=== PATIENT | female | born 1970 | race Caucasian/White ===

== ENCOUNTER 2016-12-30 01:21 | Emergency (ER) | payer OTHER ==
[~2016-12-30] VITALS: Ht 167.6 cm; Wt 84.1 kg
[~2016-12-30 01:21] MED LIST: ALBUAER19 INH; ATOR10TA82 PO; BECL0.3A INH; BUSP15TA70 PO; CLX20 PO; DOCU100C22 PO; ESTR0.3T PO; INSDGI SQ; LISI-461 PO; MAGN400T6 PO; METO25TA3 PO; NVLGI SC; ONDA4TAB46 PO; PRLSR20 PO
[2016-12-30 01:25] VITALS: TEMP 36.6; Ht 167.6 cm; Wt 84.1 kg
[2016-12-30] MEDS ORDERED: KETOROLAC TROMETHAMINE 30 MG/ML VIAL IV STA (01:51)
--- NOTE | 2016-12-30 01:51 | EMERGENCY ROOM VISIT NOTE ---
History Report prepared by Charisse: Marina Vásquez Under the Supervision of: Dr. Luz Avina D.O. First contact with patient: 01:33 Chief Complaint: NECK PAIN Stated Complaint: SEVER NECK PAIN, PRESSURE DOWN SPINE & JOINT PAIN History of Present Illness The patient is a 46 year old female who presents to the Emergency Room with complaints of constant neck pain beginning 1 week ago. The patient states that she has cervical disc disease and has been seen by multiple physicians and surgeons in the last 5 years. She notes that she had an injection in July that only helped for a few days. She reports that today she is having pressure and pain going down her spine that she has never experienced before. She complains of spine pain, joint pain in her fingers, hands, legs, feet, hip pain , leg pain, and lack of sleep secondary to pain. The patient reports that she has been diagnosed with Lyme disease and was taking antibiotics and her joint pain has worsened tonight. She notes that she goes to a pain clinic and was on hydrocodone in July. The patient reports that she was told that she also had a bulging disc. Source of History: patient Onset: 1 week ago Position: neck Quality: pressure Timing: constant Note: She complains of spine pain, joint pain in her fingers, hands, legs, feet, hip pain, leg pain, and lack of sleep secondary to pain. Review of Systems See HPI for pertinent positives & negatives. A total of 10 systems reviewed and were otherwise negative. Past Medical & Surgical Medical Problems: (1) Abdominal pain (2) Anxiety (3) section (4) DIAB MARGARITA WO COMPL, TYPE II OR UNSPEC TYPE, NOT UNCNTRLD (5) Diabetes (6) ESOPHAGEAL REFLUX (7) HTN (hypertension) (8) HYPERLIPIDEMIA NEC/NOS (9) Hypertension (10) Kidney disease (11) MIGRAINE W/O AURA W/O INTRACT MGRN W/O STATUS MIGRAINOSUS (12) OVARIAN CYST NEC/NOS (13) TOBACCO USE DISORDER (14) UTERINE LEIOMYOMA NOS Surgical Problems: (1) H/O esophagogastroduodenoscopy (2) H/O laparoscopy (3) H/O oophorectomy (4) H/O: (5) History of partial hysterectomy (6) History of tonsillectomy (7) S/P cholecystectomy Family History FH: cancer FHx: diabetes mellitus FHx: gallbladder disease FHx: heart disease FHx: hypertension FHx: lung disease FHx: seizures Heart disease Social History Smoking Status: Current Every Day Smoker Alcohol Use: none Drug Use: none Marital Status: Housing Status: lives with family Occupation Status: employed Current/Historical Medications Scheduled Amitriptyline Hcl (Elavil), 10-20 MG PO HS Beclomethasone Dip (Qvar), 2 PUFFS PO BID Citalopram (Citalopram Hydrobromide), 20 MG PO DAILY Estrogens, Conjugated (Premarin), 0.3 MG PO DAILY Insulin Aspart (Novolog Penfill), SQ AC Insulin Glargine (Lantus), SC QPM Lisinopril (Lisinopril), 10 MG PO DAILY Lorazepam (Lorazepam), 1 MG PO HS Metoclopramide HCl (Metoclopramide HCl), 5 MG PO ACHS Metoprolol Succinate (Metoprolol Succinate ER), 25 MG PO DAILY Omeprazole (Prilosec), 20 MG PO DAILY Sennosides (Senokot), 2 TAB PO BID Scheduled PRN Albuterol Hfa (Ventolin Hfa), 2 PUFFS INH Q4 PRN for SOB/Wheezing Ondansetron Hcl (Zofran), 8 MG PO Q6 PRN for Nausea or Vomiting Polyethylene Glycol 3350 (Miralax), 17 GM PO DAILY PRN for Constipation Allergies Coded Allergies: Sulfa Antibiotics (Unverified Allergy, Intermediate, RASH/SWELLS/HIVES, ) Cefuroxime (Verified Allergy, Mild, RASH, 12/30/16) BEE STING (Unverified Allergy, Unknown, swelling, 12/30/16) Nicotine (Verified Allergy, Unknown, RASH, 12/30/16) NICOTINE PATCH Physical Exam Vital Signs Date Time Temp Pulse Resp B/P Pulse Ox O2 Delivery O2 Flow Rate FiO2 12/30/16 04:13 77 18 124/73 95 12/30/16 03:06 68 16 107/73 97 Room Air 12/30/16 01:25 36.6 76 18 120/70 95 Room Air Physical Exam HEENT: Head - normocephalic and atraumatic Pupils are equal, round, and reactive to light. Extraocular eye muscles are intact, and sclera are anicteric. Nose - moist nasal mucosa without discharge. Mouth - moist buccal mucosa. Oropharynx is nonerythematous and there is no tonsillar exudate or edema noted. Neck: Supple; no JVD, nuchal rigidity, cervical lymphadenopathy, or auscultated bruits. Some discomfort with palpation over the cervical spine. Heart: Regular rate and rhythm. There is a normal S1 and S2 with no murmurs, clicks, or gallops appreciated. Lungs: Clear to auscultation bilaterally with no wheezes, rales, or rhonchi. Abdomen: Soft, completely nontender, nondistended, with good bowel sounds. There are no palpable pulsatile masses or hepatosplenomegaly. There is no guarding, rigidity, or rebound noted. Extremities: No evidence of cyanosis, clubbing, or edema. There are easily palpable peripheral pulses. Skin: warm and dry with good turgor and no rashes. Neuro: No deficits noted; nonfocal exam. Medical Decision & Procedures Laboratory Results 12/30/16 02:06 Red Blood Count 4.66, Mean Corpuscular Volume 82.8, Mean Corpuscular Hemoglobin 28.5, Mean Corpuscular Hemoglobin Concent 34.5, Mean Platelet Volume 10.3, Neutrophils (%) (Auto) 52.7, Lymphocytes (%) (Auto) 38.0, Monocytes (%) (Auto) 7.5, Eosinophils (%) (Auto) 1.3, Basophils (%) (Auto) 0.4, Neutrophils # (Auto) 4.13, Lymphocytes # (Auto) 2.98, Monocytes # (Auto) 0.59, Eosinophils # (Auto) 0.10, Basophils # (Auto) 0.03 12/30/16 02:06 Test 12/30/16 02:06 White Blood Count 7.84 K/uL (4.8-10.8) Red Blood Count 4.66 M/uL (4.2-5.4) Hemoglobin 13.3 g/dL (12.0-16.0) Hematocrit 38.6 % (37-47) Mean Corpuscular Volume 82.8 fL (80-100) Mean Corpuscular Hemoglobin 28.5 pg (25-34) Mean Corpuscular Hemoglobin Concent 34.5 g/dl (32-36) Platelet Count 140 K/uL (130-400) Mean Platelet Volume 10.3 fL (7.4-10.4) Neutrophils (%) (Auto) 52.7 % Lymphocytes (%) (Auto) 38.0 % Monocytes (%) (Auto) 7.5 % Eosinophils (%) (Auto) 1.3 % Basophils (%) (Auto) 0.4 % Neutrophils # (Auto) 4.13 K/uL (1.4-6.5) Lymphocytes # (Auto) 2.98 K/uL (1.2-3.4) Monocytes # (Auto) 0.59 K/uL (0.11-0.59) Eosinophils # (Auto) 0.10 K/uL (0-0.5) Basophils # (Auto) 0.03 K/uL (0-0.2) RDW Standard Deviation 40.2 fL (36.4-46.3) RDW Coefficient of Variation 13.3 % (11.5-14.5) Immature Granulocyte % (Auto) 0.1 % Immature Granulocyte # (Auto) 0.01 K/uL (0.00-0.02) Erythrocyte Sedimentation Rate 17 mm/hr (0-21) Anion Gap 8.0 mmol/L (3-11) Est Creatinine Clear Calc Drug Dose 124.5 ml/min Estimated GFR () 126.4 Estimated GFR (Non- 109.1 BUN/Creatinine Ratio 10.6 (10-20) Calcium Level 8.6 mg/dl (8.5-10.1) C-Reactive Protein 0.69 mg/dl (0-0.29) Beta-Hydroxybutyric Acid 0.67 mg/dL (0.2-2.81) Lyme Disease IgG Antibody NEG (NEG) Laboratory results per my review. Medications Administered Medications (Trade) Dose Ordered Sig/Terrance Route Start Time Stop Time Status Last Admin Dose Admin Ketorolac Tromethamine (Toradol Inj) 30 mg NOW STAT IV 12/30/16 01:51 12/30/16 01:52 DC 12/30/16 02:07 30 MG Hydromorphone HCl (Dilaudid Inj) 2 mg NOW STAT IV 12/30/16 03:29 12/30/16 03:30 DC 12/30/16 03:43 2 MG Procedure 0151: Toradol Inj 30mg IV. 0329: Dilaudid Inj 2mg IV. ED Course 0136: Past medical records reviewed. The patient was evaluated in room A11. A complete history and physical exam was performed. Laboratory studies were drawn as above. 0151: Toradol Inj 30mg IV. 0324: I reevaluated the patient and she is still in pain. 0329: Dilaudid Inj 2mg IV. 0404: Upon reevaluation, the patient is doing well . I discussed findings and results with her. She verbalized agreement of the treatment plan. The patient was discharged home. Medical Decision The patient is a 46 year old female who presents to the ED with neck pain. Differential diagnosis includes cervical radiculopathy, cervical disc disease, degenerative joint disease of the neck, recurrent lyme disease, arthralgias. LABS: Sed Rate 17 Lyme IGM is equivocal IGG is negative C-Reactive Protein is 0.6 Glucose of 321 BHA of 0.67 Normal Renal Function This is a 46-year-old female patient presents to the emergency department with cervical neck pain that is a chronic problem for her but has worsened over the past 4 or 5 days. Patient also describes significant arthralgias. The patient has a history of Lyme disease for which she has taken a course of antibiotics. However, her joint pain has reappeared. Her Lyme titer was a equivocal. She had an MRI just one year ago the cervical spine which showed some degenerative changes. I recommended that she follow-up with her orthopedic spine surgeon for further evaluation of the increased neck pain. As for the arthralgias, the patient can follow-up with her PCP for narcotic pain medication. She will also require close follow-up for the result of the Lyme titer. She will potentially need to go back on antibiotics. The patient was significantly hyperglycemic. I've asked her to watch her sugars closely and dose her insulin accordingly. She should follow-up with her PCP with regards to this. Impression Primary Impression: Neck pain Additional Impressions: Hyperglycemia Arthralgia Scribe Attestation The scribe's documentation has been prepared under my direction and personally reviewed by me in its entirety. I confirm that the note above accurately reflects all work, treatment, procedures, and medical decision making performed by me. Departure Information Dispostion Home / Self-Care Referrals Allyson Dent M.D. (PCP) Forms HOME CARE DOCUMENTATION FORM, IMPORTANT VISIT INFORMATION, WORK / SCHOOL INSTRUCTIONS Patient Instructions My [facility] Additional Instructions Follow up with your PCP about Lyme result and high blood sugar. Keep a strict log of your BSG for follow up Follow up with Dr. Magana about the neck pain and possible need for another MRI Problem Qualifiers
[2016-12-30 02:11] LABS: BASO % 0.4 %; BASO ABS # 0.03 K/uL (0-0.2); COMPLETE YES; EOS % 1.3 %; HEMATOCRIT 38.6 % (37-47); IG% 0.1 %; LYMPH ABS # 2.98 K/uL (1.2-3.4); MEAN CELL VOLUME 82.8 fL (80-100); MEAN CORPUSCULAR HEMOGLOBIN 28.5 pg (25-34); MEAN CORPUSCULAR HGB CONC 34.5 g/dl (32-36); MEAN PLATELET VOLUME 10.3 fL (7.4-10.4); MONO % 7.5 %; NEUT % 52.7 %; PLATELET COUNT 140 K/uL (130-400); RED BLOOD COUNT 4.66 M/uL (4.2-5.4); WHITE BLOOD COUNT 7.84 K/uL (4.8-10.8)
[2016-12-30 02:37] LABS: BUN/CREATININE RATIO 10.6 (10-20); CALCIUM 8.6 mg/dl (8.5-10.1); CREATININE 0.63 mg/dl (0.60-1.20); POTASSIUM 3.8 mmol/L (3.5-5.1)
[2016-12-30 02:38] LABS: C-REACTIVE PROTEIN 0.69 mg/dl (0-0.29)
[2016-12-30 02:48] LABS: BETA-HYDROXYBUTYRATE 0.67 mg/dL (0.2-2.81)
[2016-12-30 03:01] LABS: LYME DISEASE AB IGG NEG (NEG)
[2016-12-30 03:07] LABS: LYME DISEASE AB IGM EQUIVOCAL (NEG)
[2016-12-30] MEDS ORDERED: TPRSR/25 PO (03:10)
[2016-12-30] MEDS ORDERED: RGL/5 PO (03:15)
[2016-12-30] MEDS ORDERED: AMIT10TA6 PO (03:17)
[2016-12-30] MEDS ORDERED: INSU1INJ2 SQ (03:19)
[2016-12-30] MEDS ORDERED: INSDGI SC (03:19)
[2016-12-30] MEDS ORDERED: HYDROmorphone INJ 2 MG/ML SYR/VIAL IV STA (03:29)
[2016-12-30 04:13] VITALS: BP 124/73; PULSE 77; O2SAT 95
[2017-01-02 10:16] LABS: 18KDIGG BAND NONREACTIVE (NONREACTIVE); 23KDIGG BAND REACTIVE (NONREACTIVE); 23KDIGM BAND REACTIVE (NONREACTIVE); 28KDIGG BAND NONREACTIVE (NONREACTIVE); 30KDIGG BAND NONREACTIVE (NONREACTIVE); 39KDIGG BAND REACTIVE (NONREACTIVE); 39KDIGM BAND NONREACTIVE (NONREACTIVE); 41KDIGG BAND REACTIVE (NONREACTIVE); 41KDIGM BAND NONREACTIVE (NONREACTIVE); 45KDIGG BAND NONREACTIVE (NONREACTIVE); 58KDIGG BAND NONREACTIVE (NONREACTIVE); 66KDIGG BAND REACTIVE (NONREACTIVE); 93KDIGG BAND NONREACTIVE (NONREACTIVE)
[2017-06-15] MEDS ORDERED: ASPEC81 PO (12:03)
[2017-06-15] MEDS ORDERED: TPRSR25 PO (12:03)
[2017-06-15] MEDS ORDERED: PRT40 PO (12:03)
[2017-06-15] MEDS ORDERED: SIMV20TA5 PO (12:38)
[2017-07-29] MEDS ORDERED: POLY335019 PO (00:34)
[2017-07-29] MEDS ORDERED: LISI-461 PO (03:10)
[2017-07-29] MEDS ORDERED: PRM/3 PO (03:10)
[2017-07-29] MEDS ORDERED: QVRINH80 PO (03:13)
[2017-07-29] MEDS ORDERED: VNTHFA/IN INH (03:13)
[2017-07-29] MEDS ORDERED: ONDA8TAB6 PO (03:15)
[2017-07-29] MEDS ORDERED: SENN-63 PO (03:17)
[2017-07-29] MEDS ORDERED: ATV1 PO (03:41)
== END 2016-12-30 04:10 | disposition home or self-care (01) ==
LOC: C.EDB 01:24 → C.EDA 04:10
DX: M54.2 Cervicalgia (principal); E11.65 Type 2 diabetes mellitus with hyperglycemia; M25.50 Pain in unspecified joint; E78.5 Hyperlipidemia, unspecified; I12.9 Hypertensive chronic kidney disease with stage 1 through stage 4 chronic kidney disease, or unspecified chronic kidney disease; N18.9 Chronic kidney disease, unspecified; K21.9 Gastro-esophageal reflux disease without esophagitis; N83.209 Unspecified ovarian cyst, unspecified side; F41.9 Anxiety disorder, unspecified; F17.200 Nicotine dependence, unspecified, uncomplicated; Z90.710 Acquired absence of both cervix and uterus; Z90.49 Acquired absence of other specified parts of digestive tract; Z90.721 Acquired absence of ovaries, unilateral; Z98.890 Other specified postprocedural states; Z79.4 Long term (current) use of insulin; Z79.899 Other long term (current) drug therapy; Z88.2 Allergy status to sulfonamides; Z88.8 Allergy status to other drugs, medicaments and biological substances; Z80.9 Family history of malignant neoplasm, unspecified; Z83.3 Family history of diabetes mellitus; Z83.79 Family history of other diseases of the digestive system; Z82.49 Family history of ischemic heart disease and other diseases of the circulatory system; Z82.0 Family history of epilepsy and other diseases of the nervous system

== ENCOUNTER 2016-12-31 14:26 | Inpatient (IN) | payer OTHER ==
[~2016-12-31] VITALS: Ht 167.6 cm; Wt 86.4 kg
[~2016-12-31 14:26] MED LIST changes: -ALBUAER19 INH; +AMIT10TA6 PO; -ATOR10TA82 PO; -BECL0.3A INH; -BUSP15TA70 PO; -DOCU100C22 PO; -ESTR0.3T PO; +INSDGI SC; -INSDGI SQ; +INSU1INJ2 SQ; -LISI-461 PO; -MAGN400T6 PO; -METO25TA3 PO; -NVLGI SC; -ONDA4TAB46 PO; +RGL/5 PO; +TPRSR/25 PO
[2016-12-31] MEDS ORDERED: KETOROLAC TROMETHAMINE 30 MG/ML VIAL IV STA (16:33)
[2016-12-31] MEDS ORDERED: SODIUM CHLORIDE 0.9% 1000ML 1,000 ML IV STA (16:33)
[2016-12-31] MEDS ORDERED: ONDANSETRON INJ 2 MG/ML 2 ML VIAL IV STA (16:33)
[2016-12-31] MEDS ORDERED: FENTANYL CITRATE INJ 50 MCG/1 ML 2 ML VIAL IV PRN (16:45)
--- NOTE | 2016-12-31 16:48 | EMERGENCY ROOM VISIT NOTE ---
History Report prepared by Charisse: Lana Morelos Under the Supervision of: Dr. Alban Amanad D.O. First contact with patient: 16:23 Chief Complaint: VOMITING Stated Complaint: SEVERE JOINT PAIN, VOMITING Nursing Triage Summary: Pt reports "severe" joint pain for 2 weeks vomiting since yesterday Seen Saturday for same History of Present Illness The patient is a 46 year old female who presents to the Emergency Room with complaints of persistent vomiting that started yesterday. She notes she has not been able to keep any food or water or down. Zofran has provided minimal relief. She called her primary care doctors office this morning and states they had no openings, so they referred her to the ED for further evaluation. The patient also complains of persistent joint pain for the past 2 weeks, rating her current discomfort as a 10/10. She admits to a history of Lyme disease that was fist diagnosed in June 2016. She was treated with antibiotics immediately afterwards. The patient was seen here in the ED yesterday for the same symptoms and produced an inconclusive Lyme test. She was also noted to have elevated CRP levels. The patient states the pain is worse in her wrists, knees and toes. Source of History: patient Onset: yesterday Position: other (global) Quality: other (vomiting) Timing: other (persistent) Modifying Factors (Relieving): anti-emetics (Zofran) Review of Systems See HPI for pertinent positives & negatives. A total of 10 systems reviewed and were otherwise negative. Past Medical & Surgical Medical Problems: (1) Abdominal pain (2) Anxiety (3) section (4) DIAB MARGARITA WO COMPL, TYPE II OR UNSPEC TYPE, NOT UNCNTRLD (5) Diabetes (6) ESOPHAGEAL REFLUX (7) HTN (hypertension) (8) HYPERLIPIDEMIA NEC/NOS (9) Hypertension (10) Kidney disease (11) MIGRAINE W/O AURA W/O INTRACT MGRN W/O STATUS MIGRAINOSUS (12) OVARIAN CYST NEC/NOS (13) TOBACCO USE DISORDER (14) UTERINE LEIOMYOMA NOS Surgical Problems: (1) H/O esophagogastroduodenoscopy (2) H/O laparoscopy (3) H/O oophorectomy (4) H/O: (5) History of partial hysterectomy (6) History of tonsillectomy (7) S/P cholecystectomy Family History FH: cancer FHx: diabetes mellitus FHx: gallbladder disease FHx: heart disease FHx: hypertension FHx: lung disease FHx: seizures Heart disease Social History Smoking Status: Current Every Day Smoker Alcohol Use: none Drug Use: none Marital Status: Housing Status: lives with family Occupation Status: employed Current/Historical Medications Scheduled Amitriptyline Hcl (Elavil), 10-20 MG PO HS Beclomethasone Dip (Qvar), 2 PUFFS PO BID Citalopram (Citalopram Hydrobromide), 20 MG PO DAILY Estrogens, Conjugated (Premarin), 0.3 MG PO DAILY Insulin Aspart (Novolog Penfill), SQ AC Insulin Glargine (Lantus), SC QPM Lisinopril (Lisinopril), 10 MG PO DAILY Lorazepam (Lorazepam), 1 MG PO HS Metoclopramide HCl (Metoclopramide HCl), 5 MG PO ACHS Metoprolol Succinate (Metoprolol Succinate ER), 25 MG PO DAILY Omeprazole (Prilosec), 20 MG PO DAILY Sennosides (Senokot), 2 TAB PO BID Scheduled PRN Albuterol Hfa (Ventolin Hfa), 2 PUFFS INH Q4 PRN for SOB/Wheezing Ondansetron Hcl (Zofran), 8 MG PO Q6 PRN for Nausea or Vomiting Polyethylene Glycol 3350 (Miralax), 17 GM PO DAILY PRN for Constipation Allergies Coded Allergies: Sulfa Antibiotics (Unverified Allergy, Intermediate, RASH/SWELLS/HIVES, ) Cefuroxime (Verified Allergy, Mild, RASH, 12/31/16) BEE STING (Unverified Allergy, Unknown, swelling, 12/31/16) Nicotine (Verified Allergy, Unknown, RASH, 12/31/16) NICOTINE PATCH Physical Exam Vital Signs Date Time Temp Pulse Resp B/P Pulse Ox O2 Delivery O2 Flow Rate FiO2 12/31/16 18:30 110/69 12/31/16 18:26 63 24 96 12/31/16 18:00 114/79 12/31/16 17:56 72 15 96 12/31/16 17:40 65 18 113/79 94 Room Air 12/31/16 17:34 113/79 12/31/16 17:34 64 12/31/16 14:34 36.7 92 18 126/85 97 Room Air Physical Exam CONSTITUTIONAL/VITAL SIGNS: Reviewed / noted above. GENERAL: Non-toxic in appearance. INTEGUMENTARY: Warm, dry, and [place]. HEAD: Normocephalic. EYES: without scleral icterus or trauma. ENT/OROPHARYNX: clear and moist. LYMPHADENOPATHY/NECK: Is supple without lymphadenopathy or meningismus. RESPIRATORY: Lungs clear and equal. CARDIOVASCULAR: Regular rate and rhythm. GI/ABDOMEN: Soft and nontender. No organomegaly or pulsatile mass. No rebound or guarding. Normal bowel sounds. EXTREMITIES: Warm and well perfused. BACK: No CVA tenderness. NEUROLOGICAL: Intact without focal deficits. PSYCHIATRIC: normal affect. MUSCULOSKELETAL: Normally developed with good muscle tone. Medical Decision & Procedures ER Provider Diagnostic Interpretation: This X-Ray was reviewed and interpreted by myself and the radiologist. CHEST ONE VIEW PORTABLE IMPRESSION: No significant change compared to the prior study. No acute process. Electronically signed by: Hoang Jules M.D. 12/31/2016 4:51 PM Laboratory Results 12/31/16 17:09 Red Blood Count 4.61, Mean Corpuscular Volume 83.9, Mean Corpuscular Hemoglobin 28.9, Mean Corpuscular Hemoglobin Concent 34.4, Mean Platelet Volume 10.4, Neutrophils (%) (Auto) 53.0, Lymphocytes (%) (Auto) 40.4, Monocytes (%) (Auto) 5.1, Eosinophils (%) (Auto) 1.0, Basophils (%) (Auto) 0.4, Neutrophils # (Auto) 3.77, Lymphocytes # (Auto) 2.88, Monocytes # (Auto) 0.36, Eosinophils # (Auto) 0.07, Basophils # (Auto) 0.03 12/31/16 17:09 Test 12/31/16 17:09 White Blood Count 7.12 K/uL (4.8-10.8) Red Blood Count 4.61 M/uL (4.2-5.4) Hemoglobin 13.3 g/dL (12.0-16.0) Hematocrit 38.7 % (37-47) Mean Corpuscular Volume 83.9 fL (80-100) Mean Corpuscular Hemoglobin 28.9 pg (25-34) Mean Corpuscular Hemoglobin Concent 34.4 g/dl (32-36) Platelet Count 154 K/uL (130-400) Mean Platelet Volume 10.4 fL (7.4-10.4) Neutrophils (%) (Auto) 53.0 % Lymphocytes (%) (Auto) 40.4 % Monocytes (%) (Auto) 5.1 % Eosinophils (%) (Auto) 1.0 % Basophils (%) (Auto) 0.4 % Neutrophils # (Auto) 3.77 K/uL (1.4-6.5) Lymphocytes # (Auto) 2.88 K/uL (1.2-3.4) Monocytes # (Auto) 0.36 K/uL (0.11-0.59) Eosinophils # (Auto) 0.07 K/uL (0-0.5) Basophils # (Auto) 0.03 K/uL (0-0.2) RDW Standard Deviation 40.3 fL (36.4-46.3) RDW Coefficient of Variation 13.4 % (11.5-14.5) Immature Granulocyte % (Auto) 0.1 % Immature Granulocyte # (Auto) 0.01 K/uL (0.00-0.02) Prothrombin Time 11.4 SECONDS (9.0-12.0) Prothromb Time International Ratio 1.1 (0.9-1.1) Activated Partial Thromboplast Time 24.9 SECONDS (21.0-31.0) Partial Thromboplastin Ratio 1.0 Urine Color YELLOW Urine Appearance CLEAR (CLEAR) Urine pH 6.5 (4.5-7.5) Urine Specific [place] 1.018 (1.000-1.030) Urine Protein NEG (NEG) Urine Glucose (UA) 3+ (NEG) Urine Ketones NEG (NEG) Urine Occult Blood NEG (NEG) Urine Nitrite NEG (NEG) Urine Bilirubin NEG (NEG) Urine Urobilinogen NEG (NEG) Urine Leukocyte Esterase NEG (NEG) Urine WBC (Auto) 1-5 /hpf (0-5) Urine RBC (Auto) 0-4 /hpf (0-4) Urine Hyaline Casts (Auto) 0 /lpf (0-5) Urine Epithelial Cells (Auto) 10-20 /lpf (0-5) Urine Bacteria (Auto) NEG (NEG) Anion Gap 4.0 mmol/L (3-11) Est Creatinine Clear Calc Drug Dose 104.9 ml/min Estimated GFR () 114.2 Estimated GFR (Non- 98.5 BUN/Creatinine Ratio 11.0 (10-20) Calcium Level 9.3 mg/dl (8.5-10.1) Total Bilirubin 0.5 mg/dl (0.2-1) Direct Bilirubin < 0.1 mg/dl (0-0.2) Aspartate Amino Transf (AST/SGOT) 11 U/L (15-37) Alanine Aminotransferase (ALT/SGPT) 37 U/L (12-78) Alkaline Phosphatase 112 U/L (45-117) Total Protein 7.1 gm/dl (6.4-8.2) Albumin 3.6 gm/dl (3.4-5.0) Lipase 1075 U/L (73-393) Beta-Hydroxybutyric Acid 0.54 mg/dL (0.2-2.81) Laboratory results as stated above per my review. Medications Administered Medications (Trade) Dose Ordered Sig/Terrance Route Start Time Stop Time Status Last Admin Dose Admin Sodium Chloride (Nss 1000ml) 1,000 ml @ 999 mls/hr Q1H1M STAT IV 12/31/16 16:33 12/31/16 17:33 DC 12/31/16 17:29 999 MLS/HR Ondansetron HCl (Zofran Inj) 4 mg NOW STAT IV 12/31/16 16:33 12/31/16 16:36 DC 12/31/16 17:29 4 MG Fentanyl Citrate (Fentanyl Inj) 100 mcg Q1H PRN IV 12/31/16 16:45 01/14/17 16:44 12/31/16 17:32 100 MCG Ketorolac Tromethamine (Toradol Inj) 30 mg NOW STAT IV 12/31/16 16:33 12/31/16 16:36 DC 12/31/16 17:30 30 MG ED Course 1629: Previous medical records were reviewed. The patient was evaluated in room B8. A complete history and physical examination was performed. 1633: Toradol 30 mg IV, Zofran 4 mg IV, NSS 1000 ml @ 999 mls/hr IV. 1645: Fentanyl Citrate 100 mcg IV. 1855: I reevaluated the patient. I discussed my recommendation that she remain in the hospital for further evaluation and management and she verbalized complete understanding and agreement. 1899: I discussed the patients case with Emani Alfredo. The patient will be further evaluated. Medical Decision Etiologies such as gastroenteritis, food borne illness, infections, appendicitis , diverticulitis, inflammatory bowel disease, obstruction, GI bleed, biliary pathology, as well as others were entertained. This is a 46-year-old female who presents to the ED with a chief complaint of nausea and vomiting. The patient was seen here yesterday for severe joint pain and neck pain. She had a workup including a CBC, sedimentation rate and Lyme disease testing. The patient states that her nausea and vomiting started last night. She reports some generalized abdominal pain. Vital signs are normal. She is in no distress. Exam reveals some mild diffuse abdominal tenderness. Nothing focal. Exam was otherwise unremarkable. Chest x-ray was negative for acute disease. CBC is normal. LFTs are normal. Glucose was elevated at 326. Lipase is 1075. The patient was treated with IV fluids, IV Toradol and IV fentanyl. She was given IV Zofran. The patient has minimal tenderness after reevaluation the epigastric area. She'll be seen for further inpatient evaluation and care by the hospitalist service. Consults Time Called: 1856 Consulting Physician: Emani Alfredo Returned Call: [phone] I discussed the patients case with Emani Alfredo. The patient will be further evaluated. Impression Primary Impression: Vomiting Additional Impression: Pancreatitis Scribe Attestation The scribe's documentation has been prepared under my direction and personally reviewed by me in its entirety. I confirm that the note above accurately reflects all work, treatment, procedures, and medical decision making performed by me. Departure Information Dispostion Being Evaluated By Hospitalist Patient Instructions My [facility] Problem Qualifiers
--- NOTE | 2016-12-31 16:53 | DIAGNOSTIC IMAGING REPORT ---
CHEST ONE VIEW PORTABLE HISTORY: Generalized abdominal pain. COMPARISON: Chest 11/13/2015. FINDINGS: Mild interstitial thickening at the lung bases, unchanged. This is likely chronic. No new focal lung consolidations to suggest pneumonia. No evidence for pulmonary edema. The heart is top normal in size. No pleural effusions. No pneumothorax. IMPRESSION: No significant change compared to the prior study. No acute process. Electronically signed by: Hoang Jules M.D. 12/31/2016 4:51 PM Dictated Date/Time: 12/31/2016 4:50 PM
[2016-12-31 17:40] LABS: BASO % 0.4 %; BASO ABS # 0.03 K/uL (0-0.2); COMPLETE YES; HEMATOCRIT 38.7 % (37-47); IG% 0.1 %; LYMPH % 40.4 %; LYMPH ABS # 2.88 K/uL (1.2-3.4); MEAN CELL VOLUME 83.9 fL (80-100); MEAN CORPUSCULAR HEMOGLOBIN 28.9 pg (25-34); MEAN CORPUSCULAR HGB CONC 34.4 g/dl (32-36); MEAN PLATELET VOLUME 10.4 fL (7.4-10.4); MONO % 5.1 %; PLATELET COUNT 154 K/uL (130-400); RED BLOOD COUNT 4.61 M/uL (4.2-5.4); WHITE BLOOD COUNT 7.12 K/uL (4.8-10.8)
[2016-12-31 17:51] LABS: INR 1.1 (0.9-1.1); PROTHROMBIN TIME (PATIENT) 11.4 SECONDS (9.0-12.0)
[2016-12-31 17:52] LABS: URINE APPEARANCE CLEAR (CLEAR); URINE BILIRUBIN NEG (NEG); URINE COLOR YELLOW; URINE NITRITE NEG (NEG); URINE PH 6.5 (4.5-7.5); URINE SPECIFIC GRAVITY 1.018 (1.000-1.030); UROBILINOGEN NEG (NEG); ZZUR CULT IF INDIC CLEAN CATCH NO
[2016-12-31 17:58] LABS: MANUAL MICROSCOPIC REQUIRED? NO; REVIEW REQ? NO
[2016-12-31 18:12] LABS: ALT/SGPT 37 U/L (12-78); AST/SGOT 11 U/L (15-37); BLOOD UREA NITROGEN 8 mg/dl (7-18); CALCIUM 9.3 mg/dl (8.5-10.1); CARBON DIOXIDE 31 mmol/L (21-32); CHLORIDE 99 mmol/L (98-107); CREATININE 0.74 mg/dl (0.60-1.20); GLUCOSE 326 mg/dl (70-99); SODIUM 134 mmol/L (136-145)
[2016-12-31 18:21] LABS: ALKALINE PHOSPHATASE 112 U/L (45-117); BETA-HYDROXYBUTYRATE 0.54 mg/dL (0.2-2.81)
[2016-12-31 20:30] VITALS: BP 102/68; PULSE 76; TEMP 36.4; O2SAT 95; BMI 29.5
[2016-12-31] MEDS ORDERED: POLYETHYLENE (MIRALAX) 17 GM PACK PO PRN (20:30)
[2016-12-31] MEDS ORDERED: GLUCOSE 10 TABS/TUBE PO PRN (20:30)
[2016-12-31] MEDS ORDERED: GLUCOSE 40% GEL 15 GM TUBE PO PRN (20:30)
[2016-12-31] MEDS ORDERED: MoRPHine SULFATE 2 MG/ML CARP IV PRN (20:30)
[2016-12-31] MEDS ORDERED: ONDANSETRON 8 MG TAB PO PRN (20:30)
[2016-12-31] MEDS ORDERED: AMITRIPTYLINE HCL 10 MG TAB PO PRN (20:30)
[2016-12-31] MEDS ORDERED: DEXTROSE 50% 50 ML SYR IV PRN (20:30)
[2016-12-31] MEDS ORDERED: NITROGLYCERIN 0.4 MG SL PER TAB CHARGE SL PRN (20:30)
[2016-12-31] MEDS ORDERED: ACETAMINOPHEN 325 MG TAB PO PRN (20:30)
[2016-12-31] MEDS ORDERED: IBUPROFEN 200 MG TAB PO PRN (20:30)
[2016-12-31] MEDS ORDERED: GLUCAGON FOR INJ 1 MG VIAL SQ PRN (20:30)
[2016-12-31 20:49] LABS: MAGNESIUM 1.7 mg/dl (1.8-2.4); THYROID STIMULATING HORMONE 0.553 uIu/ml (0.300-4.500)
[2016-12-31] MEDS: INSULIN ASPART 100 UNITS/ML 3 ML PEN SC SCH (21:00)
[2016-12-31] MEDS ORDERED: MoRPHine SULFATE 2 MG/ML CARP ONE (21:20)
[2016-12-31] MEDS ORDERED: MAGNESIUM SULFATE 1GM / D5W 1 GM in PREMIXED IN D5W 100 ML IV ONE (21:30)
--- NOTE | 2016-12-31 22:25 | DIAGNOSTIC IMAGING REPORT ---
ULTRASOUND RIGHT UPPER QUADRANT ABDOMEN CLINICAL HISTORY: Right upper quadrant abdominal pain. COMPARISON STUDY: Abdominal CT dated 01/05/2016. TECHNIQUE: Real-time, grayscale, and color flow sonography of the right upper quadrant of the abdomen was performed. Images are reviewed in the transverse and longitudinal planes. FINDINGS: Liver: The liver is top normal in size and demonstrates heterogeneously increased echotexture suggesting hepatic steatosis. There is minimal central intrahepatic biliary ductal dilatation. The main portal vein is patent. Gallbladder: The gallbladder is surgically absent. The common bile duct measures up to 0.6 cm in diameter. Pancreas: Visualized portions of the pancreatic head and body are normal in appearance. Right kidney: Survey images of the right kidney demonstrate normal size and echotexture. There is no hydronephrosis. Ascites: None. IMPRESSION: 1. No acute sonographic abnormality is identified in the right upper quadrant noting status post cholecystectomy. 2. Findings suggest mild hepatic steatosis. Electronically signed by: Dilan Lazo M.D. 12/31/2016 10:23 PM Dictated Date/Time: 12/31/2016 10:21 PM
[2016-12-31] MEDS: LACTATED RINGER'S 1000ML 1,000 ML IV SCH (23:10)
[2016-12-31] MEDS: LORAZEPAM 1 MG TAB PO SCH (23:14)
[2016-12-31] MEDS: SENNA 8.6 MG TAB PO SCH (23:14)
[2016-12-31] MEDS: METOCLOPRAMIDE HCL 5 MG TAB PO SCH (23:14)
[2016-12-31 23:15] VITALS: BP 91/56; PULSE 67; TEMP 36.4; O2SAT 94
[2016-12-31] MEDS: INSULIN GLARGINE SOLOSTAR 100 UNITS/ML 3 ML PEN SC SCH (23:15)
[2016-12-31] MEDS: BECLOMETHASONE DIP HFA 80 MCG 8.7G INH INH SCH (23:16)
[2016-12-31] MEDS: ENOXAPARIN 40 MG/0.4 ML SYR SC SCH (23:18)
--- NOTE | 2016-12-31 23:37 | HISTORY & PHYSICAL EXAMINATION ---
DATE OF ADMISSION: 12/31/2016 PRIMARY CARE DOCTOR: Dr. Filipe Hoffman obtained from px and records. CHIEF COMPLAINT: Abdominal pain, nausea and vomiting. HISTORY OF PRESENT ILLNESS: Medical history significant for hypertension, hyperlipidemia, DM2 insulin requiring, ongoing tobacco abuse, GERD, gastroparesis as per records , hx Lyme disease status post treatment. Recent confinement in March 2016 for headache, abnormal Lyme tests and possible viral illness. Patient completed an outpatient course of Doxycycline prescribed by PCP as per records. Since that time has constant joint aches all over, stiffness especially in the hands and neck stiffness. Patient was seen at the Emergency Room yesterday for worsening neck and joint pain over the last few days. equiv Lyme test, abn CRP Patient subsequently sent home. Today the patient had sharp epigastric pain, intractable nausea and vomiting. Good bowel movement. Transient substernal pain, pleuritic w/sob. No fever, no chills. She denies alcohol intake. MEDICAL HISTORY: As above. SURGERIES: She has had hysterectomy, tonsillectomy, cholecystectomy, oophorectomy and other gynecologic procedures. HOME MEDICATIONS: Include; Ventolin, Elavil, citalopram, Lantus, lisinopril, lorazepam, Reglan, metoclopramide, Prilosec, Zofran, MiraLax and Senokot. ALLERGIES: TO BEE STING, CEFUROXIME, NICOTINE AND SULFA. FAMILY HISTORY: Heart disease, diabetes and rheumatoid arthritis. PERSONAL AND SOCIAL HISTORY: Half a pack daily. She denies alcohol intake. Homemaker. REVIEW OF SYSTEMS: As per HPI, all others negative. PHYSICAL EXAMINATION: VITAL SIGNS: Blood pressure is noted to be 110/60, pulse rate 63, RR 20, temperature 37 O2 sats 98 on room air. GENERAL: Noted to be uncomfortable, overweight. No respiratory distress. Looks older than stated age. SKIN: Normal color. HEENT: [place] palpebral conjunctivae. Dry mucosa. NECK: No JVD. Supple. CHEST: Clear to auscultation. No anterior chest wall tenderness. ABDOMEN: Epigastric tenderness. EXTREMITIES: No edema, no tenderness NEUROLOGIC: No gross focality. LABORATORIES: Hemoglobin was noted to be 13.3 hematocrit 38.7, white cell count 10 platelets 154. Sodium 130, potassium 4, chloride 99, CO2 31, BUN 8, creatinine 0.7 and glucose 326. Troponin was normal. Lipase was 1075. D-dimer was normal. HgA1c 9.1 (03/2016) Chest x-ray; borderline cardiomegaly. EKG; no ischemia. ASSESSMENT: 1. Atypical chest pain/sob possibly from anxiety/nausea/vomiting sx 2. hyperlipasemia 2 vomiting sx possible pancreatitis 3. joint aches/neck pain for months px attributes sx to Lyme dse sp tx ro rheumatoid arthritis. 4. History of Lyme disease status post treatment equivocal rpt Lyme test from yesterday's ER visit 5. HTN , stable 6. DM2, insulin-requiring suboptimal control as of recent outpx HgA1c. 7. ongoing tobacco abuse PLAN: PCU. analgesia (judicious narcotic use), anti-emetics, anxiolytic prn Follow cardiac markers, 2D echo. Follow lipase. IVF, bowel rest for now. Biliary ultrasound. Further management pending workup results. serologic testing for rheumatoid arthritis outpx Rheumatology consult ID consult RE abn Lyme test Px counselled to stop smoking. Basal insulin adjusted for n.p.o./sips state for now, ISS BG goal 140-180. Carb count coverage indicated for suboptimal blood sugar control. Px due for HgA1C recheck. DVT prophylaxis. Lovenox SQ Full code. MTDD
[2017-01-01 04:17] VITALS: BP 100/62; PULSE 61; TEMP 36.6; O2SAT 95
[2017-01-01 06:10] LABS: BASO % 0.5 %; BASO ABS # 0.03 K/uL (0-0.2); COMPLETE YES; EOS % 1.3 %; IG% 0.2 %; LYMPH % 49.2 %; MEAN CORPUSCULAR HEMOGLOBIN 28.6 pg (25-34); MEAN CORPUSCULAR HGB CONC 33.7 g/dl (32-36); MEAN PLATELET VOLUME 9.8 fL (7.4-10.4); MONO % 5.4 %; NEUT % 43.4 %; PLATELET COUNT 126 K/uL (130-400); RED BLOOD COUNT 4.12 M/uL (4.2-5.4)
[2017-01-01] MEDS: METOCLOPRAMIDE HCL 5 MG TAB PO SCH ×4 (06:28→21:17)
[2017-01-01] MEDS: LACTATED RINGER'S 1000ML 1,000 ML IV SCH ×3 (06:28→16:45)
[2017-01-01] MEDS: OXYCODONE/ACETAMINOPHEN 5-325 TAB PO PRN ×3 (06:35→23:13)
[2017-01-01 06:51] LABS: ALKALINE PHOSPHATASE 102 U/L (45-117); ALT/SGPT 64 U/L (12-78); AST/SGOT 55 U/L (15-37); BLOOD UREA NITROGEN 8 mg/dl (7-18); BUN/CREATININE RATIO 14.8 (10-20); C-REACTIVE PROTEIN 0.36 mg/dl (0-0.29); CALCIUM 8.5 mg/dl (8.5-10.1); CARBON DIOXIDE 30 mmol/L (21-32); CHLORIDE 105 mmol/L (98-107); CREATININE 0.53 mg/dl (0.60-1.20); GLUCOSE 206 mg/dl (70-99); HDL CHOLESTEROL 20 mg/dl; MAGNESIUM 1.9 mg/dl (1.8-2.4); SODIUM 139 mmol/L (136-145); TRIGLYCERIDES 402 mg/dl (0-150)
[2017-01-01 06:53] LABS: ESTIMATED AVERAGE GLUCOSE 235 mg/dl; HA1C FLAG Normal (Normal)
[2017-01-01 06:56] LABS: CHOLESTEROL 191 mg/dl (0-200); CHOLESTEROL/HDL RATIO 9.6; RHEUMATOID FACTOR < 10.0 U/mL (0-15)
[2017-01-01 07:41] VITALS: BP 99/64; PULSE 67; TEMP 37; O2SAT 93
[2017-01-01] MEDS: BECLOMETHASONE DIP HFA 80 MCG 8.7G INH INH SCH ×2 (08:13→21:19)
[2017-01-01] MEDS: CITALOPRAM 20 MG TAB PO SCH (08:13)
[2017-01-01] MEDS: SENNA 8.6 MG TAB PO SCH ×2 (08:14→21:19)
[2017-01-01] MEDS: PANTOprazole SOD 40 MG TAB PO SCH (08:14)
[2017-01-01] MEDS: METOPROLOL SUCC 25MG EXT REL TAB PO SCH (08:15)
[2017-01-01] MEDS: LISINOPRIL 10 MG TAB PO SCH (08:15)
[2017-01-01] MEDS: KETOROLAC TROMETHAMINE 30 MG/ML VIAL IV PRN ×2 (08:16→17:46)
[2017-01-01] MEDS: INSULIN GLARGINE SOLOSTAR 100 UNITS/ML 3 ML PEN SC SCH ×2 (08:18→21:28)
[2017-01-01] MEDS: INSULIN ASPART 100 UNITS/ML 3 ML PEN SC SCH ×4 (08:19→21:27)
[2017-01-01 12:05] VITALS: Ht 167.6 cm; Wt 86.4 kg
--- NOTE | 2017-01-01 14:25 | ECHOCARDIOGRAM REPORT ---
*NOTICE TO RECEIVING LIBERTARIAN AGENCY This information is strictly Confidential and protected under [place] law. [place] law prohibits you from making any further disclosure of this information unless further disclosure is expressly permitted by the written consent of the person to whom it pertains or is authorized by law. A general authorization for the release of medical or other information is not sufficient for this purpose. Hospital accepts no responsibility if the information is made available to any other person, INCLUDING THE PATIENT. Interpretation Summary * Name: HIEN BECKHAM Study Date: 01/01/2017 10:54 AM BP: 99/64 mmHg * Patient Location: [facility]\S\N277\S\1 HR: 56 * : 1970 (M/d/yyyy) Gender: Female Height: 66 in * Age: 46 yrs Ethnicity: [place] Weight: 181 lb * Ordering Physician: Saw French * Referring Physician: Self, Referred * Performed By: Esther Corbin RCS * * Reason For Study: CHEST PAIN * BSA: 1.9 m2 * -- Conclusions -- * The left ventricle is normal in size. * Left ventricular systolic function is normal. * Ejection Fraction = 55-60%. * The right ventricular systolic function is normal. * The left atrial size is normal. * Right atrial size is normal. * No significant valvular pathology. Procedure Details * A complete two-dimensional transthoracic echocardiogram was performed (2D, M-mode, Doppler and color flow Doppler). Left Ventricle * The left ventricle is normal in size. * There is mild concentric left ventricular hypertrophy. * Ejection Fraction = 55-60%. * Left ventricular systolic function is normal. Right Ventricle * The right ventricle is normal in size and function. * There is normal right ventricular wall thickness. * The right ventricular systolic function is normal. Atria * The left atrial size is normal. * Right atrial size is normal. * The interatrial septum is intact with no evidence for an atrial septal defect. Mitral Valve * The mitral valve is normal in structure and function. * There is no mitral valve stenosis. * There is no mitral regurgitation noted. Tricuspid Valve * The tricuspid valve is normal in structure and function. * There is trace tricuspid regurgitation. Aortic Valve * The aortic valve is normal in structure and function. * No aortic regurgitation is present. Pulmonic Valve * The pulmonic valve is normal in structure and function. * There is no pulmonic valvular regurgitation. Great Vessels * The aortic root is normal size. * No obvious dissection could be visualized. * The pulmonary artery is normal size. Pericardium/Pleural * There is no pericardial effusion. MMode 2D Measurements and Calculations IVSd 1.1 cm IVSs 1.7 cm LVIDd 4.8 cm LVIDs 3.3 cm LVPWd 1.5 cm LVPWs 1.5 cm IVS/LVPW 0.70 FS 30.8 % EDV(Teich) 106.2 ml ESV(Teich) 44.3 ml EF(Teich) 58.2 % EDV(cubed) 108.9 ml ESV(cubed) 36.1 ml EF(cubed) 66.8 % % IVS thick 55.8 % % LVPW thick -1.73 % LV mass(C)d 244.3 grams LV mass(C)dI 127.5 grams/m\S\2 LV mass(C)s 197.3 grams LV mass(C)sI 102.9 grams/m\S\2 SV(Teich) 61.9 ml SI(Teich) 32.3 ml/m\S\2 SV(cubed) 72.7 ml SI(cubed) 37.9 ml/m\S\2 Ao root diam 4.6 cm Ao root area 16.7 cm\S\2 LA dimension 3.6 cm LA/Ao 0.79 LVOT diam 2.2 cm LVOT area 3.7 cm\S\2 LVAd ap4 37.0 cm\S\2 LVLd ap4 9.3 cm EDV(MOD-sp4) 122.0 ml EDV(sp4-el) 125.0 ml LVAs ap4 25.0 cm\S\2 LVLs ap4 8.0 cm ESV(MOD-sp4) 66.3 ml ESV(sp4-el) 66.2 ml EF(MOD-sp4) 45.7 % EF(sp4-el) 47.0 % LVAd ap2 33.2 cm\S\2 LVLd ap2 8.5 cm EDV(MOD-sp2) 115.5 ml EDV(sp2-el) 109.5 ml LVAs ap2 20.3 cm\S\2 LVLs ap2 6.8 cm ESV(MOD-sp2) 54.8 ml ESV(sp2-el) 51.6 ml EF(MOD-sp2) 52.5 % EF(sp2-el) 52.9 % LVLd %diff -8.98 % EDV(MOD-bp) 123.2 ml LVLs %diff -17.82 % ESV(MOD-bp) 65.0 ml EF(MOD-bp) 47.2 % SV(MOD-sp4) 55.7 ml SI(MOD-sp4) 29.1 ml/m\S\2 SV(MOD-sp2) 60.7 ml SI(MOD-sp2) 31.7 ml/m\S\2 SV(MOD-bp) 58.2 ml SI(MOD-bp) 30.4 ml/m\S\2 SV(sp4-el) 58.8 ml SI(sp4-el) 30.7 ml/m\S\2 SV(sp2-el) 57.9 ml SI(sp2-el) 30.2 ml/m\S\2 Doppler Measurements and Calculations MV E max sukhdeep 59.9 cm/sec MV A max sukhdeep 39.9 cm/sec MV E/A 1.5 MV P1/2t max sukhdeep 64.7 cm/sec MV P1/2t 67.8 msec MVA(P1/2t) 3.2 cm\S\2 MV dec slope 279.5 cm/sec\S\2 MV dec time 0.34 sec Ao V2 max 135.8 cm/sec Ao max PG 7.4 mmHg Ao max PG (full) 4.1 mmHg HAROON(V,A) 2.5 cm\S\2 HAROON(V,D) 2.5 cm\S\2 LV V1 max PG 3.2 mmHg LV V1 max 89.8 cm/sec PA V2 max 82.4 cm/sec PA max PG 2.7 mmHg
--- NOTE | 2017-01-01 14:40 | Progress Note ---
Progress Note Date of Service Jan 01, 2017. Progress Note ID Consult Dictated #[id number] A/P: 1. Equivocal lyme titer -can start doxy emperically pending titer -Continue supportive care -Will follow, thank you
--- NOTE | 2017-01-01 15:05 | INFECT. DISEASE CONSULTATION ---
DATE OF CONSULTATION: 01/01/2017 REQUESTING PHYSICIAN: Saw French MD HISTORY OF PRESENT ILLNESS: This is a 46-year-old female who was admitted from home after she had worsening nausea and diffuse joint pain at home. She states that the nausea started 1-2 days prior to admission. She initially presented to the ER on the 30 of December and was discharged to home. She continued to have nausea and difficulty eating and she represented to the Emergency Room yesterday. Her lipase was noted to be greater than 1000 and she was subsequently admitted to the hospital. An ultrasound of the abdomen done today shows a surgically absent gallbladder, but no pathology is noted. Her lipase has improved to 668. Her urinalysis was negative. An HARLEY is pending. She did have a Lyme screen done when she was in the Emergency Room on the 30 of December and this was equivocal. She states she was tested for Lyme disease in July and this was a positive test. At that time she also had an equivocal screen. She did have 2 out of 3 IgM bands and she was treated with a course of doxycycline by her primary care physician. She states at that time, her major symptoms were joint pain and fatigue. She did have resolution of her symptoms with the treatment. She presents now with 3 weeks of joint pain which she describes as diffuse hands, feet, shoulders and knees. She is able to ambulate and carry on activities of daily living but does have pain. She has tried Tylenol and ibuprofen at home without success. She does not admit to any fevers. Her white blood cell count was normal at 6.3, her sed rate is 7. She has not been started on any antibiotics. She has been afebrile since admission to the hospital. She currently states she does not feel significantly better since admission to the hospital. She denies any headache or neck stiffness. She denies any fevers or chills currently. She denies chest pain, cough, shortness of breath. She still has abdominal pain and nausea. She is eating. She has no urinary symptoms. All remaining review of systems are reviewed and are negative except for as noted above. PAST MEDICAL HISTORY: Significant for hypertension, high cholesterol, type 2 diabetes, GERD, gastroparesis, and history of Lyme disease in July. PAST SURGICAL HISTORY: Significant for hysterectomy, tonsillectomy, cholecystectomy, oophorectomy. ALLERGIES: CEFTIN AND SULFA. FAMILY HISTORY: Noncontributory. SOCIAL HISTORY: Significant for daily tobacco use. She denies any alcohol or drug use. She denies any tick bites in the recent past. She states that a few weeks ago she had bilateral hand rash which were itchy, but she does not describe a rash in bulls eye pattern. CURRENT MEDICATIONS: Celexa, Zestril, Toprol-XL, Protonix, Lovenox, insulin, QVAR, Lantus, Ativan, Reglan, Senokot, Tylenol, Advil, Percocet, Toradol, morphine, Elavil, Zofran, MiraLax. PHYSICAL EXAMINATION: VITAL SIGNS: She is afebrile, pulse 67, respiratory rate is 20, blood pressure 99/64, oxygen saturation is 93% to 95% on room air. GENERAL: She is awake, alert and oriented x3. She is in no acute distress. HEENT: Mucous membranes are moist. Extraocular muscles are intact. HEART: Regular. LUNGS: Clear bilaterally. ABDOMEN: Soft, nontender, nondistended. There is no edema. SKIN: Without rash. LABORATORY STUDIES: A Lyme screen from the is equivocal. Lyme titer is pending. CBC today reveals a white blood cell count of 6.3, hemoglobin 11.8, platelets are 126. Sed rate is 7. Chemistry panel reveals a sodium of 139, potassium 4.0, chloride 105, bicarbonate 30, BUN 8, creatinine 0.5, glucose is 154, AST is 55, ALT is 64. CRP is 0.3. Lipase is 668 improved from 1075 yesterday. Urinalysis on the is unremarkable. There is no micro to review. Imaging is as above. ASSESSMENT AND PLAN: Equivocal Lyme screen. Certainly, she can be started empirically on doxycycline pending the results of her Lyme titer. She does have a history of previously diagnosed and treated Lyme disease in July. An HARLEY is pending. Rheumatoid factor and vitamin D could also be checked as well. We will follow along with you. Thank you for this consultation.
[2017-01-01] MEDS ORDERED: OPTIRAY 320 IV PRN (15:15)
[2017-01-01 15:40] VITALS: BP 94/58; PULSE 57; TEMP 36.7; O2SAT 95
--- NOTE | 2017-01-01 15:49 | DIAGNOSTIC IMAGING REPORT ---
CT ABD/PELVIS IV CONTRAST ONLY CLINICAL HISTORY: Chest and upper abdominal pain. Possible pancreatitis. COMPARISON STUDY: 01/05/2016 TECHNIQUE: Following the IV administration of 94 mL of Optiray-320, CT scan of the abdomen and pelvis was performed from the lung bases to the proximal femurs. Images are reviewed in the axial, sagittal, and coronal planes. IV contrast was administered without complication. CT DOSE: 538.70 mGy.cm FINDINGS: Lower chest: There is mild septal thickening and dependent atelectatic change. There are bilateral subcentimeter breast nodules. Liver: There is hepatic steatosis. No focal masses are visualized. Gallbladder: Surgically absent Spleen: The spleen is enlarged measuring 16 cm Pancreas: No pancreatic masses are visualized. There are no peripancreatic fluid collections. There are no CT findings to indicate acute pancreatitis. Adrenal glands: Unremarkable. Kidneys: There is symmetric renal cortical enhancement. The kidneys are normal in size without hydronephrosis. Bowel: There are no transition zones indicate bowel obstruction. There is no evidence of acute diverticulitis. There is no evidence of acute appendicitis. Peritoneum: There is no intraperitoneal free air or abdominal ascites. Vasculature: The abdominal aorta is normal in course and caliber. Adenopathy: None. Pelvic viscera: The uterus appears surgically absent. Skeletal structures: No destructive osseous lesions are seen. IMPRESSION: 1. No evidence of bowel obstruction. No evidence of free air 2. Surgically absent gallbladder and uterus 3. Hepatic steatosis 4. Splenomegaly 5. No evidence of diverticulitis. No evidence of acute appendicitis 6. No evidence of pancreatitis 7. Mild pulmonary septal edema Electronically signed by: Anthony Shepherd M.D. 01/01/2017 3:47 PM Dictated Date/Time: 01/01/2017 3:42 PM
--- NOTE | 2017-01-01 15:49 | Progress Note ---
Internal Med Progress Note Date of Service: Jan 01, 2017. Provider Documentation: SUBJECTIVE: resting comfortably afebrile says nausea resolved has mild abdominal tenderness 'says hungry and request for food OBJECTIVE: Vital Signs-as noted below Exam: General-Alert and oriented ENT-normal hearing Neck-no neck masses Lungs-cta b/l no wheezing or crackles Heart-s1 and s2 heard regular rate and rhythm no murmurs Abdomen-soft bowel sounds present mild epigastric tenderness no distension Extremities-no edema no erythema Neuro-Alert and oriented moves extremities Lab data as noted below. ASSESSMENT & PLAN: 1. Atypical chest pain/sob possibly from anxiety/nausea/vomiting sx serial CE, ekg and Echo unremarkable currently asymptomatic 2. hyperlipasemia 2 vomiting sx possible pancreatitis will f/u ct scan 3. joint aches/neck pain for months px attributes sx to Lyme dse sp tx ro rheumatoid arthritis. ID on board 4. History of Lyme disease status post treatment equivocal rpt Lyme test from yesterday's ER visit 5. HTN , stable 6. DM2, insulin-requiring suboptimal control as of recent outpx HgA1c. Plan to d/c on insulin pens will monitor 7. ongoing tobacco abuse DVT PROPHYLAXIS Lovenox DISPOSITION to be determined Vital Signs: Date Time Temp Pulse Resp B/P Pulse Ox O2 Delivery O2 Flow Rate FiO2 01/01/17 15:40 36.7 57 20 94/58 95 Room Air 01/01/17 12:00 Room Air 01/01/17 08:00 Room Air 01/01/17 07:41 37.0 67 99/64 93 Room Air 01/01/17 04:17 36.6 61 20 100/62 95 Room Air 01/01/17 04:00 Room Air 01/01/17 00:00 Room Air 12/31/16 23:15 36.4 67 20 91/56 94 Room Air 12/31/16 20:30 36.4 76 18 102/68 95 Room Air 12/31/16 20:12 62 18 123/80 98 12/31/16 18:30 110/69 12/31/16 18:26 63 24 96 12/31/16 18:00 114/79 12/31/16 17:56 72 15 96 12/31/16 17:40 65 18 113/79 94 Room Air 12/31/16 17:34 113/79 12/31/16 17:34 64 Lab Results: Results Past 24 Hours Test 12/31/16 17:09 12/31/16 21:22 01/01/17 05:59 01/01/17 06:59 Range/Units White Blood Count 7.12 6.30 4.8-10.8 K/uL Red Blood Count 4.61 4.12 4.2-5.4 M/uL Hemoglobin 13.3 11.8 12.0-16.0 g/dL Hematocrit 38.7 35.0 37-47 % Mean Corpuscular Volume 83.9 85.0 80-100 fL Mean Corpuscular Hemoglobin 28.9 28.6 25-34 pg Mean Corpuscular Hemoglobin Concent 34.4 33.7 32-36 g/dl Platelet Count 154 126 130-400 K/uL Mean Platelet Volume 10.4 9.8 7.4-10.4 fL Neutrophils (%) (Auto) 53.0 43.4 % Lymphocytes (%) (Auto) 40.4 49.2 % Monocytes (%) (Auto) 5.1 5.4 % Eosinophils (%) (Auto) 1.0 1.3 % Basophils (%) (Auto) 0.4 0.5 % Neutrophils # (Auto) 3.77 2.74 1.4-6.5 K/uL Lymphocytes # (Auto) 2.88 3.10 1.2-3.4 K/uL Monocytes # (Auto) 0.36 0.34 0.11-0.59 K/uL Eosinophils # (Auto) 0.07 0.08 0-0.5 K/uL Basophils # (Auto) 0.03 0.03 0-0.2 K/uL RDW Standard Deviation 40.3 41.6 36.4-46.3 fL RDW Coefficient of Variation 13.4 13.5 11.5-14.5 % Immature Granulocyte % (Auto) 0.1 0.2 % Immature Granulocyte # (Auto) 0.01 0.01 0.00-0.02 K/uL Prothrombin Time 11.4 9.0-12.0 SECONDS Prothromb Time International Ratio 1.1 0.9-1.1 Activated Partial Thromboplast Time 24.9 21.0-31.0 SECONDS Partial Thromboplastin Ratio 1.0 D-Dimer 400 0-500 ug/L FEU Urine Color YELLOW Urine Appearance CLEAR CLEAR Urine pH 6.5 4.5-7.5 Urine Specific Coyle 1.018 1.000-1.030 Urine Protein NEG NEG Urine Glucose (UA) 3+ NEG Urine Ketones NEG NEG Urine Occult Blood NEG NEG Urine Nitrite NEG NEG Urine Bilirubin NEG NEG Urine Urobilinogen NEG NEG Urine Leukocyte Esterase NEG NEG Urine WBC (Auto) 1-5 0-5 /hpf Urine RBC (Auto) 0-4 0-4 /hpf Urine Hyaline Casts (Auto) 0 0-5 /lpf Urine Epithelial Cells (Auto) 10-20 0-5 /lpf Urine Bacteria (Auto) NEG NEG Sodium Level 134 139 136-145 mmol/L Potassium Level 4.0 4.0 3.5-5.1 mmol/L Chloride Level 99 105 98-107 mmol/L Carbon Dioxide Level 31 30 21-32 mmol/L Anion Gap 4.0 4.0 3-11 mmol/L Blood Urea Nitrogen 8 8 7-18 mg/dl Creatinine 0.74 0.53 0.60-1.20 mg/dl Est Creatinine Clear Calc Drug Dose 104.9 146.9 ml/min Estimated GFR () 114.2 133.8 Estimated GFR (Non- 98.5 115.5 BUN/Creatinine Ratio 11.0 14.8 10-20 Random Glucose 326 206 70-99 mg/dl Estimated Average Glucose 235 mg/dl Hemoglobin A1c 9.8 4.5-5.6 % Calcium Level 9.3 8.5 8.5-10.1 mg/dl Magnesium Level 1.7 1.9 1.8-2.4 mg/dl Total Bilirubin 0.5 0.5 0.2-1 mg/dl Direct Bilirubin < 0.1 0-0.2 mg/dl Aspartate Amino Transf (AST/SGOT) 11 55 15-37 U/L Alanine Aminotransferase (ALT/SGPT) 37 64 12-78 U/L Alkaline Phosphatase 112 102 45-117 U/L Troponin I < 0.015 < 0.015 0-0.045 ng/ml Total Protein 7.1 5.9 6.4-8.2 gm/dl Albumin 3.6 3.0 3.4-5.0 gm/dl Lipase 1075 668 73-393 U/L Beta-Hydroxybutyric Acid 0.54 0.2-2.81 mg/dL Thyroid Stimulating Hormone (TSH) 0.553 0.300-4.500 uIu/ml Bedside Glucose 174 187 70-90 mg/dl Erythrocyte Sedimentation Rate 7 0-21 mm/hr C-Reactive Protein 0.36 0-0.29 mg/dl Globulin 2.9 2.5-4.0 gm/dl Albumin/Globulin Ratio 1.0 0.9-2 Triglycerides Level 402 0-150 mg/dl Cholesterol Level 191 0-200 mg/dl HDL Cholesterol 20 mg/dl LDL Cholesterol, Calculated mg/dl VLDL Cholesterol, Calculated mg/dl Cholesterol/HDL Ratio 9.6 Rheumatoid Factor < 10.0 0-15 U/mL Cyclic Citrullinated Peptide IgG Ab < 0.40 0-4.99 U/mL Test 01/01/17 11:29 Range/Units Bedside Glucose 154 70-90 mg/dl
[2017-01-01 19:35] VITALS: BP 108/20; PULSE 55; TEMP 36.9; O2SAT 95
[2017-01-01] MEDS: ENOXAPARIN 40 MG/0.4 ML SYR SC SCH (21:19)
[2017-01-01] MEDS: LORAZEPAM 1 MG TAB PO SCH (21:21)
[2017-01-01 23:38] VITALS: BP 117/71; PULSE 75; TEMP 36.9; O2SAT 96
[2017-01-02] VITALS (8 sets, daily range): BP systolic 111–156; BP diastolic 71–83; PULSE 57–75; TEMP 36.7–36.9; O2SAT 91–97
[2017-01-02] MEDS: LACTATED RINGER'S 1000ML 1,000 ML IV SCH ×2 (01:17→09:39)
[2017-01-02] MEDS: KETOROLAC TROMETHAMINE 30 MG/ML VIAL IV PRN (01:48)
[2017-01-02] MEDS: OXYCODONE/ACETAMINOPHEN 5-325 TAB PO PRN (05:11)
[2017-01-02] MEDS: INSULIN ASPART 100 UNITS/ML 3 ML PEN SC SCH ×2 (06:30→13:00)
[2017-01-02] MEDS: METOPROLOL SUCC 25MG EXT REL TAB PO SCH (07:47)
[2017-01-02] MEDS: BECLOMETHASONE DIP HFA 80 MCG 8.7G INH INH SCH (07:50)
[2017-01-02] MEDS: SENNA 8.6 MG TAB PO SCH (07:50)
[2017-01-02] MEDS: CITALOPRAM 20 MG TAB PO SCH (07:51)
[2017-01-02] MEDS: METOCLOPRAMIDE HCL 5 MG TAB PO SCH ×2 (07:51→10:37)
[2017-01-02] MEDS: LISINOPRIL 10 MG TAB PO SCH (07:51)
[2017-01-02] MEDS: PANTOprazole SOD 40 MG TAB PO SCH (07:51)
[2017-01-02] MEDS: INSULIN GLARGINE SOLOSTAR 100 UNITS/ML 3 ML PEN SC SCH (08:39)
--- NOTE | 2017-01-02 12:52 | Discharge Instructions ---
Discharge Instructions Date of Service Jan 02, 2017. Admission Reason for Admission: Chest Pain, Pancreatitis Discharge Discharge Diagnosis / Problem: abdominal pain joint pains Discharge Goals Goal(s): Decrease discomfort, Improve function Activity Recommendations Activity Limitations: resume your previous activity . Instructions / Follow-Up Instructions / Follow-Up FOLLOWUP WITH FAMILY DOCTOR ON January AT 1PM Current Hospital Diet Patient's current hospital diet: Low Fiber Diet Discharge Diet Recommended Diet: AHA Diet (Heart Healthy), Diabetes Type 2 Diet Pending Studies Studies pending at discharge: no Laboratory Results Hemoglobin A1c Test 12/31/16 17:09 Range/Units Estimated Average Glucose 235 mg/dl Hemoglobin A1c 9.8 H 4.5-5.6 % Lipid Panel Test 01/01/17 05:59 Range/Units Triglycerides Level 402 H 0-150 mg/dl Cholesterol Level 191 0-200 mg/dl HDL Cholesterol 20 mg/dl Cholesterol/HDL Ratio 9.6 LDL Cholesterol, Calculated mg/dl Medical Emergencies . Who to Call and When: Medical Emergencies: If at any time you feel your situation is an emergency, please call 911 immediately. . Non-Emergent Contact Non-Emergency issues call your: Primary Care Provider . . "Provider Documentation" section prepared by Hraesh Lockett. . VTE Core Measure Inpt VTE Proph given/why not?: Enoxaparin (Lovenox)SQ
--- NOTE | 2017-01-02 18:13 | Progress Note ---
Internal Med Progress Note Date of Service: Jan 02, 2017. Provider Documentation: SUBJECTIVE: resting comfortably no nausea or abdominal pain tolerating soft diet still has joint pains wants to go home OBJECTIVE: Vital Signs-as noted below Exam: General-Alert and oriented ENT-normal hearing Neck-no neck masses Lungs-cta b/l no wheezing or crackles Heart-s1 and s2 heard regular rate and rhythm no murmurs Abdomen-soft bowel sounds present no epigastric tenderness no distension Extremities-no edema no erythema Neuro-Alert and oriented moves extremities Lab data as noted below. ASSESSMENT & PLAN: 1. Atypical chest pain/sob possibly from anxiety/nausea/vomiting sx serial CE, ekg and Echo unremarkable currently asymptomatic 2. hyperlipasemia 2 vomiting sx possible pancreatitis ct scan unremarkable;e abdominal pain resolved toleratying diet 3. joint aches/neck pain for months px attributes sx to Lyme dse sp tx ro rheumatoid arthritis. RA factor and HARLEY negative lyme titer unremarkable ID on board f/u with pcp 4. History of Lyme disease status post treatment equivocal rpt Lyme test from yesterday's ER visit d/w ID and no plan for treatment 5. HTN , stable 6. DM2, insulin-requiring suboptimal control as of recent outpx HgA1c. There was a Plan to d/c on insulin pens- may be can done with pcp 7. ongoing tobacco abuse Discharged home Vital Signs: Date Time Temp Pulse Resp B/P Pulse Ox O2 Delivery O2 Flow Rate FiO2 01/02/17 13:07 36.7 75 18 97 Room Air 01/02/17 12:00 91 Room Air 01/02/17 11:39 36.7 75 18 156/83 97 Room Air 01/02/17 08:00 91 Room Air 01/02/17 07:22 36.9 58 18 111/71 91 Room Air 01/02/17 04:36 36.8 57 16 134/79 95 Room Air 01/02/17 04:00 96 Room Air 01/02/17 00:00 96 Room Air 01/01/17 23:38 36.9 75 20 117/71 96 Room Air 01/01/17 20:20 Room Air 01/01/17 19:35 36.9 55 18 108/20 95 Room Air Lab Results: Results Past 24 Hours Test 01/01/17 20:18 01/02/17 07:31 Range/Units Bedside Glucose 190 140 70-90 mg/dl
--- NOTE | 2017-01-02 18:18 | Discharge Summary ---
Discharge Summary Date of Service Jan 02, 2017. Discharge Summary Admission Date: Dec 31, 2016 at 19:41 Discharge Date: Jan 02, 2017 Discharge Disposition: Home Principal Diagnosis: abdominal pain 'joint pains Secondary Diagnoses/Problems: for hypertension, hyperlipidemia, DM2 insulin requiring, ongoing tobacco abuse, GERD, gastroparesis as per records , hx Lyme disease status post treatment. Procedures: ABDOMINAL US: 1. No acute sonographic abnormality is identified in the right upper quadrant noting status post cholecystectomy. 2. Findings suggest mild hepatic steatosis. CT ABD/PELVIS: 1. No evidence of bowel obstruction. No evidence of free air 2. Surgically absent gallbladder and uterus 3. Hepatic steatosis 4. Splenomegaly 5. No evidence of diverticulitis. No evidence of acute appendicitis 6. No evidence of pancreatitis 7. Mild pulmonary septal edema Consultations: ID Medication Reconciliation Continued Medications: Albuterol Hfa (Ventolin Hfa) 200 Puffs/51493 Mcg Aers 2 PUFFS INH Q4 PRN for SOB/Wheezing, #1 INHALER Amitriptyline Hcl (Elavil) 10 Mg Tab 10-20 MG PO HS Beclomethasone Dip (Qvar) 80 Mcg/Act Aer 2 PUFFS PO BID Citalopram (Citalopram Hydrobromide) 20 Mg Tab 20 MG PO DAILY, TAB Estrogens, Conjugated (Premarin) 0.3 Mg Tab 0.3 MG PO DAILY Insulin Aspart (Novolog Penfill) 100 Unit/Ml Inj SQ AC SLIDING SCALE COVERAGE Insulin Glargine (Lantus) 100 Unit/Ml Inj SC QPM SLIDING SCALE BSG <150 TAKE 5-8 UNITS BSG >150 TAKE 15 UNITS Lisinopril (Lisinopril) 10 Mg Tab 10 MG PO DAILY Lorazepam (Lorazepam) 1 Mg Tab 1 MG PO HS Metoclopramide HCl (Metoclopramide HCl) 5 Mg Tab 5 MG PO ACHS Metoprolol Succinate (Metoprolol Succinate ER) 25 Mg Tabcr 25 MG PO DAILY Omeprazole (Prilosec) 20 Mg Capcr 20 MG PO DAILY, CAP Ondansetron Hcl (Zofran) 8 Mg Tab 8 MG PO Q6 PRN for Nausea or Vomiting, TAB Polyethylene Glycol 3350 (Miralax) 1 Pow Pow 17 GM PO DAILY PRN for Constipation, #255 GM Sennosides (Senokot) 8.6 Mg Tab 2 TAB PO BID, TAB Admission Information HPI (per Admitting provider): Medical history significant for hypertension, hyperlipidemia, DM2 insulin requiring, ongoing tobacco abuse, GERD, gastroparesis as per records , hx Lyme disease status post treatment. Recent confinement in March 2016 for headache, abnormal Lyme tests and possible viral illness. Patient completed an outpatient course of Doxycycline prescribed by PCP as per records. Since that time has constant joint aches all over, stiffness especially in the hands and neck stiffness. Patient was seen at the Emergency Room yesterday for worsening neck and joint pain over the last few days. equiv Lyme test, abn CRP Patient subsequently sent home. Today the patient had sharp epigastric pain, intractable nausea and vomiting. Good bowel movement. Transient substernal pain, pleuritic w/sob. No fever, no chills. She denies alcohol intake. Physical Exam (per Admitting): VITAL SIGNS: Blood pressure is noted to be 110/60, pulse rate 63, RR 20, temperature 37 O2 sats 98 on room air. GENERAL: Noted to be uncomfortable, overweight. No respiratory distress. Looks older than stated age. SKIN: Normal color. HEENT: [place] palpebral conjunctivae. Dry mucosa. NECK: No JVD. Supple. CHEST: Clear to auscultation. No anterior chest wall tenderness. ABDOMEN: Epigastric tenderness. EXTREMITIES: No edema, no tenderness NEUROLOGIC: No gross focality. Hospital Course 1. Atypical chest pain/sob possibly from anxiety/nausea/vomiting sx serial CE, ekg and Echo unremarkable currently asymptomatic 2. hyperlipasemia 2 vomiting sx possible pancreatitis ct scan unremarkable;e abdominal pain resolved toleratying diet 3. joint aches/neck pain for months px attributes sx to Lyme dse sp tx ro rheumatoid arthritis. RA factor and HARLEY negative lyme titer unremarkable ID on board f/u with pcp 4. History of Lyme disease status post treatment equivocal rpt Lyme test from yesterday's ER visit d/w ID and no plan for treatment 5. HTN , stable 6. DM2, insulin-requiring suboptimal control as of recent outpx HgA1c. There was a Plan to d/c on insulin pens- may be can done with pcp 7. ongoing tobacco abuse Discharged home Total time spent on discharge = 35MINUTES This includes examination of the patient, discharge planning, medication reconciliation, and communication with other providers. Discharge Instructions Discharge Instructions Date of Service Jan 02, 2017. Admission Reason for Admission: Chest Pain, Pancreatitis Discharge Discharge Diagnosis / Problem: abdominal pain joint pains Discharge Goals Goal(s): Decrease discomfort, Improve function Activity Recommendations Activity Limitations: resume your previous activity . Instructions / Follow-Up Instructions / Follow-Up FOLLOWUP WITH FAMILY DOCTOR ON January AT 1PM Current Hospital Diet Patient's current hospital diet: Low Fiber Diet Discharge Diet Recommended Diet: AHA Diet (Heart Healthy), Diabetes Type 2 Diet Pending Studies Studies pending at discharge: no Laboratory Results Hemoglobin A1c Test 12/31/16 17:09 Range/Units Estimated Average Glucose 235 mg/dl Hemoglobin A1c 9.8 H 4.5-5.6 % Lipid Panel Test 01/01/17 05:59 Range/Units Triglycerides Level 402 H 0-150 mg/dl Cholesterol Level 191 0-200 mg/dl HDL Cholesterol 20 mg/dl Cholesterol/HDL Ratio 9.6 LDL Cholesterol, Calculated mg/dl Medical Emergencies . Who to Call and When: Medical Emergencies: If at any time you feel your situation is an emergency, please call 911 immediately. . Non-Emergent Contact Non-Emergency issues call your: Primary Care Provider . . "Provider Documentation" section prepared by Haresh Lockett. . VTE Core Measure Inpt VTE Proph given/why not?: Enoxaparin (Lovenox)SQ
[2017-06-15] MEDS ORDERED: TPRSR25 PO (12:03)
[2017-06-15] MEDS ORDERED: ASPEC81 PO (12:03)
[2017-06-15] MEDS ORDERED: PRT40 PO (12:03)
[2017-06-15] MEDS ORDERED: SIMV20TA5 PO (12:38)
[2017-07-29] MEDS ORDERED: POLY335019 PO (00:34)
[2017-07-29] MEDS ORDERED: LISI-461 PO (03:10)
[2017-07-29] MEDS ORDERED: PRM/3 PO (03:10)
[2017-07-29] MEDS ORDERED: QVRINH80 PO (03:13)
[2017-07-29] MEDS ORDERED: VNTHFA/IN INH (03:13)
[2017-07-29] MEDS ORDERED: ONDA8TAB6 PO (03:15)
[2017-07-29] MEDS ORDERED: SENN-63 PO (03:17)
[2017-07-29] MEDS ORDERED: ATV1 PO (03:41)
== END 2017-01-02 13:34 | disposition home or self-care (01) | DRG 440 ==
LOC: ENRESERVTM → ENRESERVDT → C.EDB 14:27 → C.MED 19:41
PROVIDERS: ADMIT Internal Medicine; ATTEND Internal Medicine
DX: K85.90 Acute pancreatitis without necrosis or infection, unspecified (principal); R07.89 Other chest pain; M06.9 Rheumatoid arthritis, unspecified; K21.9 Gastro-esophageal reflux disease without esophagitis; F17.210 Nicotine dependence, cigarettes, uncomplicated; E11.43 Type 2 diabetes mellitus with diabetic autonomic (poly)neuropathy; K31.84 Gastroparesis; E78.00 Pure hypercholesterolemia, unspecified; E78.5 Hyperlipidemia, unspecified; E11.22 Type 2 diabetes mellitus with diabetic chronic kidney disease; N18.9 Chronic kidney disease, unspecified; I12.9 Hypertensive chronic kidney disease with stage 1 through stage 4 chronic kidney disease, or unspecified chronic kidney disease; R10.13 Epigastric pain; R11.2 Nausea with vomiting, unspecified; F41.9 Anxiety disorder, unspecified; Z86.69 Personal history of other diseases of the nervous system and sense organs; Z86.19 Personal history of other infectious and parasitic diseases; Z79.899 Other long term (current) drug therapy; Z79.4 Long term (current) use of insulin; Z79.01 Long term (current) use of anticoagulants; Z79.51 Long term (current) use of inhaled steroids; Z79.1 Long term (current) use of non-steroidal anti-inflammatories (NSAID); Z79.891 Long term (current) use of opiate analgesic

== ENCOUNTER 2017-06-13 22:16 | Observation (INO) | payer OTHER ==
[~2017-06-13] VITALS: Ht 165.1 cm; Wt 81.8 kg
[~2017-06-13 22:16] MED LIST changes: +ATV1 PO; +LISI-461 PO; +ONDA8TAB6 PO; +POLY335019 PO; +PRM/3 PO; +QVRINH80 PO; +SENN-63 PO; +VNTHFA/IN INH
[2017-06-13] MEDS ORDERED: INSU100I23 SC (22:55)
[2017-06-13 22:57] LABS: HEMATOCRIT 41.4 % (37-47); MEAN CORPUSCULAR HEMOGLOBIN 29.3 pg (25-34); MEAN CORPUSCULAR HGB CONC 35.3 g/dl (32-36); MEAN PLATELET VOLUME 10.8 fL (7.4-10.4); PLATELET COUNT 155 K/uL (130-400); RED BLOOD COUNT 4.99 M/uL (4.2-5.4); WHITE BLOOD COUNT 8.42 K/uL (4.8-10.8)
[2017-06-13 23:06] LABS: INR 1.1 (0.9-1.1); PROTHROMBIN TIME (PATIENT) 11.6 SECONDS (9.0-12.0)
[2017-06-13 23:13] LABS: CALCIUM 9.2 mg/dl (8.5-10.1); CREATININE 0.6 mg/dl (0.60-1.20); POTASSIUM 3.4 mmol/L (3.5-5.1)
[2017-06-13 23:18] LABS: ALB/GLOB RATIO 1.1 (0.9-2); CKMB/CK RATIO 0.7 (0-3.0)
[2017-06-13] MEDS ORDERED: NITROGLYCERIN 0.4 MG SL PER TAB CHARGE SL STA (23:22)
--- NOTE | 2017-06-13 23:47 | EMERGENCY ROOM VISIT NOTE ---
History Report prepared by Charisse: Marilyn Kunz Under the Supervision of: Dr. Luz Avina D.O. First contact with patient: 23:01 Chief Complaint: CHEST PAIN Stated Complaint: CHEST PAIN Nursing Triage Summary: Patient reports chest pain since 1800 today. Describes chest pain as presure or feels like "something was sitting on my chest. " Left arm numbness and tingling in fingers. Left sided facial numbness. Reports Nausea and SOB and headache. Was given by EMS: 100mcg Fetanyl, 4MG Zofran, and 324mg Aspirin. History of Present Illness The patient is a 47 year old female who presents to the Emergency Room with complaints of an episode of chest pain starting five hours ago. The patient describes her pain as a heavy feeling. The patient states that she felt fine throughout the day and it started with vomiting. She reports that the chest pain shortly followed. She notes that the Zofran given in the ambulance helped her nausea. The patient complains of nausea, vomiting, left arm numbness, and tingling in left hand. The patient denies shortness of breath, a cardiac history , and ever having pains like this before. She notes that her mother and uncles from massive heart attacks in their early 50s. The patient notes that she had a stress test 5 years ago and that she gets her cholesterol checked regularly. She denies any abnormal cholesterol levels. Source of History: patient Onset: five hours ago Position: chest Quality: other (heavy) Timing: other (episode) Modifying Factors (Relieving): other (Zofran) Associated Symptoms: + nausea, + vomiting, + numbness, No SOB Note: The patient complains of tingling. Review of Systems See HPI for pertinent positives & negatives. A total of 10 systems reviewed and were otherwise negative. Past Medical & Surgical Medical Problems: (1) Abdominal pain (2) Allergic rhinitis (3) Anxiety (4) Asthma, mild intermittent (5) section (6) Chest pain (7) Degenerative cervical disc (8) DIAB MARGARITA WO COMPL, TYPE II OR UNSPEC TYPE, NOT UNCNTRLD (9) Diabetes (10) ESOPHAGEAL REFLUX (11) Gastroparesis due to DM (12) HTN (hypertension) (13) HYPERLIPIDEMIA NEC/NOS (14) Hypertension (15) Kidney disease (16) Lyme disease (17) MIGRAINE W/O AURA W/O INTRACT MGRN W/O STATUS MIGRAINOSUS (18) Obesity (BMI 30.0-34.9) (19) OVARIAN CYST NEC/NOS (20) Pancreatitis (21) Slow transit constipation (22) Tobacco use disorder (23) TOBACCO USE DISORDER (24) UTERINE LEIOMYOMA NOS Surgical Problems: (1) H/O esophagogastroduodenoscopy (2) H/O laparoscopy (3) H/O oophorectomy (4) H/O: (5) History of cholecystectomy (6) History of partial hysterectomy (7) History of tonsillectomy (8) S/P cholecystectomy Family History FH: cancer FHx: diabetes mellitus FHx: gallbladder disease FHx: heart disease FHx: hypertension FHx: lung disease FHx: seizures Heart disease Social History Smoking Status: Current Every Day Smoker Alcohol Use: none Drug Use: none Marital Status: Housing Status: lives with family Occupation Status: employed Current/Historical Medications Scheduled Beclomethasone Dip (Qvar), 2 PUFFS PO BID Citalopram (Citalopram Hydrobromide), 20 MG PO DAILY Estrogens, Conjugated (Premarin), 0.3 MG PO DAILY Insulin Aspart (Novolog Penfill), 15 UNIT SQ AC Insulin Glargine (Basaglar Kwikpen), 1 DOSE SC QPM Lisinopril (Lisinopril), 10 MG PO DAILY Lorazepam (Lorazepam), 1 MG PO HS Metoprolol Succinate (Metoprolol Succinate ER), 25 MG PO DAILY Omeprazole (Prilosec), 20 MG PO DAILY Sennosides (Senokot), 2 TAB PO BID Scheduled PRN Albuterol Hfa (Ventolin Hfa), 2 PUFFS INH Q4 PRN for SOB/Wheezing Ondansetron Hcl (Zofran), 8 MG PO Q6 PRN for Nausea or Vomiting Polyethylene Glycol 3350 (Miralax), 17 GM PO DAILY PRN for Constipation Allergies Coded Allergies: Sulfa Antibiotics (Unverified Allergy, Intermediate, RASH/SWELLS/HIVES, ) Cefuroxime (Verified Allergy, Mild, RASH, 06/13/17) BEE STING (Unverified Allergy, Unknown, swelling, 06/13/17) Nicotine (Verified Allergy, Unknown, RASH, 06/13/17) NICOTINE PATCH Physical Exam Vital Signs Date Time Temp Pulse Resp B/P (MAP) Pulse Ox O2 Delivery O2 Flow Rate FiO2 06/14/17 00:33 74 22 131/78 97 06/14/17 00:00 90 18 149/77 96 Room Air 06/13/17 23:45 90 18 135/78 97 Room Air 06/13/17 23:34 84 24 135/84 95 Room Air 06/13/17 23:28 71 20 155/99 94 Room Air 06/13/17 22:41 96 Room Air 06/13/17 22:24 36.7 66 16 143/84 97 Room Air 06/13/17 22:23 71 06/13/17 22:18 98 Room Air Physical Exam General: Smells of tobacco and tearful on exam. HEENT: Head - normocephalic and atraumatic Pupils are equal, round, and reactive to light. Extraocular eye muscles are intact, and sclera are anicteric. Nose - moist nasal mucosa without discharge. Mouth - moist buccal mucosa. Oropharynx is nonerythematous and there is no tonsillar exudate or edema noted. Neck: Supple; no JVD, nuchal rigidity, cervical lymphadenopathy, or auscultated bruits. Heart: Regular rate and rhythm. There is a normal S1 and S2 with no murmurs, clicks, or gallops appreciated. Lungs: Clear to auscultation bilaterally with no wheezes, rales, or rhonchi. Abdomen: Soft, completely nontender, nondistended, with good bowel sounds. There are no palpable pulsatile masses or hepatosplenomegaly. There is no guarding, rigidity, or rebound noted. Extremities: No evidence of cyanosis, clubbing, or edema. There are easily palpable peripheral pulses. Skin: warm and dry with good turgor and no rashes. Medical Decision & Procedures ER Provider Diagnostic Interpretation: Chest X-RAY: The results were interpreted by me. No pulmonary infiltrates. No cardiomegaly. Laboratory Results 06/13/17 21:45 Test 06/13/17 21:45 06/13/17 22:24 Red Blood Count 4.99 M/uL (4.2-5.4) Mean Corpuscular Volume 83.0 fL (80-100) Mean Corpuscular Hemoglobin 29.3 pg (25-34) Mean Corpuscular Hemoglobin Concent 35.3 g/dl (32-36) RDW Standard Deviation 41.2 fL (36.4-46.3) RDW Coefficient of Variation 13.8 % (11.5-14.5) Mean Platelet Volume 10.8 fL (7.4-10.4) Prothrombin Time 11.6 SECONDS (9.0-12.0) Prothromb Time International Ratio 1.1 (0.9-1.1) Activated Partial Thromboplast Time 27.1 SECONDS (21.0-31.0) Partial Thromboplastin Ratio 1.0 Total Bilirubin 0.5 mg/dl (0.2-1) Aspartate Amino Transf (AST/SGOT) 23 U/L (15-37) Alanine Aminotransferase (ALT/SGPT) 39 U/L (12-78) Alkaline Phosphatase 116 U/L (45-117) Total Protein 7.7 gm/dl (6.4-8.2) Albumin 4.0 gm/dl (3.4-5.0) Globulin 3.7 gm/dl (2.5-4.0) Albumin/Globulin Ratio 1.1 (0.9-2) Lipase 218 U/L (73-393) Bedside Troponin I < 0.030 ng/ml (0-0.045) Laboratory results per my review. Medications Administered Medications (Trade) Dose Ordered Sig/Terrance Route Start Time Stop Time Status Last Admin Dose Admin Nitroglycerin (Nitrostat Tab) 0.4 mg Q5M STAT SL 06/13/17 23:22 06/13/17 23:23 DC 06/13/17 23:28 0.4 MG Morphine Sulfate (MoRPHine SULFATE INJ) 4 mg NOW STAT IV 06/14/17 00:05 06/14/17 00:06 DC 06/14/17 00:11 4 MG Nitroglycerin (Nitroglycerin 2% Oint) 0.5 inch NOW ONCE EXT 06/14/17 00:45 06/14/17 00:46 DC 06/14/17 00:52 0.5 INCH Procedure 2322: Ordered Nitroglycerin 0.4 mg SL. 0005: Ordered Morphine Sulfate 4 mg IV. 0045: Ordered Nitroglycerin 0.5 inch EXT. ECG Indication: chest pain Rate (beats per minute): 65 Rhythm: normal sinus Findings: no acute ischemic change, no ectopy Comparison ECG Date: Repeat Change: Second: Normal sinus rhythm at a rate of 96. T wave inversions in leads V2, V3, and V4. Third: Sinus rhythm at a rate of 79. T wave inversions are deeper in V2, V3, and V4. ED Course 2316: Past medical records reviewed. The patient was evaluated in room C5. A complete history and physical exam was performed. Laboratory studies were drawn as above. A twelve-lead EKG was obtained as described above. The patient had a chest x-ray as described above. 2322: Ordered Nitroglycerin 0.4 mg SL. 0003: The patient got nitro paste and her pain improved, but has started to worsen. She now rates her pain as a 10/10 in severity. She feels short of breath. We are going to repeat her EKG. 0005: Ordered Morphine Sulfate 4 mg IV. 0013: I reevaluated the patient. We are going to get the patient some Morphine and repeat her EKG. 0045: Ordered Nitroglycerin 0.5 inch EXT. 0107: I reevaluated the patient and her chest pain has diminished. 0116: Discussed the patient's case with Dr. Jurado. The patient will be evaluated for further management. Medical Decision This is a 47-year-old female patient who presents to the emergency department complaining of chest pain. Differential diagnoses include GERD, pancreatitis, acute coronary disease, unstable angina, pneumonia, aortic dissection. LABS: Normal white count Stable H&H Normal renal function LFTs normal Sugar is slightly high at 167 Total CKA 246 CKMB 1.8 Troponin less than 0.030 Coags normal The patient has a strong family history of heart disease. She is a diabetic and she smokes. She presented to the emergency department with complaints of chest pain. While here in the emergency department, her chest pain worsened and her EKG had some ischemic changes. She had received aspirin in the ambulance. Pain was controlled with nitroglycerin glycerin morphine. The [facility]ist service will evaluate her for further care. Consults Time Called: 109 Consulting Physician: Dr. Jurado Returned Call: 115 Discussed the patient's case with Dr. Jurado. The patient will be evaluated for further management. Impression Primary Impression: Substernal chest pain Additional Impression: Acute electrocardiogram changes Scribe Attestation The scribe's documentation has been prepared under my direction and personally reviewed by me in its entirety. I confirm that the note above accurately reflects all work, treatment, procedures, and medical decision making performed by me. Departure Information Dispostion Being Evaluated By Hospitalist Referrals Allyson Dent M.D. (PCP) Patient Instructions My [facility] Problem Qualifiers
[2017-06-14] MEDS ORDERED: MoRPHine SULFATE 4 MG/ML 1 ML CARP\\VIAL IV STA (00:05)
[2017-06-14] MEDS ORDERED: NITROGLYCERIN OINT 2% 1GM PACKET EXT ONE (00:45)
[2017-06-14] MEDS ORDERED: POTASSIUM CHLORIDE 20 MEQ TABCR PO STA (01:53)
[2017-06-14] MEDS ORDERED: GLUCOSE 40% GEL 15 GM TUBE PO PRN (02:00)
[2017-06-14] MEDS ORDERED: ACETAMINOPHEN 325 MG TAB PO PRN (02:00)
[2017-06-14] MEDS ORDERED: DEXTROSE 50% 50 ML SYR IV PRN (02:00)
[2017-06-14] MEDS ORDERED: ALBUTEROL HFA 8 GM INHALER INH PRN (02:00)
[2017-06-14] MEDS ORDERED: GLUCOSE 10 TABS/TUBE PO PRN (02:00)
[2017-06-14] MEDS ORDERED: ONDANSETRON INJ 2 MG/ML 2 ML VIAL IV PRN (02:00)
[2017-06-14] MEDS ORDERED: GLUCAGON FOR INJ 1 MG VIAL SQ PRN (02:00)
[2017-06-14] MEDS ORDERED: POLYETHYLENE (MIRALAX) 17 GM PACK PO PRN ×2 (02:00)
[2017-06-14] MEDS ORDERED: ATORVASTATIN 40 MG TAB PO STA (02:21)
--- NOTE | 2017-06-14 02:25 | History and Physical ---
History & Physical Date & Time of Service: Jun 14, 2017 at 02:02 Chief Complaint: Chest Pain Primary Care Physician: Allyson Dent M.D. History of Present Illness Source: patient, clinic records, hospital records 47 yo diabetic smoker with HTN and a significant family history of early CAD presents with chest pain that began today around 4:30pm. She states the pressure is constant and still there and feels like someone is sitting on her chest. She has associated symptoms of SOB, lightheadedness, nausea and vomiting , and diaphoresis. The pain moved into her L arm, traveled down it and was associated with numbness and tingling. She denies pain like this in the past but has had a recent stress test in 2012 for further evaluation of a mitral valve disorder. She denies any issues with SU, SOB or chest pain prior to today and is otherwise asymptomatic, denying GI bleeding, abdominal pain, headaches, fevers or chills. In the ER and EKG revealed SR with TWI in the anterior leads but no ST deviations. She received ASA 325mg, nitro and morphine with only some relief. She does have TTP of her peristernal area and states this recreates the pressure feeling. CXR was within normal limits and initial cardiac enzymes were negative. Risk factors include active smoking, HTN , DMII that is uncontrolled and her family history. Specifically, she reports that her mother had an AR at 52 yo, her mother's two brothers had MIs in their 50s and her maternal grandfather had an AR in his 40s. Past Medical/Surgical History Medical Problems: (1) Allergic rhinitis Status: Chronic (2) Anxiety Status: Chronic (3) Asthma, mild intermittent Status: Chronic (4) Degenerative cervical disc Status: Chronic (5) DIAB MARGARITA WO COMPL, TYPE II OR UNSPEC TYPE, NOT UNCNTRLD Status: Chronic (6) ESOPHAGEAL REFLUX Status: Chronic (7) Gastroparesis due to DM Status: Chronic (8) HTN (hypertension) Status: Chronic (9) HYPERLIPIDEMIA NEC/NOS Status: Chronic (10) Kidney disease Status: Chronic (11) MIGRAINE W/O AURA W/O INTRACT MGRN W/O STATUS MIGRAINOSUS Status: Chronic (12) Obesity (BMI 30.0-34.9) Status: Chronic (13) OVARIAN CYST NEC/NOS Status: Chronic (14) Slow transit constipation Status: Chronic (15) Tobacco use disorder Status: Chronic (16) TOBACCO USE DISORDER Status: Chronic (17) UTERINE LEIOMYOMA NOS Status: Chronic Surgical Problems: (1) H/O esophagogastroduodenoscopy Permanent Comment: 2016 - normal Status: Chronic (2) H/O laparoscopy Permanent Comment: lysis of adhesions Status: Chronic (3) H/O oophorectomy Status: Chronic (4) H/O: Status: Chronic (5) History of partial hysterectomy Status: Chronic (6) History of tonsillectomy Status: Chronic (7) S/P cholecystectomy Status: Chronic Family History FH: cancer FHx: diabetes mellitus FHx: gallbladder disease FHx: heart disease FHx: hypertension FHx: lung disease FHx: seizures Heart disease Ischemic heart disease MOTHER (52) GRANDFATHER (40s) Uncle (50) Uncle (50) Social History Smoking Status: Current Every Day Smoker Smokeless Tobacco Use: No Alcohol Use: none Drug Use: none Marital Status: Housing status: lives with significant other Occupational Status: employed Immunizations History of Influenza Vaccine: Yes Influenza Vaccine Date: Jun 25, 2016 History of Tetanus Vaccine?: Yes Tetanus Immunization Date: Sep 28, 2009 History of Pneumococcal: Yes Pneumococcal Date: Aug 14, 2011 History of Hepatitis B Vaccine: Yes Hepatitis Immunization Date: January 26, 2014 Multi-Drug Resistant Organisms History of MDRO: No Allergies Coded Allergies: Sulfa Antibiotics (Unverified Allergy, Intermediate, RASH/SWELLS/HIVES, ) Cefuroxime (Verified Allergy, Mild, RASH, 06/13/17) BEE STING (Unverified Allergy, Unknown, swelling, 06/13/17) Nicotine (Verified Allergy, Unknown, RASH, 06/13/17) NICOTINE PATCH Home Medications Scheduled Beclomethasone Dip (Qvar), 2 PUFFS PO BID Citalopram (Citalopram Hydrobromide), 20 MG PO DAILY Estrogens, Conjugated (Premarin), 0.3 MG PO DAILY Insulin Aspart (Novolog Penfill), 15 UNIT SQ AC Insulin Glargine (Basaglar Kwikpen), 1 DOSE SC QPM Lisinopril (Lisinopril), 10 MG PO DAILY Lorazepam (Lorazepam), 1 MG PO HS Metoprolol Succinate (Metoprolol Succinate ER), 25 MG PO DAILY Omeprazole (Prilosec), 20 MG PO DAILY Sennosides (Senokot), 2 TAB PO BID Scheduled PRN Albuterol Hfa (Ventolin Hfa), 2 PUFFS INH Q4 PRN for SOB/Wheezing Ondansetron Hcl (Zofran), 8 MG PO Q6 PRN for Nausea or Vomiting Polyethylene Glycol 3350 (Miralax), 17 GM PO DAILY PRN for Constipation Review of Systems At least ten systems were reviewed and negative except as indicated in HPI above. Physical Exam Vital Signs Date Time Temp Pulse Resp B/P (MAP) Pulse Ox O2 Delivery O2 Flow Rate FiO2 06/14/17 00:33 74 22 131/78 97 06/14/17 00:00 90 18 149/77 96 Room Air 06/13/17 23:45 90 18 135/78 97 Room Air 06/13/17 23:34 84 24 135/84 95 Room Air 06/13/17 23:28 71 20 155/99 94 Room Air 06/13/17 22:41 96 Room Air 06/13/17 22:24 36.7 66 16 143/84 97 Room Air 06/13/17 22:23 71 06/13/17 22:18 98 Room Air General Appearance: WD/WN, no apparent distress Head: normocephalic, atraumatic Eyes: normal inspection, PERRL, sclerae normal ENT: hearing grossly normal, pharynx normal Neck: supple, no JVD, trachea midline Respiratory/Chest: lungs clear, normal breath sounds, no respiratory distress, no accessory muscle use, + pertinent finding (TTP of peristernal area) Cardiovascular: regular rate, rhythm, no edema, no gallop, no JVD, no murmur, normal peripheral pulses Abdomen/GI: normal bowel sounds, non tender, soft Back: normal inspection Extremities/Musculoskelatal: normal inspection, no pedal edema Neurologic/Psych: no motor/sensory deficits, alert, normal mood/affect, oriented x 3 Skin: normal color, warm/dry, no rash Diagnostics Laboratory Results 06/13/17 21:45 06/13/17 21:45 Test 06/13/17 21:45 06/13/17 22:24 Red Blood Count 4.99 M/uL (4.2-5.4) Mean Corpuscular Volume 83.0 fL (80-100) Mean Corpuscular Hemoglobin 29.3 pg (25-34) Mean Corpuscular Hemoglobin Concent 35.3 g/dl (32-36) RDW Standard Deviation 41.2 fL (36.4-46.3) RDW Coefficient of Variation 13.8 % (11.5-14.5) Mean Platelet Volume 10.8 fL (7.4-10.4) Prothrombin Time 11.6 SECONDS (9.0-12.0) Prothromb Time International Ratio 1.1 (0.9-1.1) Activated Partial Thromboplast Time 27.1 SECONDS (21.0-31.0) Partial Thromboplastin Ratio 1.0 Anion Gap 5.0 mmol/L (3-11) Est Creatinine Clear Calc Drug Dose 130.8 ml/min Estimated GFR () 127.6 Estimated GFR (Non- 110.1 BUN/Creatinine Ratio 6.0 (10-20) Calcium Level 9.2 mg/dl (8.5-10.1) Total Bilirubin 0.5 mg/dl (0.2-1) Aspartate Amino Transf (AST/SGOT) 23 U/L (15-37) Alanine Aminotransferase (ALT/SGPT) 39 U/L (12-78) Alkaline Phosphatase 116 U/L (45-117) Total Creatine Kinase 246 U/L (26-192) Creatine Kinase MB 1.8 ng/ml (0.5-3.6) Creatine Kinase MB Ratio 0.7 (0-3.0) Total Protein 7.7 gm/dl (6.4-8.2) Albumin 4.0 gm/dl (3.4-5.0) Globulin 3.7 gm/dl (2.5-4.0) Albumin/Globulin Ratio 1.1 (0.9-2) Lipase 218 U/L (73-393) Bedside Troponin I < 0.030 ng/ml (0-0.045) Results Past 24 Hours Test 06/13/17 21:45 06/13/17 22:24 Range/Units White Blood Count 8.42 4.8-10.8 K/uL Red Blood Count 4.99 4.2-5.4 M/uL Hemoglobin 14.6 12.0-16.0 g/dL Hematocrit 41.4 37-47 % Mean Corpuscular Volume 83.0 80-100 fL Mean Corpuscular Hemoglobin 29.3 25-34 pg Mean Corpuscular Hemoglobin Concent 35.3 32-36 g/dl RDW Standard Deviation 41.2 36.4-46.3 fL RDW Coefficient of Variation 13.8 11.5-14.5 % Platelet Count 155 130-400 K/uL Mean Platelet Volume 10.8 7.4-10.4 fL Prothrombin Time 11.6 9.0-12.0 SECONDS Prothromb Time International Ratio 1.1 0.9-1.1 Activated Partial Thromboplast Time 27.1 21.0-31.0 SECONDS Partial Thromboplastin Ratio 1.0 Sodium Level 135 136-145 mmol/L Potassium Level 3.4 3.5-5.1 mmol/L Chloride Level 100 98-107 mmol/L Carbon Dioxide Level 30 21-32 mmol/L Anion Gap 5.0 3-11 mmol/L Blood Urea Nitrogen 4 7-18 mg/dl Creatinine 0.60 0.60-1.20 mg/dl Est Creatinine Clear Calc Drug Dose 130.8 ml/min Estimated GFR () 127.6 Estimated GFR (Non- 110.1 BUN/Creatinine Ratio 6.0 10-20 Random Glucose 167 70-99 mg/dl Calcium Level 9.2 8.5-10.1 mg/dl Total Bilirubin 0.5 0.2-1 mg/dl Aspartate Amino Transf (AST/SGOT) 23 15-37 U/L Alanine Aminotransferase (ALT/SGPT) 39 12-78 U/L Alkaline Phosphatase 116 45-117 U/L Total Creatine Kinase 246 26-192 U/L Creatine Kinase MB 1.8 0.5-3.6 ng/ml Creatine Kinase MB Ratio 0.7 0-3.0 Total Protein 7.7 6.4-8.2 gm/dl Albumin 4.0 3.4-5.0 gm/dl Globulin 3.7 2.5-4.0 gm/dl Albumin/Globulin Ratio 1.1 0.9-2 Lipase 218 73-393 U/L Bedside Troponin I < 0.030 0-0.045 ng/ml CXR normal (wet read) EKG SR 79 with TWI in V1-3 Impression Assessment and Plan 47 yo diabetic female smoker with a significant history of early CAD in her family presents with chest pressure that began today. 1. Chest pain-etiologies include but not limited to ACS and MSK pain. She has multiple risk factors for CAD with last stress test in 2012 that was normal. Classic symptoms are associated with her pressure which was only make somewhat better with the nitro and morphine. TRS is 1 so do not think she would derive benefit from heparin drip at this time unless ST changes and/or troponin elevation. Gave ASA, Lipitor 80 and continued nitro paste, morphine PRN for symptom control. If continues to pain may consider increasing BB as heart rate allows. Consult Cards for risk stratification later today or tomorrow and to revisit her h/o mitral valve disorder to see if that may be playing a role in symptoms. 2. DMII-on insulin at home, uncontrolled, A1C pending. FSG controlled. Cont Lantus and ISS with carb coverage for goal range 140-180. 3. HTN-controlled, cont home regimen including Toprol XL, lisinopril 4. Anxiety-cont home regimen of Celexa and Ativan at night. DVT proph-Lovenox Full Code [facility]po[facility] Care Telemetry Resuscitation Status FULL RESUSCITATION VTE Prophylaxis VTE Risk Assessment Done? Y/N: Yes Risk Level: Moderate Given or contraindicated: Enoxaparin (Lovenox)SQ
[2017-06-14] MEDS: MoRPHine SULFATE 2 MG/ML CARP IV PRN ×4 (02:47→20:08)
[2017-06-14 02:50] VITALS: BP 103/71; PULSE 64; TEMP 36.7; O2SAT 95; BMI 29.8
[2017-06-14 03:31] LABS: BLOOD UREA NITROGEN 4 mg/dl (7-18); BUN/CREATININE RATIO 7.4 (10-20); CALCIUM 8.8 mg/dl (8.5-10.1); CARBON DIOXIDE 29 mmol/L (21-32); CHLORIDE 105 mmol/L (98-107); GLUCOSE 141 mg/dl (70-99); MAGNESIUM 1.5 mg/dl (1.8-2.4); POTASSIUM 3.6 mmol/L (3.5-5.1); SODIUM 140 mmol/L (136-145)
[2017-06-14 03:36] LABS: CHOLESTEROL 185 mg/dl (0-200); CHOLESTEROL/HDL RATIO 8.4; CKMB/CK RATIO 0.7 (0-3.0); HDL CHOLESTEROL 22 mg/dl; LDL CHOLESTEROL CALCULATED 125 mg/dl; TRIGLYCERIDES 191 mg/dl (0-150); VERY LOW DENSITY LIPOPROT CALC 38 mg/dl
[2017-06-14] MEDS ORDERED: INFLUENZA VIRUS QUAD VACCINE 0.5 ML SYR IM. ONE (04:15)
[2017-06-14] MEDS ORDERED: IV FLUIDS COMPLETED PRN (04:15)
[2017-06-14] MEDS ORDERED: INFLUENZA ADMINISTRATION CHARGE ONE (04:15)
[2017-06-14 04:30] VITALS: BP 98/66; PULSE 74; O2SAT 95
[2017-06-14] MEDS ORDERED: MAG SULFATE 50% INJ 4 GM in SODIUM CHLORIDE 0.9% 500ML 500 ML IV SCH (04:30)
[2017-06-14] MEDS: NITROGLYCERIN OINT 2% 1GM PACKET EXT SCH ×4 (05:24→23:57)
--- NOTE | 2017-06-14 06:55 | DIAGNOSTIC IMAGING REPORT ---
CHEST ONE VIEW PORTABLE CLINICAL HISTORY: Chest pain. COMPARISON STUDY: Chest radiograph December 31, 2016. FINDINGS: Lung volumes are normal. No pneumothorax or pleural effusion is present. There is no consolidation to suggest pneumonia. Cardiac size is normal. Left hilar prominence is noted. IMPRESSION: 1. No acute cardiopulmonary findings. 2. Left hilar prominence. This may reflect mild lymphadenopathy. Electronically signed by: Dustin Sidhu M.D. 06/14/2017 6:54 AM Dictated Date/Time: 06/14/2017 6:48 AM
[2017-06-14] MEDS: LISINOPRIL 10 MG TAB PO SCH (07:39)
[2017-06-14] MEDS: ASPIRIN 81 MG ECTAB PO SCH (07:40)
[2017-06-14] MEDS: CITALOPRAM 20 MG TAB PO SCH (07:40)
[2017-06-14] MEDS: PANTOprazole SOD 40 MG TAB PO SCH (07:40)
[2017-06-14] MEDS: ESTROGENS, CONJUGATED 0.3 MG TAB PO SCH (07:40)
[2017-06-14] MEDS: SENNA 8.6 MG TAB PO SCH ×2 (07:40→21:02)
[2017-06-14] MEDS: INSULIN ASPART 100 UNITS/ML 3 ML PEN SC SCH ×4 (07:42→21:00)
[2017-06-14] MEDS: INSULIN GLARGINE SOLOSTAR 100 UNITS/ML 3 ML PEN SC SCH ×2 (07:43→21:10)
[2017-06-14] MEDS: BECLOMETHASONE DIP HFA 80 MCG 8.7G INH INH SCH ×2 (07:43→21:03)
[2017-06-14 08:27] VITALS: BP 96/54; PULSE 77; TEMP 36.7; O2SAT 94
[2017-06-14] MEDS ORDERED: ENOXAPARIN 40 MG/0.4 ML SYR SC SCH (09:00)
[2017-06-14] MEDS ORDERED: METOPROLOL SUCC 25MG EXT REL TAB PO SCH (09:00)
--- NOTE | 2017-06-14 10:04 | Cardiology Consultation ---
Cardiology Consultation Date of Consultation: Jun 14, 2017 Requesting Physician: Adrien Attending Business Administration Instructor: Rusty (Kiko Marino PA-C) History of Present Illness Ms. Valiente is a 47 year old female who is being seen in cardiology consultation as requested by Dr. Jurado. Reason(s) for consultation include chest pain, multiple cardiac risk factors. Patient notes "getting real sick" last night around 16:30 while sitting on the cough. She notes developing nausea and vomiting prior to her evening meal prior to developing chest discomfort. She describes the chest discomfort as "it felt like something was sitting on my chest." After developing the chest discomfort she then experienced numbness and tingling down the left arm and shortness of breath. Notes symptoms seemed to be worse when attempting to lay flat. She notes taking a lorazepam without improvement. EMS was then summoned. She notes receiving four baby aspirins followed by Fentynl and Zofran without improvement. She then received three nitroglycerin. After the 3rd nitroglycerin she developed a stabbing shooting pain across the top of the chest. She notes has a heavy feeling on the chest with ongoing numbness down the left arm. Since the onset of symptoms around 16:30 on 06/13/2017 her symptoms have waxed and waned but have not resolved. She does have some tenderness with palpation of the chest though this is different than the discomfort which brought her to the hospital. She notes being under a significant amount of stress, leaving her and currently staying with her sister. Denies exertional chest pain. No change in exercise tolerance. Stable exertional dyspnea. No recent change in her medications. Denies recent travel, injury, surgery, or illnesses. Last hospitalization was to [facility] in December 2016. EKG on presentation revealed normal sinus rhythm at 65 bpm with anterior T wave inversions. A 2nd EKG at 00:01:21 reveals sinus at 96 bpm with more pronounced T wave changes anteriorly. A 3rd EKG timed 00:33:25 revealed normal sinus rhythm at 79 bpm with stable T wave abnormality anteriorly. Cardiac enzymes are negative x 1. TTE is pending. Chest x-ray on admission showed no acute cardiopulmonary processes. (Kiko Marino PA-C) Past Medical/Surgical History Problem List: Past Medical and Surgical History: Type II diabetes mellitus with gastroparesis Stage I chronic kidney disease Myxomatous mitral valve disorder. Hypertension Dyslipidemia Asthma Chronic tobacco abuse Lymphadenopathy Sleep study in 2009 with nocturna hypoxemia, no sleep apnea Anemia Cervical and thoracic disc disease Esophageal reflux History of pancreatitis Uterine Leiomyoma Lyme disease status post treatment. Hepatic steatosis. Migraine without aura Anxiety. Panic disorder Status post laparoscopic cholecystectomy, 09/05/13 05/1990 and 10/1992. Partial hysterectomy T/A as a child. (Kiko Marino PA-C) Family History Family History: Father: Unknown. Mother: with an MO at 55. Maternal Grandfather: MO. Maternal Uncles (2), MO. (Kiko Marino PA-C) FH: cancer FHx: diabetes mellitus FHx: gallbladder disease FHx: heart disease FHx: hypertension FHx: lung disease FHx: seizures Heart disease Ischemic heart disease MOTHER (52) GRANDFATHER (40s) Uncle (50) Uncle (50) (Jorge Ojeda M.D.) Social History Social History: Longstanding tobacco abuse. She started smoking in her teenager years. Currently smoking 1/2 ppd. No alcohol. Denies illegal drug use. Currently , living with her sister. Two grown children. No, Advance Directive brochure given to patient at prior appointment. (Kiko Marino PA-C) Review Of Systems General: No fever, chills. Head: Headaches. Cardiovascular: See above. Pulmonary: See above. History of pleurisy. No hemoptysis. Gastrointestinal: Constipation. N/V. No diarrhea. No melena or hematochezia. Skin: No rash. Musculoskeletal: Diffuse joint pain. Neurological: Denies history of TIA or CVA. ? Prior seizure. Complete review of systems is as stated above, negative, or noncontributory. (Kiko Marino PA-C) Allergies Coded Allergies: Sulfa Antibiotics (Unverified Allergy, Intermediate, RASH/SWELLS/HIVES, ) Cefuroxime (Verified Allergy, Mild, RASH, 06/13/17) BEE STING (Unverified Allergy, Unknown, swelling, 06/13/17) Nicotine (Verified Allergy, Unknown, RASH, 06/13/17) NICOTINE PATCH Medications Reported Home Medications Medications Dose Route/Sig Max Daily Dose Days Date Category Dose Instructions Basaglar Kwikpen (Insulin Glargine) 100 Unit/Ml Inj 1 Dose SC QPM 06/13/17 Reported SLIDING SCALE BSG <200 TAKE 10 UNITS BSG >200 TAKE 20 UNITS Novolog Penfill (Insulin Aspart) 100 Unit/Ml Inj 15 Unit SQ AC 12/30/16 Reported SLIDING SCALE COVERAGE Senokot (Sennosides) 8.6 Mg Tab 2 Tab PO BID 12/30/16 Reported Zofran (Ondansetron HCl) 8 Mg Tab 8 Mg PO Q6 PRN 12/30/16 Reported Qvar (Beclomethasone Dip) 80 Mcg/Act Aer 2 Puffs PO BID 12/30/16 Reported Ventolin Hfa (Albuterol) 200 Puffs/72583 Mcg Aers 2 Puffs INH Q4 PRN 12/30/16 Reported Premarin (Estrogens, Conjugated) 0.3 Mg Tab 0.3 Mg PO DAILY 12/30/16 Reported Metoprolol Succinate ER (Metoprolol Succinate) 25 Mg Tabcr 25 Mg PO DAILY 12/30/16 Reported Lisinopril 10 Mg Tab 10 Mg PO DAILY 12/30/16 Reported Citalopram Hydrobromide (Citalopram) 20 Mg Tab 20 Mg PO DAILY 04/06/16 Reported Lorazepam 1 Mg Tab 1 Mg PO HS 04/06/16 Reported Prilosec (Omeprazole) 20 Mg Capcr 20 Mg PO DAILY 04/06/16 Reported Miralax (Polyethylene Glycol 3350) 1 Pow Pow 17 Gm PO DAILY PRN 01/05/16 Reported (Kiko Marino PA-C) Physical Exam Vital Signs (Last 8hrs): Last 8 Hrs Date Time Temp Pulse Resp B/P (MAP) Pulse Ox O2 Delivery O2 Flow Rate FiO2 06/14/17 08:27 36.7 77 16 96/54 (68) 94 Room Air 06/14/17 08:00 Room Air 06/14/17 04:30 95 Room Air 06/14/17 04:30 74 16 98/66 (77) 06/14/17 02:50 36.7 64 16 103/71 95 Room Air 06/14/17 01:58 66 20 118/73 96 Room Air 06/14/17 01:27 68 20 122/70 95 Room Air General Appearance: Alert and Oriented x3. NAD. HEENT: Normocephalic Atraumatic. PER, EOMI, conjunctiva and sclera clear Neck: Right carotid bruit. No No JVD. No HJD. Respiratory: Diminished but clear. No w/r/r. Cardiovascular: Reg rate and rhythm. S1 and S2 noted. Soft systolic murmur. No rubs. No gallop. PMI non displace. Abdomen: Normal bowel sounds, soft nontender. no abdominal bruits. Extremities: No edema, no clubbing or cyanosis. Distal pulses 2/4 bilaterally. Neuro: No focal deficits. Psychiatric: Normal affect. (Kiko Marino PA-C) Data Last 24 Hours Test 06/13/17 21:45 06/13/17 22:24 06/14/17 03:06 06/14/17 09:00 White Blood Count 8.42 K/uL Red Blood Count 4.99 M/uL Hemoglobin 14.6 g/dL Hematocrit 41.4 % Mean Corpuscular Volume 83.0 fL Mean Corpuscular Hemoglobin 29.3 pg Mean Corpuscular Hemoglobin Concent 35.3 g/dl RDW Standard Deviation 41.2 fL RDW Coefficient of Variation 13.8 % Platelet Count 155 K/uL Mean Platelet Volume 10.8 fL Prothrombin Time 11.6 SECONDS Prothromb Time International Ratio 1.1 Activated Partial Thromboplast Time 27.1 SECONDS Partial Thromboplastin Ratio 1.0 Sodium Level 135 mmol/L 140 mmol/L Potassium Level 3.4 mmol/L 3.6 mmol/L Chloride Level 100 mmol/L 105 mmol/L Carbon Dioxide Level 30 mmol/L 29 mmol/L Anion Gap 5.0 mmol/L 6.0 mmol/L Blood Urea Nitrogen 4 mg/dl 4 mg/dl Creatinine 0.60 mg/dl 0.50 mg/dl Est Creatinine Clear Calc Drug Dose 130.8 ml/min 149.5 ml/min Estimated GFR () 127.6 135.5 Estimated GFR (Non- 110.1 116.9 BUN/Creatinine Ratio 6.0 7.4 Random Glucose 167 mg/dl 141 mg/dl Calcium Level 9.2 mg/dl 8.8 mg/dl Total Bilirubin 0.5 mg/dl Aspartate Amino Transf (AST/SGOT) 23 U/L Alanine Aminotransferase (ALT/SGPT) 39 U/L Alkaline Phosphatase 116 U/L Total Creatine Kinase 246 U/L 201 U/L Creatine Kinase MB 1.8 ng/ml 1.4 ng/ml Creatine Kinase MB Ratio 0.7 0.7 Total Protein 7.7 gm/dl Albumin 4.0 gm/dl Globulin 3.7 gm/dl Albumin/Globulin Ratio 1.1 Lipase 218 U/L Bedside Troponin I < 0.030 ng/ml Estimated Average Glucose 246 mg/dl Hemoglobin A1c 10.2 % Magnesium Level 1.5 mg/dl Troponin I < 0.015 ng/ml Triglycerides Level 191 mg/dl Cholesterol Level 185 mg/dl HDL Cholesterol 22 mg/dl LDL Cholesterol, Calculated 125 mg/dl VLDL Cholesterol, Calculated 38 mg/dl Cholesterol/HDL Ratio 8.4 January 01, 2017 TTE Interpretation Summary ([facility], Dr. Can): The left ventricle is normal in size. Left ventricular systolic function is normal. Ejection Fraction = 55-60%. The right ventricular systolic function is normal. The left atrial size is normal. Right atrial size is normal. No significant valvular pathology. Telemetry reviewed: Sinus with rare PVC's in singles. (Kiko Marino PA-C) Assessment & Plan Complex 47 year old female admitted with atypical chest discomfort. Patient with multiple cardiac risk factors including hypertension, dyslipidemia, type II diabetes mellitus, chronic tobacco abuse, obesity, and family history. EKG's with what appears to be chronic T wave abnormality anteriorly. Cardiac enzymes negative x 1 thus far. RECOMMENDATIONS/PLAN: Serial cardiac enzymes Resting echocardiography Exercise stress echocardiography if the above are negative. Aggressive risk factor and lifestyle modification. Risks and benefits of ASA and statin therapy discussed. Tobacco cessation urged. Note: Patient also prescribed Premarin. HgA1c 10.2% this admission. (Kiko Marino PA-C) Patient seen and examined. Stress test performed without ischemia to 9:30 on Bob protocol, 10.5 mets at blunted peak heart rate IMP Non cardiac chest pain in patient with multiple risk factors Rec: Reduce toprol to 12.5 mg Will arrange out patient follow (Jorge Ojeda M.D.)
[2017-06-14 10:35] LABS: CKMB/CK RATIO 0.8 (0-3.0)
[2017-06-14 12:49] VITALS: BP 87/51; PULSE 69; TEMP 36.7; O2SAT 94
[2017-06-14 14:41] VITALS: Ht 165.1 cm; Wt 81.8 kg
--- NOTE | 2017-06-14 16:20 | EXERCISE STRESS ECHO ---
*NOTICE TO RECEIVING REPUBLICAN AGENCY This information is strictly Confidential and protected under [place] law. [place] law prohibits you from making any further disclosure of this information unless further disclosure is expressly permitted by the written consent of the person to whom it pertains or is authorized by law. A general authorization for the release of medical or other information is not sufficient for this purpose. Hospital accepts no responsibility if the information is made available to any other person, INCLUDING THE PATIENT. Interpretation Summary * Name: HIEN BECKHAM Study Date: 06/14/2017 02:11 PM BP: 91/58 mmHg * Patient Location: .2E\S\E211\S\1 HR: 63 * : 1970 (M/d/yyyy) Gender: Female Height: 65 in * Age: 47 yrs Ethnicity: [place] Weight: 178 lb * Ordering Physician: Kiko Marino * Referring Physician: Self, Referred * Performed By: Noemi Rodriguez RDCS * * Reason For Study: CHEST PAIN * BSA: 1.9 m2 * There is no inducible ischemia noted at peak stress. * _ workload achieved. * -- Conclusions -- * The heart rate response was blunted due to medications achieving peak heart rate of 122 bpm. * Maximum blood pressure was '156/57' * Stress ECG: No ST changes. No arrhythmias. * Resting wall motion: Normal. Stress wall motion: Appropriate increase in Left ventricular systolic function and decrease in cavity size. No stress induced segmental wall motion abnormalities. Procedure Details * ECHOEX, CPT #62099 Left Ventricle * The left ventricle is normal in size. * There is mild concentric left ventricular hypertrophy. * Ejection Fraction = 55-60%. * Left ventricular systolic function is normal. * The left ventricular ejection fraction increases normally with stress. The left ventricular end-systolic cavity size reduces post-stress (normal response). The left ventricular wall motion with stress is normal. * Resting wall motion: Normal. Stress wall motion: Appropriate increase in Left ventricular systolic function and decrease in cavity size. No stress induced segmental wall motion abnormalities. Right Ventricle * The right ventricle is normal in size and function. Atria * The left atrial size is normal. * Right atrial size is normal. * No ASD detected; PFO is not assessed. Mitral Valve * There is mild focal thickening of the anterior mitral leaflet * There is no mitral valve stenosis. * Significant mitral regurgitation is absent. Tricuspid Valve * The tricuspid valve is normal. * There is no tricuspid stenosis. * Significant tricuspid regurgitation is absent. Aortic Valve * The aortic valve is trileaflet. * Aortic stenosis is absent. * There is no significant aortic regurgitation. Pulmonic Valve * The pulmonary valve is not well seen, but the Doppler examination is normal without significant regurgitation or stenosis. Great Vessels * The aortic root and proximal ascending aorta are normal sized. Pericardium * There is no pericardial effusion. Stress Parameters * Normal baseline electrocardiogram. * Stress ECG: No ST changes. No arrhythmias. * The stress portion of this study was personally supervised by the undersigned interpreting physician. * Rest heart rate was '63' BPM. * Rest blood pressure was '91/58' * Maximum heart rate achieved was 123 bpm. * Maximum heart rate was 70 % of maximum age-predicted heart rate. * Maximum blood pressure was '156/57' * Total exercise time was '9:30' * Maximum exercise MET level achieved was '10.90' METS * Maximum treadmill speed was '4.20' miles per hour. * Maximum treadmill elevation was '16.00'% grade. * Exercise was terminated due to 'FATIGUE' * The heart rate response was blunted due to medications achieving peak heart rate of 122 bpm. MMode 2D Measurements and Calculations IVSd 0.89 cm IVSs 1.8 cm LVIDd 5.0 cm LVIDs 3.2 cm LVPWd 1.2 cm LVPWs 1.2 cm IVS/LVPW 0.75 FS 37.3 % EDV(Teich) 120.1 ml ESV(Teich) 39.6 ml EF(Teich) 67.0 % EDV(cubed) 127.6 ml ESV(cubed) 31.4 ml EF(cubed) 75.4 % % IVS thick 97.8 % % LVPW thick 5.0 % LV mass(C)d 193.7 grams LV mass(C)dI 102.9 grams/m\S\2 LV mass(C)s 169.2 grams LV mass(C)sI 89.9 grams/m\S\2 SV(Teich) 80.5 ml SI(Teich) 42.8 ml/m\S\2 SV(cubed) 96.2 ml SI(cubed) 51.1 ml/m\S\2 LVAd ap4 29.8 cm\S\2 LVLd ap4 8.3 cm EDV(MOD-sp4) 92.1 ml EDV(sp4-el) 90.7 ml LVAs ap4 17.8 cm\S\2 LVLs ap4 7.3 cm ESV(MOD-sp4) 42.7 ml ESV(sp4-el) 37.0 ml EF(MOD-sp4) 53.6 % EF(sp4-el) 59.3 % LVAd ap2 28.8 cm\S\2 LVLd ap2 8.6 cm EDV(MOD-sp2) 83.2 ml EDV(sp2-el) 82.4 ml LVAs ap2 17.1 cm\S\2 LVLs ap2 7.1 cm ESV(MOD-sp2) 39.2 ml ESV(sp2-el) 35.1 ml EF(MOD-sp2) 52.9 % EF(sp2-el) 57.4 % LVLd %diff 3.1 % EDV(MOD-bp) 88.5 ml LVLs %diff -2.64 % ESV(MOD-bp) 40.0 ml EF(MOD-bp) 54.8 % SV(MOD-sp4) 49.4 ml SI(MOD-sp4) 26.2 ml/m\S\2 SV(MOD-sp2) 44.0 ml SI(MOD-sp2) 23.4 ml/m\S\2 SV(MOD-bp) 48.5 ml SI(MOD-bp) 25.7 ml/m\S\2 SV(sp4-el) 53.8 ml SI(sp4-el) 28.6 ml/m\S\2 SV(sp2-el) 47.3 ml SI(sp2-el) 25.1 ml/m\S\2 Doppler Measurements and Calculations MV E max sukhdeep 55.3 cm/sec MV A max sukhdeep 42.2 cm/sec MV E/A 1.3 MV dec time 0.27 sec Ao V2 max 114.0 cm/sec Ao max PG 5.2 mmHg Ao max PG (full) 2.5 mmHg LV V1 max PG 2.7 mmHg LV V1 max 82.0 cm/sec
[2017-06-14 16:41] VITALS: BP 98/62; PULSE 79; TEMP 36.6; O2SAT 95
--- NOTE | 2017-06-14 19:49 | Progress Note ---
Progress Note Date of Service Jun 14, 2017. Progress Note 47 F admitted with chest pain /angina equivalent significant family hx of CAD Cardiac stress test shows no evidence of ischemia observe overnight plan is to discharge home in AM
[2017-06-14 20:11] VITALS: BP 86/52; PULSE 76; TEMP 37.1; O2SAT 92
[2017-06-14] MEDS ORDERED: LORAZEPAM 1 MG TAB PO SCH (21:00)
[2017-06-15] VITALS (7 sets, daily range): BP systolic 91–104; BP diastolic 55–61; PULSE 64–68; TEMP 37–37.4; O2SAT 92–96
[2017-06-15] MEDS: MoRPHine SULFATE 2 MG/ML CARP IV PRN (03:23)
[2017-06-15] MEDS: NITROGLYCERIN OINT 2% 1GM PACKET EXT SCH ×2 (06:16→12:00)
[2017-06-15] MEDS: ASPIRIN 81 MG ECTAB PO SCH (07:43)
[2017-06-15] MEDS: CITALOPRAM 20 MG TAB PO SCH (07:43)
[2017-06-15] MEDS: BECLOMETHASONE DIP HFA 80 MCG 8.7G INH INH SCH (07:43)
[2017-06-15] MEDS: SENNA 8.6 MG TAB PO SCH (07:44)
[2017-06-15] MEDS: ESTROGENS, CONJUGATED 0.3 MG TAB PO SCH (07:44)
[2017-06-15] MEDS: LISINOPRIL 10 MG TAB PO SCH (07:46)
[2017-06-15] MEDS: PANTOprazole SOD 40 MG TAB PO SCH (07:46)
[2017-06-15] MEDS: INSULIN ASPART 100 UNITS/ML 3 ML PEN SC SCH ×2 (07:52→12:24)
[2017-06-15] MEDS: INSULIN GLARGINE SOLOSTAR 100 UNITS/ML 3 ML PEN SC SCH (07:54)
[2017-06-15] MEDS ORDERED: METOPROLOL SUCC 25MG EXT REL TAB PO SCH (09:00)
[2017-06-15] MEDS ORDERED: TPRSR25 PO (12:03)
[2017-06-15] MEDS ORDERED: PRT40 PO (12:03)
[2017-06-15] MEDS ORDERED: ASPEC81 PO (12:03)
--- NOTE | 2017-06-15 12:17 | Discharge Instructions ---
Discharge Instructions Date of Service Jun 15, 2017. Admission Reason for Admission: Chest Pain Discharge Discharge Diagnosis / Problem: CHEST PAIN /ATYPICAL /NO EVIDENCE OF ACUTE CORONARY EVENT Discharge Goals Goal(s): Decrease discomfort, Improve disease control, Diagnostic testing, Therapeutic intervention Activity Recommendations Activity Limitations: resume your previous activity . Instructions / Follow-Up Instructions / Follow-Up HOSPITAL FOLLOW UP : 06/21/2017 2:20 PM Allyson Dent MD Internal Medicine [facility] YOU ARE ASKED TO START TAKING LOW DOSE ASPIRIN 81 MG DAILY TO PREVENT /REDUCE FOR ACUTE CORONARY EVENT /STROKE YOUR ARE STARTED ON CHOLESTEROL MEDICATION : ZOCOR 20 MG DAILY PLEASE AVOID FAT AND LIMIT CARBOHYDRATE IN YOUR DIET NEED REPEAT FASTING LIPID PANEL TO BE CHECKED IN 6 MONTHS NEED TO QUIT SMOKING -VERY IMPORTANT TO PREVENT FUTURE HEART ATTACK AND STROKE YOUR DIABETES IS NOT WELL CONTROLLED PLEASE HAVE REFERRAL TO ENDOCRINOLOGY OR DIABETIC CLINIC FOR ADJUSTMENT OF YOU INSULIN REGIMEN AND CONTINUED FOLLOW UP Current Hospital Diet Patient's current hospital diet: AHA Diet (Heart Healthy), Diabetes Type 2 Diet Discharge Diet Recommended Diet: AHA Diet (Heart Healthy), Diabetes Type 2 Diet Pending Studies Studies pending at discharge: no Laboratory Results Hemoglobin A1c Test 06/14/17 03:06 Range/Units Estimated Average Glucose 246 mg/dl Hemoglobin A1c 10.2 H 4.5-5.6 % Lipid Panel Test 06/14/17 03:06 Range/Units Triglycerides Level 191 H 0-150 mg/dl Cholesterol Level 185 0-200 mg/dl HDL Cholesterol 22 mg/dl Cholesterol/HDL Ratio 8.4 LDL Cholesterol, Calculated 125 mg/dl Medical Emergencies . Who to Call and When: Medical Emergencies: If at any time you feel your situation is an emergency, please call 911 immediately. . Non-Emergent Contact Non-Emergency issues call your: Primary Care Provider . . "Provider Documentation" section prepared by Maria Teresa Lucia. . VTE Core Measure Inpt VTE Proph given/why not?: Enoxaparin (Lovenox)SQ
--- NOTE | 2017-06-15 12:21 | Discharge Summary ---
Discharge Summary Date of Service Jun 15, 2017. Discharge Summary Admission Date: Jun 14, 2017 at 01:24 Discharge Date: Jun 15, 2017 Discharge Disposition: Home Principal Diagnosis: CHEST PAIN /ATYPICAL /NO EVIDENCE OF ACUTE CORONARY EVENT Procedures: CARDIAC STRESS TEST: 06/14/17 * There is no inducible ischemia noted at peak stress. * _ workload achieved. * -- Conclusions -- * The heart rate response was blunted due to medications achieving peak heart rate of 122 bpm. * Maximum blood pressure was '156/57' * Stress ECG: No ST changes. No arrhythmias. * Resting wall motion: Normal. Stress wall motion: Appropriate increase in Left ventricular systolic function and decrease in cavity size. No stress induced segmental wall motion abnormalities. Consultations: [facility] Medication Reconciliation New Medications: Aspirin (Aspirin EC Low Dose) 81 Mg Ectab 81 MG PO QAM for 30 Days, #30 TABS 2 Refills take with food Metoprolol Succinate (Metoprolol Succinate ER) 25 Mg Tabcr 12.5 MG PO DAILY for 30 Days, #15 TABS 2 Refills Pantoprazole (Pantoprazole Sodium) 40 Mg Tab 40 MG PO QAM for 30 Days, #30 TAB 2 Refills Continued Medications: Albuterol Hfa (Ventolin Hfa) 200 Puffs/83547 Mcg Aers 2 PUFFS INH Q4 PRN for SOB/Wheezing, #1 INHALER Beclomethasone Dip (Qvar) 80 Mcg/Act Aer 2 PUFFS PO BID Citalopram (Citalopram Hydrobromide) 20 Mg Tab 20 MG PO DAILY, TAB Estrogens, Conjugated (Premarin) 0.3 Mg Tab 0.3 MG PO DAILY Insulin Aspart (Novolog Penfill) 100 Unit/Ml Inj 15 UNIT SQ AC SLIDING SCALE COVERAGE Insulin Glargine (Basaglar Kwikpen) 100 Unit/Ml Inj 1 DOSE SC QPM SLIDING SCALE BSG <200 TAKE 10 UNITS BSG >200 TAKE 20 UNITS Lisinopril (Lisinopril) 10 Mg Tab 10 MG PO DAILY Lorazepam (Lorazepam) 1 Mg Tab 1 MG PO HS Ondansetron Hcl (Zofran) 8 Mg Tab 8 MG PO Q6 PRN for Nausea or Vomiting, TAB Polyethylene Glycol 3350 (Miralax) 1 Pow Pow 17 GM PO DAILY PRN for Constipation, #255 GM Sennosides (Senokot) 8.6 Mg Tab 2 TAB PO BID, TAB Discontinued Medications: Metoprolol Succinate (Metoprolol Succinate ER) 25 Mg Tabcr 25 MG PO DAILY Omeprazole (Prilosec) 20 Mg Capcr 20 MG PO DAILY, CAP Admission Information HPI (per Admitting provider): 47 yo diabetic smoker with HTN and a significant family history of early CAD presents with chest pain that began today around 4:30pm. She states the pressure is constant and still there and feels like someone is sitting on her chest. She has associated symptoms of SOB, lightheadedness, nausea and vomiting , and diaphoresis. The pain moved into her L arm, traveled down it and was associated with numbness and tingling. She denies pain like this in the past but has had a recent stress test in 2012 for further evaluation of a mitral valve disorder. She denies any issues with SU, SOB or chest pain prior to today and is otherwise asymptomatic, denying GI bleeding, abdominal pain, headaches, fevers or chills. In the ER and EKG revealed SR with TWI in the anterior leads but no ST deviations. She received ASA 325mg, nitro and morphine with only some relief. She does have TTP of her peristernal area and states this recreates the pressure feeling. CXR was within normal limits and initial cardiac enzymes were negative. Risk factors include active smoking, HTN , DMII that is uncontrolled and her family history. Specifically, she reports that her mother had an NV at 52 yo, her mother's two brothers had MIs in their 50s and her maternal grandfather had an NV in his 40s. Physical Exam (per Admitting): General Appearance: WD/WN, no apparent distress Head: normocephalic, atraumatic Eyes: normal inspection, PERRL, sclerae normal ENT: hearing grossly normal, pharynx normal Neck: supple, no JVD, trachea midline Respiratory/Chest: lungs clear, normal breath sounds, no respiratory distress, no accessory muscle use, + pertinent finding (TTP of peristernal area) Cardiovascular: regular rate, rhythm, no edema, no gallop, no JVD, no murmur , normal peripheral pulses Abdomen/GI: normal bowel sounds, non tender, soft Back: normal inspection Extremities/Musculoskelatal: normal inspection, no pedal edema Neurologic/Psych: no motor/sensory deficits, alert, normal mood/affect, oriented x 3 Skin: normal color, warm/dry, no rash Hospital Course 47 yo diabetic female smoker with a significant history of early CAD in her family presents with chest pressure CHEST PAIN : atypical for ACS , has reproducible chest wall tenderness feels very anxious appreciate input form Cardiology Cardiac stress test -negative for stress induced angina pt had blunted response for HR elevation with stress Beta hasmukh -Toprol Xl dose reduced form 25mg to 12.5 daily no further cardiac work up needed pt is asked to start on Aspirin 81 mg daily for primary prevention counselled for smoking cessation -high risk for future CAD /NV with significant family hx of premature CAD /type 2 dm and ongoing smoking TYPE 2 DM : poorly controlled Hb A1 c > 10 cont home dose of Lantus /insulin SSI pt will benefit with out pt Endocrine vs Diabetic clinic follow up ANXIETY ; cont Celexa and Ativan HYPERLIPIDEMIA : LDL > 130 given her hx of type 2 DM /HTN /family hx high risk pt goal LDL < 100 started on Zocor 20 mg daily pt is counselled for diet and exercise repeat Fasting lipid panel in 6 months HTN : cont Toprol Xl /lisinopril DVT PROPHYLAXIS SUB Q LOVENOX DISPOSITION stable to be discharged home today Total time spent on discharge = 35 MINS This includes examination of the patient, discharge planning, medication reconciliation, and communication with other providers. Discharge Instructions Discharge Instructions Date of Service Jun 15, 2017. Admission Reason for Admission: Chest Pain Discharge Discharge Diagnosis / Problem: CHEST PAIN /ATYPICAL /NO EVIDENCE OF ACUTE CORONARY EVENT Discharge Goals Goal(s): Decrease discomfort, Improve disease control, Diagnostic testing, Therapeutic intervention Activity Recommendations Activity Limitations: resume your previous activity . Instructions / Follow-Up Instructions / Follow-Up HOSPITAL FOLLOW UP : 06/21/2017 2:20 PM Allyson Dent MD Internal Medicine [facility] YOU ARE ASKED TO START TAKING LOW DOSE ASPIRIN 81 MG DAILY TO PREVENT /REDUCE FOR ACUTE CORONARY EVENT /STROKE YOUR ARE STARTED ON CHOLESTEROL MEDICATION : ZOCOR 20 MG DAILY PLEASE AVOID FAT AND LIMIT CARBOHYDRATE IN YOUR DIET NEED REPEAT FASTING LIPID PANEL TO BE CHECKED IN 6 MONTHS NEED TO QUIT SMOKING -VERY IMPORTANT TO PREVENT FUTURE HEART ATTACK AND STROKE YOUR DIABETES IS NOT WELL CONTROLLED PLEASE HAVE REFERRAL TO ENDOCRINOLOGY OR DIABETIC CLINIC FOR ADJUSTMENT OF YOU INSULIN REGIMEN AND CONTINUED FOLLOW UP Current Hospital Diet Patient's current hospital diet: AHA Diet (Heart Healthy), Diabetes Type 2 Diet Discharge Diet Recommended Diet: AHA Diet (Heart Healthy), Diabetes Type 2 Diet Pending Studies Studies pending at discharge: no Laboratory Results Hemoglobin A1c Test 06/14/17 03:06 Range/Units Estimated Average Glucose 246 mg/dl Hemoglobin A1c 10.2 H 4.5-5.6 % Lipid Panel Test 06/14/17 03:06 Range/Units Triglycerides Level 191 H 0-150 mg/dl Cholesterol Level 185 0-200 mg/dl HDL Cholesterol 22 mg/dl Cholesterol/HDL Ratio 8.4 LDL Cholesterol, Calculated 125 mg/dl Medical Emergencies . Who to Call and When: Medical Emergencies: If at any time you feel your situation is an emergency, please call 911 immediately. . Non-Emergent Contact Non-Emergency issues call your: Primary Care Provider . . "Provider Documentation" section prepared by Maria Teresa Lucia. . VTE Core Measure Inpt VTE Proph given/why not?: Enoxaparin (Lovenox)SQ Additional Copies To Allyson Dent M.D.
--- NOTE | 2017-06-15 12:23 | Progress Note ---
Internal Med Progress Note Date of Service: Jun 15, 2017. Provider Documentation: SUBJECTIVE: no complain of chest heaviness has mild tenderness on central chest wall 10/19 no SOB or SU had uneventful night , feels well rested stable to be discharged home today OBJECTIVE: Vital Signs-as noted below Exam: General-no sign of distress Eyes-sclera non icteric ENT-NAD Neck-no JVD Lungs-CTA ,no rales or wheeze Heart-regular S1/s2 Abdomen-soft, non tender Extremities-no lower ext edema, Neuro-AAO x3, no focal deficit Lab data as noted below. ASSESSMENT & PLAN: 47 yo diabetic female smoker with a significant history of early CAD in her family presents with chest pressure CHEST PAIN : atypical for ACS , has reproducible chest wall tenderness feels very anxious appreciate input form Cardiology Cardiac stress test -negative for stress induced angina pt had blunted response for HR elevation with stress Beta hasmukh -Toprol Xl dose reduced form 25mg to 12.5 daily no further cardiac work up needed pt is asked to start on Aspirin 81 mg daily for primary prevention counselled for smoking cessation -high risk for future CAD /MS with significant family hx of premature CAD /type 2 dm and ongoing smoking TYPE 2 DM : poorly controlled Hb A1 c > 10 cont home dose of Lantus /insulin SSI pt will benefit with out pt Endocrine vs Diabetic clinic follow up ANXIETY ; cont Celexa and Ativan HYPERLIPIDEMIA : LDL > 130 given her hx of type 2 DM /HTN /family hx high risk pt goal LDL < 100 started on Zocor 20 mg daily pt is counselled for diet and exercise repeat Fasting lipid panel in 6 months HTN : cont Toprol Xl /lisinopril DVT PROPHYLAXIS SUB Q LOVENOX DISPOSITION stable to be discharged home today Vital Signs: Date Time Temp Pulse Resp B/P (MAP) Pulse Ox O2 Delivery O2 Flow Rate FiO2 06/15/17 12:12 37.1 65 18 96 Room Air 06/15/17 12:09 96 Room Air 06/15/17 11:52 37.1 65 18 101/55 (70) 94 Room Air 06/15/17 08:04 37.0 64 18 104/61 (75) 92 Room Air 06/15/17 08:01 96 Room Air 06/15/17 04:00 Room Air 06/15/17 03:18 37.0 68 16 93/57 (69) 96 Room Air 06/15/17 00:53 37.4 68 16 91/56 (68) 94 Room Air 06/15/17 00:00 Room Air 06/14/17 20:11 37.1 76 20 86/52 (63) 92 Room Air 06/14/17 20:00 Room Air 06/14/17 16:41 36.6 79 18 98/62 (74) 95 Room Air 06/14/17 16:00 Room Air 06/14/17 12:49 36.7 69 16 87/51 (63) 94 Lab Results: Results Past 24 Hours Test 06/14/17 16:04 06/14/17 20:17 06/15/17 06:50 06/15/17 11:41 Range/Units Bedside Glucose 129 129 119 178 70-90 mg/dl
[2017-06-15] MEDS ORDERED: SIMV20TA5 PO (12:38)
== END 2017-06-15 13:09 | disposition home or self-care (01) ==
LOC: EDBD 22:16 → C.EDC 22:17 → C.2E 06-14 01:24 → ENRESERV 06-14 01:30
PROVIDERS: ADMIT Hospitalist; ATTEND Hospitalist
DX: R07.89 Other chest pain (principal); J45.909 Unspecified asthma, uncomplicated; E11.9 Type 2 diabetes mellitus without complications; K21.9 Gastro-esophageal reflux disease without esophagitis; I10 Essential (primary) hypertension; E78.5 Hyperlipidemia, unspecified; Z86.19 Personal history of other infectious and parasitic diseases; E66.9 Obesity, unspecified; Z90.721 Acquired absence of ovaries, unilateral; Z90.89 Acquired absence of other organs; Z90.49 Acquired absence of other specified parts of digestive tract; Z90.711 Acquired absence of uterus with remaining cervical stump; Z83.3 Family history of diabetes mellitus; Z82.49 Family history of ischemic heart disease and other diseases of the circulatory system; Z83.6 Family history of other diseases of the respiratory system; Z82.0 Family history of epilepsy and other diseases of the nervous system; F17.200 Nicotine dependence, unspecified, uncomplicated; F41.9 Anxiety disorder, unspecified; Z79.84 Long term (current) use of oral hypoglycemic drugs

== ENCOUNTER 2017-07-29 21:08 | Emergency (ER) | payer OTHER ==
[~2017-07-29] VITALS: Ht 167.6 cm; Wt 81.4 kg
[~2017-07-29 21:08] MED LIST changes: -AMIT10TA6 PO; +ASPEC81 PO; -INSDGI SC; -PRLSR20 PO; +PRT40 PO; -RGL/5 PO; +SIMV20TA5 PO; -TPRSR/25 PO; +TPRSR25 PO
[2017-07-29 21:12] VITALS: Ht 167.6 cm; Wt 81.4 kg
[2017-07-29] MEDS ORDERED: ONDANSETRON INJ 2 MG/ML 2 ML VIAL IV STA (21:16)
[2017-07-29] MEDS ORDERED: KETOROLAC TROMETHAMINE 30 MG/ML VIAL IV STA (21:16)
[2017-07-29] MEDS ORDERED: SODIUM CHLORIDE 0.9% 1000ML 1,000 ML IV STA (21:16)
--- NOTE | 2017-07-29 21:34 | EMERGENCY ROOM VISIT NOTE ---
History Report prepared by Charisse: Saad Acevedo Under the Supervision of: Dr. Dilan Lopez M.D. First contact with patient: 21:13 Chief Complaint: VOMITING Stated Complaint: VOMITING, STOMACH PAIN,BLOATING Nursing Triage Summary: pt reports hx of pancreatitis started with NV today , abdominal pain on L side and diffusly History of Present Illness The patient is a 47 year old female who presents to the Emergency Room with complaints of intermittent upper abdominal pain that began two days ago. She rates her pain a 10/10 in severity when it is present. She has a history of pancreatitis and states that her current symptoms feel like her past symptoms associated with her pancreatitis. When her symptoms began, she started to experience nausea while burping up a substance that tasted and smelled like "rotten eggs." She has only been consuming liquids. Today she had episodes of diarrhea and vomiting as well. She notes that her abdomen feels distended. She has a past history of a cholecystectomy and a hysterectomy. She still has her appendix and has not had a bowel resection. She denies any fevers or abnormal urinary symptoms. However, she has been having chills and diaphoresis intermittently. She notes that she experienced head trauma 3 weeks ago and has been having headaches with dizziness ever since. She did not receive a CT scan of her head. Source of History: patient Onset: two days ago Position: abdomen (upper) Symptom Intensity: 10/10 Quality: sharp Timing: intermittent Associated Symptoms: + chills, + headache, + diaphoresis, + nausea, + vomiting, + diarrhea, No fevers, No urinary symptoms Note: She feels as though her abdomen is distended. Review of Systems See HPI for pertinent positives & negatives. A total of 10 systems reviewed and were otherwise negative. Past Medical & Surgical Medical Problems: (1) Abdominal pain (2) Allergic rhinitis (3) Anxiety (4) Asthma, mild intermittent (5) section (6) Chest pain (7) Degenerative cervical disc (8) DIAB MARGARITA WO COMPL, TYPE II OR UNSPEC TYPE, NOT UNCNTRLD (9) Diabetes (10) ESOPHAGEAL REFLUX (11) Gastroparesis due to DM (12) HTN (hypertension) (13) HYPERLIPIDEMIA NEC/NOS (14) Hypertension (15) Kidney disease (16) Lyme disease (17) MIGRAINE W/O AURA W/O INTRACT MGRN W/O STATUS MIGRAINOSUS (18) Obesity (BMI 30.0-34.9) (19) OVARIAN CYST NEC/NOS (20) Pancreatitis (21) Slow transit constipation (22) Tobacco use disorder (23) TOBACCO USE DISORDER (24) UTERINE LEIOMYOMA NOS Surgical Problems: (1) H/O esophagogastroduodenoscopy (2) H/O laparoscopy (3) H/O oophorectomy (4) H/O: (5) History of cholecystectomy (6) History of partial hysterectomy (7) History of tonsillectomy (8) S/P cholecystectomy Family History FH: cancer FHx: diabetes mellitus FHx: gallbladder disease FHx: heart disease FHx: hypertension FHx: lung disease FHx: seizures Heart disease Ischemic heart disease MOTHER (52) GRANDFATHER (40s) Uncle (50) Uncle (50) Social History Smoking Status: Current Every Day Smoker Alcohol Use: none Drug Use: none Marital Status: Housing Status: lives with family Current/Historical Medications Scheduled Aspirin (Sb Low Dose Asa Ec), 81 MG PO DAILY Beclomethasone Dip (Qvar), 2 PUFFS PO BID Buprenorphine Hcl (Subutex), 8 MG UT BID Citalopram (Citalopram Hydrobromide), 20 MG PO DAILY Estrogens, Conjugated (Premarin), 0.3 MG PO DAILY Insulin Aspart (Novolog Flexpen), 1 DOSE SC UD Insulin Glargine (Basaglar Kwikpen), 1 DOSE SC QPM Lisinopril (Lisinopril), 10 MG PO DAILY Lorazepam (Lorazepam), 1 MG PO HS Metoprolol Succinate (Metoprolol Succinate ER), 12.5 MG PO QAM Ondasetron Odt (Zofran Odt), 4 MG SL Q6H Pantoprazole (Pantoprazole Sodium), 40 MG PO QAM Sennosides (Senokot), 17.2 MG PO BID Simvastatin (Simvastatin), 20 MG PO HS Scheduled PRN Albuterol Hfa (Ventolin Hfa), 2 PUFFS INH Q4H PRN for SOB/Wheezing Ondansetron Hcl (Zofran), 8 MG PO Q6H PRN for Nausea or Vomiting Polyethylene Glycol 3350 (Miralax), 17 GM PO DAILY PRN for Constipation Allergies Coded Allergies: Sulfa Antibiotics (Unverified Allergy, Intermediate, RASH/SWELLS/HIVES, ) Cefuroxime (Verified Allergy, Mild, RASH, 06/13/17) BEE STING (Unverified Allergy, Unknown, swelling, 06/13/17) Nicotine (Verified Allergy, Unknown, RASH, 06/13/17) NICOTINE PATCH Physical Exam Vital Signs Date Time Temp Pulse Resp B/P (MAP) Pulse Ox O2 Delivery O2 Flow Rate FiO2 07/29/17 22:50 36.6 80 18 103/63 96 Room Air 07/29/17 21:12 36.5 92 18 116/80 98 Room Air Physical Exam GENERAL: Patient is in no acute distress. HEENT: No acute trauma, normocephalic atraumatic, mucous membranes moist, no nasal congestion, no scleral icterus. NECK: No stridor, no adenopathy, no meningismus, trachea is midline. LUNGS: Clear to auscultation bilaterally, no wheeze, no rhonchi, breath sounds equal. HEART: Without murmurs gallops or rubs, regular rate and rhythm. ABDOMEN: Soft, tender to the epigastrium and both upper quadrants, bowel sounds positive, no hernias, no peritonitis. EXTREMITIES: No cyanosis or edema, full range of motion of all the joints without pain or difficulty, no signs for acute trauma. NEUROLOGIC: Oriented x 3, no acute motor or sensory deficits, no focal weakness. SKIN: No rash, no jaundice, no diaphoresis. Medical Decision & Procedures ER Provider Diagnostic Interpretation: Radiology results as stated below per my review and radiologist interpretation: HEAD WITHOUT CONTRAST (CT) CT DOSE: 601.98 mGy.cm HISTORY: Mental status change trauma, headache TECHNIQUE: Multiaxial CT images of the head were performed without the use of intravenous contrast. A dose lowering technique was utilized adhering to the principles of ALARA. Comparison: 04/21/2016 Findings: The paranasal sinuses and mastoid air cells are clear. The calvarium and skull base are intact. The ventricles and sulci are within normal limits. There is no mass, hematoma, midline shift, or acute infarct. Impression: No acute intracranial abnormality. Minimal chronic white matter hypodensities unaltered compared to prior exams The above report was generated using voice recognition software. It may contain grammatical, syntax or spelling errors. Electronically signed by: Kiko Barkley M.D. 07/29/2017 9:56 PM Dictated Date/Time: 07/29/2017 9:55 PM ABDOMEN 2VIEW W/PA CHEST RTN CLINICAL HISTORY: ABDOMINAL PAIN/GI pain. Nausea. COMPARISON STUDY: 06/13/2017 FINDINGS: Minimal poorly defined basilar parenchymal infiltrates. Lungs otherwise appear clear. Bowel pattern is nonobstructive. IMPRESSION: Minimal bibasilar parenchymal infiltrates. Negative abdomen. The above report was generated using voice recognition software. It may contain grammatical, syntax or spelling errors. Electronically signed by: Kiko Barkley M.D. 07/29/2017 10:24 PM Dictated Date/Time: 07/29/2017 10:22 PM Laboratory Results 07/29/17 21:33 Red Blood Count 5.31, Mean Corpuscular Volume 83.6, Mean Corpuscular Hemoglobin 29.0, Mean Corpuscular Hemoglobin Concent 34.7, Mean Platelet Volume 10.6, Neutrophils (%) (Auto) 48.7, Lymphocytes (%) (Auto) 42.8, Monocytes (%) (Auto) 5.8, Eosinophils (%) (Auto) 1.7, Basophils (%) (Auto) 0.7, Neutrophils # (Auto) 5.06, Lymphocytes # (Auto) 4.44, Monocytes # (Auto) 0.60, Eosinophils # (Auto) 0.18, Basophils # (Auto) 0.07 07/29/17 21:33 Test 07/29/17 21:33 07/29/17 23:18 White Blood Count 10.38 K/uL (4.8-10.8) Red Blood Count 5.31 M/uL (4.2-5.4) Hemoglobin 15.4 g/dL (12.0-16.0) Hematocrit 44.4 % (37-47) Mean Corpuscular Volume 83.6 fL (80-100) Mean Corpuscular Hemoglobin 29.0 pg (25-34) Mean Corpuscular Hemoglobin Concent 34.7 g/dl (32-36) Platelet Count 187 K/uL (130-400) Mean Platelet Volume 10.6 fL (7.4-10.4) Neutrophils (%) (Auto) 48.7 % Lymphocytes (%) (Auto) 42.8 % Monocytes (%) (Auto) 5.8 % Eosinophils (%) (Auto) 1.7 % Basophils (%) (Auto) 0.7 % Neutrophils # (Auto) 5.06 K/uL (1.4-6.5) Lymphocytes # (Auto) 4.44 K/uL (1.2-3.4) Monocytes # (Auto) 0.60 K/uL (0.11-0.59) Eosinophils # (Auto) 0.18 K/uL (0-0.5) Basophils # (Auto) 0.07 K/uL (0-0.2) RDW Standard Deviation 41.4 fL (36.4-46.3) RDW Coefficient of Variation 13.7 % (11.5-14.5) Immature Granulocyte % (Auto) 0.3 % Immature Granulocyte # (Auto) 0.03 K/uL (0.00-0.02) Prothrombin Time 11.6 SECONDS (9.0-12.0) Prothromb Time International Ratio 1.1 (0.9-1.1) Activated Partial Thromboplast Time 26.6 SECONDS (21.0-31.0) Partial Thromboplastin Ratio 1.0 Urine Color YELLOW Urine Appearance CLEAR (CLEAR) Urine pH 5.5 (4.5-7.5) Urine Specific [place] >= 1.030 (1.000-1.030) Urine Protein 1+ (NEG) Urine Glucose (UA) 2+ (NEG) Urine Ketones TRACE (NEG) Urine Occult Blood NEG (NEG) Urine Nitrite NEG (NEG) Urine Bilirubin NEG (NEG) Urine Urobilinogen NEG (NEG) Urine Leukocyte Esterase NEG (NEG) Urine RBC 0-4 /hpf (0-4) Urine WBC 1-5 /hpf (0-5) Urine Epithelial Cells >30 /lpf (0-5) Urine Bacteria NEG (NEG) Urine Hyaline Casts 10-30 /lpf (0-5) Urine Mucus PRESENT (NONE PRSENT) Anion Gap 7.0 mmol/L (3-11) Est Creatinine Clear Calc Drug Dose 97.9 ml/min Estimated GFR () 106.4 Estimated GFR (Non- 91.8 BUN/Creatinine Ratio 10.2 (10-20) Calcium Level 9.2 mg/dl (8.5-10.1) Magnesium Level 1.4 mg/dl (1.8-2.4) Total Bilirubin 0.6 mg/dl (0.2-1) Aspartate Amino Transf (AST/SGOT) 19 U/L (15-37) Alanine Aminotransferase (ALT/SGPT) 42 U/L (12-78) Alkaline Phosphatase 138 U/L (45-117) Troponin I < 0.015 ng/ml (0-0.045) Total Protein 7.9 gm/dl (6.4-8.2) Albumin 3.8 gm/dl (3.4-5.0) Globulin 4.1 gm/dl (2.5-4.0) Albumin/Globulin Ratio 0.9 (0.9-2) Lipase 175 U/L (73-393) Beta-Hydroxybutyric Acid 0.54 mg/dL (0.2-2.81) Bedside Glucose 137 mg/dl (70-90) Laboratory results reviewed by me. Medications Administered Medications (Trade) Dose Ordered Sig/Terrance Route Start Time Stop Time Status Last Admin Dose Admin Ondansetron HCl (Zofran Inj) 4 mg NOW STAT IV 07/29/17 21:16 07/29/17 21:23 DC 07/29/17 21:39 4 MG Sodium Chloride 1,000 ml @ 999 mls/hr Q1H1M STAT IV 07/29/17 21:16 07/29/17 22:16 DC 07/29/17 21:39 999 MLS/HR Morphine Sulfate (MoRPHine SULFATE INJ) 4 mg Q30M PRN IV 07/29/17 21:30 08/12/17 21:29 07/29/17 22:35 4 MG Ketorolac Tromethamine (Toradol Inj) 30 mg NOW STAT IV 07/29/17 21:16 07/29/17 21:23 DC 07/29/17 21:40 30 MG Insulin Human Regular (novoLIN-R U-100 PER UNIT) 8 units NOW STAT IV 07/29/17 22:26 07/29/17 22:28 DC 07/29/17 22:36 8 UNITS Magnesium Sulfate (Magnesium Sulfate) 2 gm NOW STAT IV 07/29/17 22:27 07/29/17 22:28 DC 07/29/17 22:35 2 GM ED Course 2112: The patient was evaluated in room A2. A complete history and physical exam was performed. 2115: Ordered Toradol Inj 30 mg IV, Sodium Chloride 1000 ml @ 999 mls/hr IV, Zofran Inj 4 mg IV 0: Ordered Morphine Sulfate 4 mg IV 2225: Ordered Insulin Human Regular 8 units IV 2226: Ordered Magnesium Sulfate 2 gm IV 2320: Upon reevaluation, the patient is doing better. Her repeat BSG after receiving the Insulin was 136. 2345: Ordered Oxycodone HCl 1 homepack PO, Ondansetron HCl 1 homepack PO 0000: Reevaluated the patient. Discussed results and discharge instructions: She verbalized understanding and agreement. The patient is ready for discharge. Medical Decision Differential diagnosis includes but is not limited to pancreatitis, bowel obstruction, viral illness, food=borne illness, dehydration, electrolyte abnormality, UTI, and hernia. There is no leukocytosis or concerning anemia. Sugar was high at over 300. Magnesium was low 1.4. No kidney failure. No hepatitis or pancreatitis. Obstruction series shows some atelectasis at both lung bases, no free air, no bowel obstruction. Urinalysis does not show infection. Brain CT shows no acute bleed or mass effect. Cardiac enzyme testing does not show any evidence for acute cardiac injury. There was no coagulopathy. On exam, the patient did not have peritonitis, she was not febrile or toxic. Patient was given IV saline, IV Toradol, IV morphine and IV Zofran. She received IV insulin and IV magnesium. Blood sugar is now about 130. She has made marked improvement with our treatment. She will see her doctor later this week, I will prescribe some Zofran for nausea, she was given a few oxycodone to take home to use for pain. A bland diet was suggested. Her illness may be viral, this could be food borne. She has had similar issues in the past. If the patient is worsening, if she has a fever, she will return for reassessment. Medication Reconcilliation Current Medication List: was personally reviewed by me Blood Pressure Screening Patient's blood pressure: Normal blood pressure Blood pressure disposition: Did not require urgent referral Impression Primary Impression: Vomiting Additional Impressions: Diarrhea Epigastric abdominal pain Hypomagnesemia Hyperglycemia Scribe Attestation The scribe's documentation has been prepared under my direction and personally reviewed by me in its entirety. I confirm that the note above accurately reflects all work, treatment, procedures, and medical decision making performed by me. Departure Information Dispostion Home / Self-Care Prescriptions Ondasetron Odt (ZOFRAN ODT) 4 Mg Tab 4 MG SL Q6H for Nausea, #10 TAB Prov: Dilan Lopez M.D. 07/29/17 Referrals Allyson Dent M.D. (PCP) Forms HOME CARE DOCUMENTATION FORM, IMPORTANT VISIT INFORMATION Patient Instructions My [facility] Additional Instructions bland diet--crackers, soup, toast zofran 1 tab every 6 hours for nausea as needed oxy ir 1 tab every 4 hours for severe pain see te [facility] this week for a recheck return for fever, worsening symptoms or if not improving Problem Qualifiers
[2017-07-29] MEDS: MoRPHine SULFATE 4 MG/ML 1 ML CARP\\VIAL IV PRN ×2 (21:39→22:35)
[2017-07-29 21:44] LABS: BASO % 0.7 %; BASO ABS # 0.07 K/uL (0-0.2); COMPLETE YES; EOS % 1.7 %; HEMATOCRIT 44.4 % (37-47); IG% 0.3 %; LYMPH % 42.8 %; LYMPH ABS # 4.44 K/uL (1.2-3.4); MEAN CELL VOLUME 83.6 fL (80-100); MEAN CORPUSCULAR HGB CONC 34.7 g/dl (32-36); MEAN PLATELET VOLUME 10.6 fL (7.4-10.4); MONO % 5.8 %; NEUT % 48.7 %; PLATELET COUNT 187 K/uL (130-400); RED BLOOD COUNT 5.31 M/uL (4.2-5.4); WHITE BLOOD COUNT 10.38 K/uL (4.8-10.8)
[2017-07-29] MEDS ORDERED: PANT40TA2 PO (21:46)
[2017-07-29] MEDS ORDERED: TPRSR/25 PO (21:46)
[2017-07-29] MEDS ORDERED: SIMV-151 PO (21:46)
[2017-07-29] MEDS ORDERED: CLX/20 PO (21:46)
[2017-07-29] MEDS ORDERED: NVLGI/PEN SC (21:46)
[2017-07-29] MEDS ORDERED: ASPI81TA48 PO (21:46)
[2017-07-29 21:53] LABS: INR 1.1 (0.9-1.1); PROTHROMBIN TIME (PATIENT) 11.6 SECONDS (9.0-12.0)
[2017-07-29] MEDS ORDERED: BUPR8SUB19 UT (21:53)
[2017-07-29 21:56] LABS: MANUAL MICROSCOPIC REQUIRED? YES; URINE APPEARANCE CLEAR (CLEAR); URINE BILIRUBIN NEG (NEG); URINE COLOR YELLOW; URINE NITRITE NEG (NEG); URINE PH 5.5 (4.5-7.5); URINE SPECIFIC GRAVITY >= 1.030 (1.000-1.030); UROBILINOGEN NEG (NEG)
--- NOTE | 2017-07-29 21:57 | DIAGNOSTIC IMAGING REPORT ---
HEAD WITHOUT CONTRAST (CT) CT DOSE: 601.98 mGy.cm HISTORY: Mental status change trauma, headache TECHNIQUE: Multiaxial CT images of the head were performed without the use of intravenous contrast. A dose lowering technique was utilized adhering to the principles of ALARA. Comparison: 04/21/2016 Findings: The paranasal sinuses and mastoid air cells are clear. The calvarium and skull base are intact. The ventricles and sulci are within normal limits. There is no mass, hematoma, midline shift, or acute infarct. Impression: No acute intracranial abnormality. Minimal chronic white matter hypodensities unaltered compared to prior exams The above report was generated using voice recognition software. It may contain grammatical, syntax or spelling errors. Electronically signed by: Kiko Barkley M.D. 07/29/2017 9:56 PM Dictated Date/Time: 07/29/2017 9:55 PM
[2017-07-29 21:58] LABS: REVIEW REQ? NO
[2017-07-29 22:02] LABS: ALT/SGPT 42 U/L (12-78); BLOOD UREA NITROGEN 8 mg/dl (7-18); BUN/CREATININE RATIO 10.2 (10-20); CALCIUM 9.2 mg/dl (8.5-10.1); CARBON DIOXIDE 29 mmol/L (21-32); CHLORIDE 97 mmol/L (98-107); CREATININE 0.78 mg/dl (0.60-1.20); GLUCOSE 324 mg/dl (70-99); MAGNESIUM 1.4 mg/dl (1.8-2.4); POTASSIUM 3.7 mmol/L (3.5-5.1); SODIUM 133 mmol/L (136-145)
[2017-07-29 22:05] LABS: ALB/GLOB RATIO 0.9 (0.9-2); AST/SGOT 19 U/L (15-37)
[2017-07-29 22:12] LABS: ALKALINE PHOSPHATASE 138 U/L (45-117); BETA-HYDROXYBUTYRATE 0.54 mg/dL (0.2-2.81)
[2017-07-29 22:13] LABS: URINE BACTERIA NEG (NEG); URINE MUCUS PRESENT (NONE PRSENT); URINE RBC 0-4 /hpf (0-4)
[2017-07-29 22:14] LABS: ZZUR CULT IF INDIC CLEAN CATCH NO
--- NOTE | 2017-07-29 22:25 | DIAGNOSTIC IMAGING REPORT ---
ABDOMEN 2VIEW W/PA CHEST RTN CLINICAL HISTORY: ABDOMINAL PAIN/GI pain. Nausea. COMPARISON STUDY: 06/13/2017 FINDINGS: Minimal poorly defined basilar parenchymal infiltrates. Lungs otherwise appear clear. Bowel pattern is nonobstructive. IMPRESSION: Minimal bibasilar parenchymal infiltrates. Negative abdomen. The above report was generated using voice recognition software. It may contain grammatical, syntax or spelling errors. Electronically signed by: Kiko Barkley M.D. 07/29/2017 10:24 PM Dictated Date/Time: 07/29/2017 10:22 PM
[2017-07-29] MEDS ORDERED: NovoLIN-R INSULIN PER UNIT CHARGE IV STA (22:26)
[2017-07-29] MEDS ORDERED: MAGNESIUM SULFATE 1GM / D5W 1 GM BAG IV STA (22:27)
[2017-07-29] MEDS ORDERED: INSU100I23 SC (22:55)
[2017-07-29] MEDS ORDERED: ONDA4TAB10 SL (23:37)
[2017-07-29] MEDS ORDERED: ONDANSETRON HOME PACK 4MG OD TAB PO ONE (23:45)
[2017-07-29] MEDS ORDERED: OXYCODONE IR HOME PACK PO ONE (23:45)
[2017-07-30 00:12] VITALS: BP 102/70; PULSE 79; TEMP 36.6; O2SAT 96
== END 2017-07-30 00:30 | disposition home or self-care (01) ==
LOC: C.EDB 21:09 → C.EDA 07-30 00:30
DX: R11.10 Vomiting, unspecified (principal); R19.7 Diarrhea, unspecified; R10.13 Epigastric pain; E83.42 Hypomagnesemia; E11.65 Type 2 diabetes mellitus with hyperglycemia; J45.20 Mild intermittent asthma, uncomplicated; K21.9 Gastro-esophageal reflux disease without esophagitis; I10 Essential (primary) hypertension; E78.5 Hyperlipidemia, unspecified; Z98.891 History of uterine scar from previous surgery; Z90.49 Acquired absence of other specified parts of digestive tract; Z90.711 Acquired absence of uterus with remaining cervical stump; Z90.721 Acquired absence of ovaries, unilateral; Z90.89 Acquired absence of other organs; Z98.890 Other specified postprocedural states; Z83.3 Family history of diabetes mellitus; Z82.49 Family history of ischemic heart disease and other diseases of the circulatory system; Z82.0 Family history of epilepsy and other diseases of the nervous system; Z79.4 Long term (current) use of insulin; Z79.82 Long term (current) use of aspirin; Z79.899 Other long term (current) drug therapy

== ENCOUNTER 2017-08-05 22:00 | Emergency (ER) | payer OTHER ==
[~2017-08-05] VITALS: Ht 167.6 cm; Wt 80.1 kg
[~2017-08-05 22:00] MED LIST changes: -ASPEC81 PO; +ASPI81TA48 PO; +BUPR8SUB19 UT; +CLX/20 PO; -CLX20 PO; +INSU100I23 SC; -INSU1INJ2 SQ; +NVLGI/PEN SC; +ONDA4TAB10 SL; +PANT40TA2 PO; -PRT40 PO; +SIMV-151 PO; -SIMV20TA5 PO; +TPRSR/25 PO; -TPRSR25 PO
[2017-08-05 22:14] VITALS: TEMP 36.7; Ht 167.6 cm; Wt 80.1 kg
[2017-08-05] MEDS ORDERED: OPTIRAY 320 IV PRN (22:45)
[2017-08-05 23:08] LABS: BASO % 0.3 %; BASO ABS # 0.04 K/uL (0-0.2); COMPLETE YES; EOS % 1.2 %; HEMATOCRIT 38.9 % (37-47); IG% 0.2 %; LYMPH % 35.5 %; LYMPH ABS # 4.66 K/uL (1.2-3.4); MEAN CELL VOLUME 83.7 fL (80-100); MEAN CORPUSCULAR HEMOGLOBIN 28.6 pg (25-34); MEAN CORPUSCULAR HGB CONC 34.2 g/dl (32-36); MEAN PLATELET VOLUME 10.5 fL (7.4-10.4); MONO % 5.9 %; NEUT % 56.9 %; PLATELET COUNT 150 K/uL (130-400); RED BLOOD COUNT 4.65 M/uL (4.2-5.4); WHITE BLOOD COUNT 13.14 K/uL (4.8-10.8)
[2017-08-05 23:10] LABS: URINE APPEARANCE CLEAR (CLEAR); URINE BILIRUBIN NEG (NEG); URINE COLOR YELLOW; URINE NITRITE NEG (NEG); URINE PH 6.5 (4.5-7.5); UROBILINOGEN NEG (NEG); ZZUR CULT IF INDIC CLEAN CATCH NO
[2017-08-05 23:14] LABS: PREG INTERNAL NEGATIVE QC NEG CLEAR BACKGROUND; PREG INTERNAL POSITIVE QC POS CONTROL LINE
[2017-08-05 23:15] LABS: MANUAL MICROSCOPIC REQUIRED? NO; REVIEW REQ? NO
[2017-08-05] MEDS ORDERED: KETOROLAC TROMETHAMINE 30 MG/ML VIAL IV STA (23:31)
[2017-08-05] MEDS ORDERED: ONDANSETRON INJ 2 MG/ML 2 ML VIAL IV STA (23:31)
[2017-08-05 23:35] LABS: BUN/CREATININE RATIO 5.2 (10-20); CALCIUM 8.9 mg/dl (8.5-10.1); CREATININE 0.71 mg/dl (0.60-1.20); POTASSIUM 3.3 mmol/L (3.5-5.1)
[2017-08-06] MEDS ORDERED: MoRPHine SULFATE 10 MG/ML CARP/VIAL IV STA (00:57)
[2017-08-06] MEDS ORDERED: MoRPHine SULFATE 2 MG/ML CARP ONE (01:08)
[2017-08-06] MEDS ORDERED: MoRPHine SULFATE 4 MG/ML 1 ML CARP\\VIAL ONE (01:09)
[2017-08-06] MEDS ORDERED: ZNTT/150 PO (02:27)
--- NOTE | 2017-08-06 02:27 | EMERGENCY ROOM VISIT NOTE ---
History First contact with patient: 22:31 Chief Complaint: ABDOMINAL PAIN Stated Complaint: ENLARGED STOMACH/PAIN,VOMITING,METAL TASTE IN MOUT Nursing Triage Summary: c/o abd pain with n/v/d since 170. History of Present Illness The patient is a 47 year old female who presents to the Emergency Room with complaints of abdominal pain. The patient states she has pain in her upper abdomen which began several hours ago. She has had several episodes of vomiting as well as one episode of diarrhea. She reports a history of pancreatitis of unknown origin. She feels that her abdomen is distended and reports a metallic taste in her mouth. She also reports a "pulling" pain in her right lower quadrant. She rates the discomfort a 10/10. There were no aggravating or alleviating factors. She took Tylenol without relief. She did not take any nausea medication at home. She had some similar symptoms about 1 week ago and states that they subsided without treatment. Review of Systems A complete 10 point review of systems was reviewed with the patient with pertinent positives and negatives as per history of present illness. All else were negative. Past Medical/Surgical History Medical Problems: (1) Abdominal pain (2) Allergic rhinitis (3) Anxiety (4) Asthma, mild intermittent (5) section (6) Chest pain (7) Degenerative cervical disc (8) DIAB MARGARITA WO COMPL, TYPE II OR UNSPEC TYPE, NOT UNCNTRLD (9) Diabetes (10) ESOPHAGEAL REFLUX (11) Gastroparesis due to DM (12) HTN (hypertension) (13) HYPERLIPIDEMIA NEC/NOS (14) Hypertension (15) Kidney disease (16) Lyme disease (17) MIGRAINE W/O AURA W/O INTRACT MGRN W/O STATUS MIGRAINOSUS (18) Obesity (BMI 30.0-34.9) (19) OVARIAN CYST NEC/NOS (20) Pancreatitis (21) Slow transit constipation (22) Tobacco use disorder (23) TOBACCO USE DISORDER (24) UTERINE LEIOMYOMA NOS Surgical Problems: (1) H/O esophagogastroduodenoscopy (2) H/O laparoscopy (3) H/O oophorectomy (4) H/O: (5) History of cholecystectomy (6) History of partial hysterectomy (7) History of tonsillectomy (8) S/P cholecystectomy Family History FH: cancer FHx: diabetes mellitus FHx: gallbladder disease FHx: heart disease FHx: hypertension FHx: lung disease FHx: seizures Heart disease Ischemic heart disease MOTHER (52) GRANDFATHER (40s) Uncle (50) Uncle (50) Social History Smoking Status: Current Every Day Smoker Alcohol Use: none Drug Use: none Marital Status: Housing Status: lives with family Current/Historical Medications Scheduled Aspirin (Sb Low Dose Asa Ec), 81 MG PO DAILY Beclomethasone Dip (Qvar), 2 PUFFS PO BID Buprenorphine Hcl (Subutex), 8 MG UT BID Citalopram (Citalopram Hydrobromide), 20 MG PO DAILY Estrogens, Conjugated (Premarin), 0.3 MG PO DAILY Insulin Aspart (Novolog Flexpen), 1 DOSE SC UD Insulin Glargine (Basaglar Kwikpen), 1 DOSE SC QPM Lisinopril (Lisinopril), 10 MG PO DAILY Lorazepam (Lorazepam), 1 MG PO HS Metoprolol Succinate (Metoprolol Succinate ER), 12.5 MG PO QAM Ondasetron Odt (Zofran Odt), 4 MG SL Q6H Pantoprazole (Pantoprazole Sodium), 40 MG PO QAM Ranitidine (Zantac), 150 MG PO BID Sennosides (Senokot), 17.2 MG PO BID Simvastatin (Simvastatin), 20 MG PO HS Scheduled PRN Albuterol Hfa (Ventolin Hfa), 2 PUFFS INH Q4H PRN for SOB/Wheezing Ondansetron Hcl (Zofran), 8 MG PO Q6H PRN for Nausea or Vomiting Polyethylene Glycol 3350 (Miralax), 17 GM PO DAILY PRN for Constipation Physical Exam Vital Signs Date Time Temp Pulse Resp B/P (MAP) Pulse Ox O2 Delivery O2 Flow Rate FiO2 08/06/17 02:38 70 18 115/75 95 08/06/17 00:23 78 18 119/79 95 Room Air 08/05/17 22:14 36.7 87 20 127/78 97 Room Air Physical Exam VITALS: Vitals are noted on the nurse's note and reviewed by myself. Vital signs stable. GENERAL: This is a 47-year-old female, in no acute distress, nondiaphoretic, well-developed well-nourished. SKIN: The skin was without rashes. HEART: Regular rate and rhythm without murmurs gallops or rubs. LUNGS: Clear to auscultation bilaterally without wheezes, rales or rhonchi. ABDOMEN: Positive bowel sounds x 4. Soft, mild right lower quadrant and epigastric tenderness. No guarding or rebound tenderness. NEURO: Patient was alert and oriented to person place and time. Medical Decision & Procedures ER Provider Diagnostic Interpretation: CT ABDOMEN & PELVIS WITH CONTRAST: Atelectatic changes along with small subpleural nodular densities and groundglass opacities. No effusions. Possible septal thickening. Could represent findings of edema with somewhat similar findings on the prior. No CT evidence for acute pancreatitis. Diverticulosis. Portions of the colon poorly distended limiting evaluation for wall thickening but no diverticulitis or pericolonic inflammatory change. Difficult to exclude some wall thickening in the under distended stomach. Correlate for gastritis. No bowel obstruction or other acute process. Cholecystectomy and other unchanged findings. Radiologist: Rupesh Phelps MD Laboratory Results 08/05/17 22:53 Red Blood Count 4.65, Mean Corpuscular Volume 83.7, Mean Corpuscular Hemoglobin 28.6, Mean Corpuscular Hemoglobin Concent 34.2, Mean Platelet Volume 10.5, Neutrophils (%) (Auto) 56.9, Lymphocytes (%) (Auto) 35.5, Monocytes (%) (Auto) 5.9, Eosinophils (%) (Auto) 1.2, Basophils (%) (Auto) 0.3, Neutrophils # (Auto) 7.48, Lymphocytes # (Auto) 4.66, Monocytes # (Auto) 0.77, Eosinophils # (Auto) 0.16, Basophils # (Auto) 0.04 08/05/17 22:53 Test 08/05/17 22:53 White Blood Count 13.14 K/uL (4.8-10.8) Red Blood Count 4.65 M/uL (4.2-5.4) Hemoglobin 13.3 g/dL (12.0-16.0) Hematocrit 38.9 % (37-47) Mean Corpuscular Volume 83.7 fL (80-100) Mean Corpuscular Hemoglobin 28.6 pg (25-34) Mean Corpuscular Hemoglobin Concent 34.2 g/dl (32-36) Platelet Count 150 K/uL (130-400) Mean Platelet Volume 10.5 fL (7.4-10.4) Neutrophils (%) (Auto) 56.9 % Lymphocytes (%) (Auto) 35.5 % Monocytes (%) (Auto) 5.9 % Eosinophils (%) (Auto) 1.2 % Basophils (%) (Auto) 0.3 % Neutrophils # (Auto) 7.48 K/uL (1.4-6.5) Lymphocytes # (Auto) 4.66 K/uL (1.2-3.4) Monocytes # (Auto) 0.77 K/uL (0.11-0.59) Eosinophils # (Auto) 0.16 K/uL (0-0.5) Basophils # (Auto) 0.04 K/uL (0-0.2) RDW Standard Deviation 40.8 fL (36.4-46.3) RDW Coefficient of Variation 13.6 % (11.5-14.5) Immature Granulocyte % (Auto) 0.2 % Immature Granulocyte # (Auto) 0.03 K/uL (0.00-0.02) Urine Color YELLOW Urine Appearance CLEAR (CLEAR) Urine pH 6.5 (4.5-7.5) Urine Specific [place] 1.010 (1.000-1.030) Urine Protein NEG (NEG) Urine Glucose (UA) NEG (NEG) Urine Ketones NEG (NEG) Urine Occult Blood NEG (NEG) Urine Nitrite NEG (NEG) Urine Bilirubin NEG (NEG) Urine Urobilinogen NEG (NEG) Urine Leukocyte Esterase NEG (NEG) Urine Test NEG (NEG) Anion Gap 8.0 mmol/L (3-11) Est Creatinine Clear Calc Drug Dose 106.8 ml/min Estimated GFR () 119.2 Estimated GFR (Non- 102.9 BUN/Creatinine Ratio 5.2 (10-20) Calcium Level 8.9 mg/dl (8.5-10.1) Total Bilirubin 0.3 mg/dl (0.2-1) Aspartate Amino Transf (AST/SGOT) 14 U/L (15-37) Alanine Aminotransferase (ALT/SGPT) 42 U/L (12-78) Alkaline Phosphatase 123 U/L (45-117) Total Protein 7.4 gm/dl (6.4-8.2) Albumin 3.6 gm/dl (3.4-5.0) Globulin 3.8 gm/dl (2.5-4.0) Albumin/Globulin Ratio 1.0 (0.9-2) Lipase 259 U/L (73-393) Medications Administered Medications (Trade) Dose Ordered Sig/Terrance Route Start Time Stop Time Status Last Admin Dose Admin Ondansetron HCl (Zofran Inj) 4 mg NOW STAT IV 08/05/17 23:31 08/05/17 23:32 DC 08/05/17 23:45 4 MG Ketorolac Tromethamine (Toradol Inj) 30 mg NOW STAT IV 08/05/17 23:31 08/05/17 23:32 DC 08/05/17 23:46 30 MG Morphine Sulfate (MoRPHine SULFATE INJ) 2 mg STK-MED ONCE .ROUTE 08/06/17 01:08 08/06/17 01:09 DC 08/06/17 01:13 2 MG Morphine Sulfate (MoRPHine SULFATE INJ) 4 mg STK-MED ONCE .ROUTE 08/06/17 01:09 08/06/17 01:10 DC 08/06/17 01:13 4 MG ED Course The patient was evaluated as above. Labs were drawn and IV access was obtained. Patient was medicated with Toradol and Zofran. Patient reported increased pain and was given [address] abdomen and pelvis was performed and read by radiology as above. Patient was reevaluated and findings were discussed. Discharge instructions were reviewed with the patient. The patient verbalized understanding of my assessment and treatment plan and was discharged home in good condition. Medical Decision Differential diagnosis includes pancreatitis, gastroenteritis, colitis, small bowel obstruction, appendicitis, among others. The patient is a 47-year-old female who presents today complaining of abdominal pain and vomiting. Labs revealed mild leukocytosis which may be secondary to vomiting. Patient does have an elevated glucose. Labs are otherwise unremarkable. Urinalysis was not suggestive of infection. CT shows no acute findings. There was some evidence of gastritis. Patient reports she takes Protonix and was instructed to add on Zantac for further relief. Her symptoms today may be secondary to gastroenteritis. She was advised to have close follow -up with her PCP. The patient's case was reviewed with Dr. Vasquez, ED attending physician, who agreed with my assessment and treatment plan. Based on the patient's presentation and work up, I feel the patient is stable for outpatient treatment. The patient was educated to return to the emergency department for any worsening of their current condition or new/concerning symptoms. She will follow up with her PCP. Medication Reconcilliation Current Medication List: was personally reviewed by me Blood Pressure Screening Patient's blood pressure: Normal blood pressure Impression Primary Impression: Abdominal pain with vomiting Departure Information Dispostion Home / Self-Care Condition GOOD Prescriptions Ranitidine (Zantac) 150 Mg Tab 150 MG PO BID for 14 Days, #28 TAB Prov: Sonia Johnson PA-C 08/06/17 Referrals Allyson Dent M.D. (PCP) Patient Instructions My [facility] Additional Instructions You have been treated in the Emergency Department for your Abdominal Pain. Laboratory results and imaging studies have ruled out any emergent causes for your abdominal pain which would warrant admission or surgery. Zofran as needed for nausea. You should take the Zantac as prescribed. Follow-up with your primary care provider for a recheck this week. For pain control, you can use the following [id number] medicines (if >12 yo): - Regular strength (325mg/tab) Tylenol (acetaminophen) 2 tabs every 4-6 hours as needed. Do not exceed 12 tablets in a 24 hour period. Avoid taking more than 4 grams (4000 mg) of Tylenol per day. This includes any other sources of acetaminophen you may take on a regular basis. - Regular strength (200 mg/tab) Advil (ibuprofen) 1-2 tabs every 4-6 hours as needed. Do not exceed a dose of 3200 mg per day. Drink plenty of water and stay well hydrated. Return to the emergency department if your symptoms persist despite treatment plan outlined above or if the following symptoms occur: fevers, chills, worsening nausea/vomiting, blood in your stool or urine.
[2017-08-06 02:38] VITALS: BP 115/75; PULSE 70; O2SAT 95
--- NOTE | 2017-08-06 07:53 | DIAGNOSTIC IMAGING REPORT ---
CT SCAN OF THE ABDOMEN AND PELVIS WITH IV CONTRAST CLINICAL HISTORY: Epigastric abdominal pain. Reported history of pancreatitis. COMPARISON STUDY: Abdominal CT dated 01/01/2017. TECHNIQUE: Following the IV administration of 116 cc of Optiray 320, CT scan of the abdomen and pelvis is performed from the lung bases to the proximal femora. Images are reviewed in the axial, sagittal, and coronal planes. IV contrast was administered without complication. A dose lowering technique was utilized adhering to the principles of ALARA. CT DOSE: 562.56 mGy.cm FINDINGS: Lung bases: The heart is normal in size and without pericardial effusion. The lung bases are clear noting dependent atelectasis. There is a tiny hiatal hernia. Liver: The contrast-enhanced liver is enlarged, measuring 21 cm in length. The liver demonstrates diffusely diminished attenuation consistent with hepatic steatosis. There is no intrahepatic biliary ductal dilatation. The hepatic veins and portal veins are patent. Gallbladder: Surgically absent noting clips in the gallbladder fossa. Spleen: The spleen is enlarged, measuring 14.2 cm in length. Pancreas: Unremarkable. Adrenal glands: Unremarkable. Kidneys: The contrast enhanced kidneys are normal in size and without hydronephrosis. The kidneys enhance symmetrically. Abdominal vasculature: The abdominal aorta is normal in course and caliber noting mild to moderate age-advanced atherosclerotic calcification. Bowel: There are scattered colonic diverticula without CT evidence of acute diverticulitis. No bowel obstruction is seen. The appendix is well-visualized and normal. Peritoneum: There is no intraperitoneal free air or abdominal ascites. Lymphadenopathy: None. Pelvic viscera: The bladder is normal as visualized. The uterus is surgically absent. No adnexal lesion is seen. Skeletal structures: No lytic or blastic lesions are seen. IMPRESSION: 1. There are no acute infectious or inflammatory findings in the abdomen or pelvis. 2. Hepatomegaly and hepatic steatosis. 3. Splenomegaly. 4. Additional findings as above. Electronically signed by: Dilan Lazo M.D. 08/06/2017 7:52 AM Dictated Date/Time: 08/06/2017 7:47 AM
== END 2017-08-06 02:39 | disposition home or self-care (01) ==
LOC: C.EDB 22:01
DX: R10.10 Upper abdominal pain, unspecified (principal); R10.30 Lower abdominal pain, unspecified; R11.10 Vomiting, unspecified; J45.20 Mild intermittent asthma, uncomplicated; E11.9 Type 2 diabetes mellitus without complications; K21.9 Gastro-esophageal reflux disease without esophagitis; I10 Essential (primary) hypertension; E78.5 Hyperlipidemia, unspecified; N28.9 Disorder of kidney and ureter, unspecified; Z90.49 Acquired absence of other specified parts of digestive tract; Z79.82 Long term (current) use of aspirin; Z79.891 Long term (current) use of opiate analgesic; Z79.4 Long term (current) use of insulin; Z83.3 Family history of diabetes mellitus; Z82.49 Family history of ischemic heart disease and other diseases of the circulatory system; Z83.79 Family history of other diseases of the digestive system; Z83.6 Family history of other diseases of the respiratory system; Z82.0 Family history of epilepsy and other diseases of the nervous system; F17.200 Nicotine dependence, unspecified, uncomplicated

== ENCOUNTER 2017-08-11 00:35 | Emergency (ER) | payer OTHER ==
[~2017-08-11] VITALS: Ht 167.6 cm; Wt 82.1 kg
[~2017-08-11 00:35] MED LIST changes: +ZNTT/150 PO
[2017-08-11 00:45] VITALS: TEMP 36.5; Ht 167.6 cm; Wt 82.1 kg
[2017-08-11] MEDS ORDERED: ONDANSETRON INJ 2 MG/ML 2 ML VIAL IV STA (01:08)
--- NOTE | 2017-08-11 01:11 | EMERGENCY ROOM VISIT NOTE ---
History Report prepared by Scribe: Lana Morelos Under the Supervision of: Dimitri HoughO. First contact with patient: 00:58 Chief Complaint: GI ASSESSMENT Stated Complaint: VOMITING,STOMACH AND ABD PAIN,FOUL TASTE AND SMELL Nursing Triage Summary: Pt reports she is having diffuse abdominal pain rated 8/10, nausea and vomiting x2 today. Reports symptoms have been ongoing for 3 weeks. Has appointment with gastro next week for followup. Pt currently on Zantac and bland diet without relief. Told she has gastritis. History of Present Illness The patient is a 47 year old female who presents to the Emergency Room with complaints of worsening abdominal pain for the past 3 weeks. She rates her discomfort as an 8/10 in severity. She has followed with Gastroenterology in the past and states she was told she has gastritis. She has tried Zantac and eating a bland diet with no relief. She has also been nauseous and vomited twice yesterday. The patient also admits to a history of pancreatitis. Source of History: patient Onset: 3 weeks SPECIAL PROJECTS MANAGER Position: abdomen Symptom Intensity: 8/10 Timing: worsening Modifying Factors (Relieving): other (Zantac, bland diet) Associated Symptoms: + nausea, + vomiting Review of Systems See HPI for pertinent positives and negatives. A total of ten systems were reviewed and were otherwise negative. Past Medical & Surgical Medical Problems: (1) Abdominal pain (2) Allergic rhinitis (3) Anxiety (4) Asthma, mild intermittent (5) section (6) Chest pain (7) Degenerative cervical disc (8) DIAB MARGARITA WO COMPL, TYPE II OR UNSPEC TYPE, NOT UNCNTRLD (9) Diabetes (10) ESOPHAGEAL REFLUX (11) Gastroparesis due to DM (12) HTN (hypertension) (13) HYPERLIPIDEMIA NEC/NOS (14) Hypertension (15) Kidney disease (16) Lyme disease (17) MIGRAINE W/O AURA W/O INTRACT MGRN W/O STATUS MIGRAINOSUS (18) Obesity (BMI 30.0-34.9) (19) OVARIAN CYST NEC/NOS (20) Pancreatitis (21) Slow transit constipation (22) Tobacco use disorder (23) TOBACCO USE DISORDER (24) UTERINE LEIOMYOMA NOS Surgical Problems: (1) H/O esophagogastroduodenoscopy (2) H/O laparoscopy (3) H/O oophorectomy (4) H/O: (5) History of cholecystectomy (6) History of partial hysterectomy (7) History of tonsillectomy (8) S/P cholecystectomy Family History FH: cancer FHx: diabetes mellitus FHx: gallbladder disease FHx: heart disease FHx: hypertension FHx: lung disease FHx: seizures Heart disease Ischemic heart disease MOTHER (52) GRANDFATHER (40s) Uncle (50) Uncle (50) Social History Smoking Status: Current Every Day Smoker Alcohol Use: none Drug Use: none Marital Status: Housing Status: lives with family Current/Historical Medications Scheduled Aspirin (Sb Low Dose Asa Ec), 81 MG PO DAILY Beclomethasone Dip (Qvar), 2 PUFFS PO BID Buprenorphine Hcl (Subutex), 8 MG UT BID Citalopram (Citalopram Hydrobromide), 20 MG PO DAILY Estrogens, Conjugated (Premarin), 0.3 MG PO DAILY Insulin Aspart (Novolog Flexpen), 1 DOSE SC UD Insulin Glargine (Basaglar Kwikpen), 1 DOSE SC QPM Lisinopril (Lisinopril), 10 MG PO DAILY Lorazepam (Lorazepam), 1 MG PO HS Metoprolol Succinate (Metoprolol Succinate ER), 12.5 MG PO QAM Ondasetron Odt (Zofran Odt), 4 MG SL Q6H Pantoprazole (Pantoprazole Sodium), 40 MG PO QAM Ranitidine (Zantac), 150 MG PO BID Sennosides (Senokot), 17.2 MG PO BID Simvastatin (Simvastatin), 20 MG PO HS Scheduled PRN Albuterol Hfa (Ventolin Hfa), 2 PUFFS INH Q4H PRN for SOB/Wheezing Ondansetron Hcl (Zofran), 8 MG PO Q6H PRN for Nausea or Vomiting Polyethylene Glycol 3350 (Miralax), 17 GM PO DAILY PRN for Constipation Allergies Coded Allergies: Sulfa Antibiotics (Unverified Allergy, Intermediate, RASH/SWELLS/HIVES, ) Cefuroxime (Verified Allergy, Mild, RASH, 08/11/17) BEE STING (Unverified Allergy, Unknown, swelling, 08/11/17) Nicotine (Verified Allergy, Unknown, RASH, 08/11/17) NICOTINE PATCH Physical Exam Vital Signs Date Time Temp Pulse Resp B/P (MAP) Pulse Ox O2 Delivery O2 Flow Rate FiO2 08/11/17 02:11 85 20 130/81 97 Room Air 08/11/17 01:20 98 Room Air 08/11/17 01:18 80 16 124/84 98 08/11/17 01:16 78 08/11/17 01:14 124/84 98 08/11/17 00:45 36.5 95 18 132/90 97 Room Air Physical Exam GENERAL: Awake, alert, well-appearing, in no distress HENT: Normocephalic, atraumatic. Oropharynx unremarkable. EYES: Normal conjunctiva. Sclera non-icteric. NECK: Supple. No nuchal rigidity. FROM. No JVD. RESPIRATORY: Clear to auscultation. CARDIAC: Regular rate, normal rhythm. Extremities warm and well perfused. Pulses equal. ABDOMEN: Soft, non-distended. No tenderness to palpation. No rebound or guarding. No masses. RECTAL: Deferred. MUSCULOSKELETAL: Chest examination reveals no tenderness. The back is symmetrical on inspection without obvious abnormality. There is no CVA tenderness to palpation. No joint edema. LOWER EXTREMITIES: Calves are equal size bilaterally and non-tender. No edema. No discoloration. NEURO: Normal sensorium. No sensory or motor deficits noted. SKIN: No rash or jaundice noted. Medical Decision & Procedures Laboratory Results 08/11/17 01:10 Red Blood Count 4.67, Mean Corpuscular Volume 83.5, Mean Corpuscular Hemoglobin 29.3, Mean Corpuscular Hemoglobin Concent 35.1, Mean Platelet Volume 10.8, Neutrophils (%) (Auto) 56.4, Lymphocytes (%) (Auto) 35.1, Monocytes (%) (Auto) 6.3, Eosinophils (%) (Auto) 1.7, Basophils (%) (Auto) 0.2, Neutrophils # (Auto) 5.67, Lymphocytes # (Auto) 3.52, Monocytes # (Auto) 0.63, Eosinophils # (Auto) 0.17, Basophils # (Auto) 0.02 08/11/17 01:10 Test 08/11/17 00:50 08/11/17 01:10 Urine Color YELLOW Urine Appearance CLEAR (CLEAR) Urine pH 6.5 (4.5-7.5) Urine Specific [place] 1.008 (1.000-1.030) Urine Protein NEG (NEG) Urine Glucose (UA) TRACE (NEG) Urine Ketones NEG (NEG) Urine Occult Blood NEG (NEG) Urine Nitrite NEG (NEG) Urine Bilirubin NEG (NEG) Urine Urobilinogen NEG (NEG) Urine Leukocyte Esterase NEG (NEG) White Blood Count 10.04 K/uL (4.8-10.8) Red Blood Count 4.67 M/uL (4.2-5.4) Hemoglobin 13.7 g/dL (12.0-16.0) Hematocrit 39.0 % (37-47) Mean Corpuscular Volume 83.5 fL (80-100) Mean Corpuscular Hemoglobin 29.3 pg (25-34) Mean Corpuscular Hemoglobin Concent 35.1 g/dl (32-36) Platelet Count 140 K/uL (130-400) Mean Platelet Volume 10.8 fL (7.4-10.4) Neutrophils (%) (Auto) 56.4 % Lymphocytes (%) (Auto) 35.1 % Monocytes (%) (Auto) 6.3 % Eosinophils (%) (Auto) 1.7 % Basophils (%) (Auto) 0.2 % Neutrophils # (Auto) 5.67 K/uL (1.4-6.5) Lymphocytes # (Auto) 3.52 K/uL (1.2-3.4) Monocytes # (Auto) 0.63 K/uL (0.11-0.59) Eosinophils # (Auto) 0.17 K/uL (0-0.5) Basophils # (Auto) 0.02 K/uL (0-0.2) RDW Standard Deviation 40.6 fL (36.4-46.3) RDW Coefficient of Variation 13.5 % (11.5-14.5) Immature Granulocyte % (Auto) 0.3 % Immature Granulocyte # (Auto) 0.03 K/uL (0.00-0.02) Anion Gap 8.0 mmol/L (3-11) Est Creatinine Clear Calc Drug Dose 132.3 ml/min Estimated GFR () 129.0 Estimated GFR (Non- 111.3 BUN/Creatinine Ratio 6.1 (10-20) Calcium Level 8.5 mg/dl (8.5-10.1) Total Bilirubin 0.3 mg/dl (0.2-1) Direct Bilirubin < 0.1 mg/dl (0-0.2) Aspartate Amino Transf (AST/SGOT) 5 U/L (15-37) Alanine Aminotransferase (ALT/SGPT) 30 U/L (12-78) Alkaline Phosphatase 117 U/L (45-117) Total Protein 7.4 gm/dl (6.4-8.2) Albumin 3.5 gm/dl (3.4-5.0) Lipase 248 U/L (73-393) Laboratory results reviewed by me Medications Administered Medications (Trade) Dose Ordered Sig/Terrance Route Start Time Stop Time Status Last Admin Dose Admin Ondansetron HCl (Zofran Inj) 4 mg NOW STAT IV 08/11/17 01:08 08/11/17 01:10 DC 08/11/17 01:34 4 MG Pantoprazole Sodium 40 mg/ Syringe 10 ml @ 5 mls/min NOW ONCE IV 08/11/17 01:15 08/11/17 01:16 DC 08/11/17 01:49 5 MLS/MIN ED Course 0104: The patient was evaluated in room B5. A complete history and physical exam was performed. 0108: Zofran 4 mg IV. 0115: Pantoprazole Sodium 40 mg/Syringe 10 ml @ 5 ml/min IV. 0210: I reevaluated the patient. She is feeling well and resting comfortably. I discussed her results and discharge instructions and she verbalized complete understanding and agreement. Medical Decision The differential diagnoses considered include gastritis, gastroparesis, pancreatitis and colitis. Patient resting in no distress on repeat examination at 2:15 AM. Patient has been seen multiple times in the emergency department for upper abdominal pain. Patient reportedly has follow-up this week with gastroenterology. Patient presumptively has gastritis. Patient has no vomiting no fever no diarrhea throughout emergency department evaluation. I reviewed the patient's most recent 3 visits to this emergency department. I discussed evaluation with the patient at bedside she did receive IV Zofran and Protonix and a GI cocktail. Medication Reconcilliation Current Medication List: was personally reviewed by me Blood Pressure Screening Patient's blood pressure: Normal blood pressure Blood pressure disposition: Did not require urgent referral Impression Primary Impression: Gastritis Additional Impression: Abdominal pain Scribe Attestation The scribe's documentation has been prepared under my direction and personally reviewed by me in its entirety. I confirm that the note above accurately reflects all work, treatment, procedures, and medical decision making performed by me. Departure Information Dispostion Home / Self-Care Referrals No Doctor, Assigned (PCP) Patient Instructions ED Food Poison Or Gastroenteritis, My [facility] Additional Instructions Follow-up with GI physician as scheduled seen next week. Return for increased pain fever or any concerns Problem Qualifiers
[2017-08-11 01:12] LABS: URINE APPEARANCE CLEAR (CLEAR); URINE BILIRUBIN NEG (NEG); URINE COLOR YELLOW; URINE NITRITE NEG (NEG); URINE PH 6.5 (4.5-7.5); URINE SPECIFIC GRAVITY 1.008 (1.000-1.030); UROBILINOGEN NEG (NEG); ZZUR CULT IF INDIC CLEAN CATCH NO
[2017-08-11 01:15] LABS: MANUAL MICROSCOPIC REQUIRED? NO; REVIEW REQ? NO
[2017-08-11] MEDS ORDERED: PANTOprazole INJ 40 MG in SYRINGE 0 ML IV ONE (01:15)
[2017-08-11 01:20] VITALS: O2SAT 98
[2017-08-11 01:25] LABS: BASO % 0.2 %; BASO ABS # 0.02 K/uL (0-0.2); COMPLETE YES; EOS % 1.7 %; IG% 0.3 %; LYMPH % 35.1 %; LYMPH ABS # 3.52 K/uL (1.2-3.4); MEAN CELL VOLUME 83.5 fL (80-100); MEAN CORPUSCULAR HEMOGLOBIN 29.3 pg (25-34); MEAN CORPUSCULAR HGB CONC 35.1 g/dl (32-36); MEAN PLATELET VOLUME 10.8 fL (7.4-10.4); MONO % 6.3 %; NEUT % 56.4 %; PLATELET COUNT 140 K/uL (130-400); RED BLOOD COUNT 4.67 M/uL (4.2-5.4); WHITE BLOOD COUNT 10.04 K/uL (4.8-10.8)
[2017-08-11 01:43] LABS: ALT/SGPT 30 U/L (12-78); AST/SGOT 5 U/L (15-37); BLOOD UREA NITROGEN 4 mg/dl (7-18); BUN/CREATININE RATIO 6.1 (10-20); CALCIUM 8.5 mg/dl (8.5-10.1); CARBON DIOXIDE 28 mmol/L (21-32); CHLORIDE 101 mmol/L (98-107); CREATININE 0.58 mg/dl (0.60-1.20); GLUCOSE 236 mg/dl (70-99); POTASSIUM 3.2 mmol/L (3.5-5.1); SODIUM 137 mmol/L (136-145)
[2017-08-11 01:46] LABS: ALKALINE PHOSPHATASE 117 U/L (45-117)
[2017-08-11 02:11] VITALS: BP 130/81; PULSE 85; O2SAT 97
[2017-08-11] MEDS ORDERED: GI COCKTAIL PO STA (02:13)
[2017-08-11] MEDS ORDERED: LIDOCAINE HCL 2% VISC SOLN 20 ML UDC ONE (02:21)
[2017-08-11] MEDS ORDERED: ALUMINUM/MAGNESIUM SUSP 30 ML UDC ONE (02:21)
== END 2017-08-11 02:44 | disposition home or self-care (01) ==
LOC: C.EDB 00:36
DX: K29.70 Gastritis, unspecified, without bleeding (principal); R10.9 Unspecified abdominal pain; I10 Essential (primary) hypertension; E78.5 Hyperlipidemia, unspecified; E11.9 Type 2 diabetes mellitus without complications; K21.9 Gastro-esophageal reflux disease without esophagitis; J45.909 Unspecified asthma, uncomplicated; Z79.4 Long term (current) use of insulin; Z79.82 Long term (current) use of aspirin; Z79.899 Other long term (current) drug therapy; Z86.19 Personal history of other infectious and parasitic diseases; Z87.19 Personal history of other diseases of the digestive system; Z87.448 Personal history of other diseases of urinary system; Z82.0 Family history of epilepsy and other diseases of the nervous system; Z82.49 Family history of ischemic heart disease and other diseases of the circulatory system; Z83.3 Family history of diabetes mellitus; Z83.79 Family history of other diseases of the digestive system; Z83.6 Family history of other diseases of the respiratory system; F17.200 Nicotine dependence, unspecified, uncomplicated